=== PATIENT | female | born 1975 | race African-American/Black ===

== ENCOUNTER 2020-10-11 14:04 | Outpatient (REF) | payer MEDICARE, MEDICAID, SELFPAY ==
--- NOTE | 2020-10-11 | US_ITS ---
EXAMINATION: PELVIC ULTRASOUND CLINICAL INFORMATION: Excessive and frequent menstruation COMPARISON: None TECHNIQUE: Transabdominal and transvaginal pelvic ultrasound was performed. Transvaginal exam was performed for better visualization of the uterus and ovaries. FINDINGS: The uterus is anteverted and measures 10 x 4 x 5 cm in dimension. Uterine echotexture is heterogeneous. There is a 3.6 x 2.4 x 3.3 cm hypoechoic area in the anterior body of the uterus questionable for a fibroid. No other focal uterine lesion is seen. Endometrial thickness is normal measuring 3 mm. There are nabothian cysts in the cervix. The ovaries are normal-appearing. The right ovary measures 2.4 x 2.4 x 2.2 cm. The left ovary measures 3.4 x 2.3 x 3.2 cm. There is no fluid in the pelvis. US/US pelvic complete IMPRESSION: Heterogeneous appearing uterus. 3.6 x 2.4 x 3.3 cm hypoechoic area in the anterior uterine body questionable for a fibroid.
--- NOTE | 2020-10-11 | US_ITS ---
EXAMINATION: PELVIC ULTRASOUND CLINICAL INFORMATION: Excessive and frequent menstruation COMPARISON: None TECHNIQUE: Transabdominal and transvaginal pelvic ultrasound was performed. Transvaginal exam was performed for better visualization of the uterus and ovaries. FINDINGS: The uterus is anteverted and measures 10 x 4 x 5 cm in dimension. Uterine echotexture is heterogeneous. There is a 3.6 x 2.4 x 3.3 cm hypoechoic area in the anterior body of the uterus questionable for a fibroid. No other focal uterine lesion is seen. Endometrial thickness is normal measuring 3 mm. There are nabothian cysts in the cervix. The ovaries are normal-appearing. The right ovary measures 2.4 x 2.4 x 2.2 cm. The left ovary measures 3.4 x 2.3 x 3.2 cm. There is no fluid in the pelvis. US/US transvaginal IMPRESSION: Heterogeneous appearing uterus. 3.6 x 2.4 x 3.3 cm hypoechoic area in the anterior uterine body questionable for a fibroid.
== END 2020-10-11 14:05 | disposition home or self-care (01) ==
LOC: HO.HMGCX 14:04
PROVIDERS: PCP Pediatrics; Visit Provider Advanced Practice Midwife
DX: N92.0 Excessive and frequent menstruation with regular cycle (principal)
CPT/HCPCS: 76830; 76856

== ENCOUNTER → 2022-06-26 13:40 | Outpatient (BNVA) | payer MEDICARE, MEDICAID, SELFPAY | PROVIDERS: PCP Pediatrics; Visit Provider Internal Medicine | DX: R11.0 Nausea (principal); R11.10 Vomiting, unspecified | CPT/HCPCS: 99202 ==

== ENCOUNTER 2022-07-31 10:28 | Outpatient (REF) | payer MEDICARE, MEDICAID, SELFPAY ==
--- NOTE | ~2022-07-31 | FL_ITS ---
PROCEDURE: BARIUM SWALLOW/UPPER GI DOUBLE CONTRAST CLINICAL INFORMATION: Vomiting. COMPARISON: None TECHNIQUE: Routine upper GI air-contrast study and barium swallow was performed in upright and lying position. FINDINGS: Following oral administration of thick barium and effervescent granules there is normal propagation of bolus from the oral cavity through the pharynx into stomach without any evidence of obstruction, narrowing or stricture. No laryngeal penetration or aspiration seen. No retention of barium in the valleculae or piriform sinuses. On placing patient supine and prone there is prominent gastric rugae but no ulceration seen. The course, caliber and peristalsis of stomach and the duodenum is normal. There is moderate gastroesophageal reflux without hiatal hernia. There is increased gastric secretions. FL/FL upper GI w Ba Swallow IMPRESSION: Findings highly suspicious for gastritis but no gastric or duodenal ulcer seen. Moderate gastroesophageal reflux but no hiatal hernia seen.
== END 2022-07-31 10:29 | disposition home or self-care (01) ==
LOC: HO.XRAY 10:28
PROVIDERS: PCP Pediatrics; Visit Provider Internal Medicine
DX: R11.10 Vomiting, unspecified (principal)
CPT/HCPCS: 74240

== ENCOUNTER 2022-08-06 11:06 | Outpatient (REF) | payer MEDICARE, MEDICAID, SELFPAY ==
--- NOTE | ~2022-08-06 | US_ITS ---
EXAMINATION: US ABDOMEN COMPLETE CLINICAL INFORMATION: Vomiting, unspecified. COMPARISON: None TECHNIQUE: Real-time imaging of the abdominal viscera. FINDINGS: PANCREAS: Unremarkable ABDOMINAL AORTA: The proximal, mid, and distal segments are normal in caliber. INFERIOR VENA CAVA: Visualized portions are normal. LIVER: Normal. The liver is normal in size. The liver contour is normal. Parenchymal echogenicity is normal. No focal hepatic lesion. There is no intrahepatic biliary duct dilatation seen. GALLBLADDER: Normal. The gallbladder is physiologically distended without evidence of stones, sludge, polyps, wall thickening or pericholecystic fluid. COMMON BILE DUCT: Normal in caliber measuring 0.7 cm in diameter. RIGHT KIDNEY: Normal. No hydronephrosis. No renal calculi or focal parenchymal lesions. The kidney measures 10.4 cm in maximum dimension. LEFT KIDNEY: Normal. No hydronephrosis. No renal calculi or focal parenchymal lesions. The kidney measures 10.2 cm in maximum dimension. SPLEEN: Normal. The spleen measures 6.3 cm in maximum dimension. FREE FLUID: None. US/US abdomen complete IMPRESSION: Normal study.
== END 2022-08-06 11:07 | disposition home or self-care (01) ==
LOC: HO.US 11:06
PROVIDERS: Visit Provider Internal Medicine
DX: R11.10 Vomiting, unspecified (principal)
CPT/HCPCS: 76700

== ENCOUNTER 2022-08-09 13:00 | Day surgery (SDC) | payer MEDICARE, MEDICAID, SELFPAY ==
--- NOTE | 2022-08-08 13:08 | HO.ANESPROP2 ---
Documented by User: Antonina Gonzalez NP 08/08/22 13:09 HPI - Anesthesia Eval Consult details Narrative: 46yo F for Upper Endoscopy PMFSH Active Problems Active Problems: All Active Problems (Updated 06/26/22 @ 16:42 by Gabrielle Castro MD) Nausea (Acute) Vomiting (Acute) Past Medical History Medical History (Updated 08/08/22 @ 13:09 by Antonina Gonzalez NP) Anxiety Asthma Bipolar disorder Chondromalacia Depression Family History Family History Mother HTN (hypertension) Heart attack Surgical History Surgical History (Updated 08/09/22 @ 13:38 by Shanika Begum RN) Hx of section Hx of wisdom tooth extraction Tubal ligation status Social History Social History Household Members: Children Alcohol intake: current Alcohol intake frequency: holidays/special occasions only Patient Tobacco Use Status: Never used Tobacco Substance Use Type: Marijuana Current occupational status: employed 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 Meds Allergies Allergy/AdvReac Type Severity Reaction Status Date / Time latex Allergy Severe Anaphylaxis Verified 08/09/22 13:39 zolpidem [From Ambien] Allergy Severe Confusion Verified 06/26/22 13:50 shrimp Allergy Severe Eye Uncoded 06/26/22 13:50 Swelling Home Medications Medication Instructions Recorded Confirmed Last Taken Type docusate sodium 100 mg capsule 100 mg PO BEDTIME PRN constipation 06/26/22 06/26/22 Unknown History ergocalciferol (vitamin D2) 1,250 1,250 mcg PO QWEEK 06/26/22 06/26/22 Unknown History mcg (50,000 unit) capsule fluticasone propionate 110 0 mcg inhalation 06/26/22 06/26/22 Unknown History mcg/actuation HFA aerosol inhaler (Flovent HFA) loratadine 10 mg tablet 10 mg PO DAILY 06/26/22 06/26/22 Unknown History medroxyprogesterone 150 mg/mL mg IM 06/26/22 06/26/22 Unknown History intramuscular suspension methocarbamol 750 mg tablet 750 mg PO Q8H PRN 06/26/22 06/26/22 Unknown History topiramate 50 mg tablet 50 mg PO BID 06/26/22 06/26/22 Unknown History valacyclovir 500 mg tablet 500 mg PO DAILY 06/26/22 06/26/22 Unknown History Exam Exam Date and Time: August 08, 2022 1308 Assessment and Plan Assessment Anesthesia Assessment: Chart Reviewed Documented by User: Vel Bains MD 08/09/22 17:51 HPI - Anesthesia Eval Consult details Narrative: 46yo F for Upper Endoscopy Patient with history of Asthma and Marijuana smoking . We will give Duo-neb pre-op . [facility] Past Medical History Medical History (Updated 08/08/22 @ 13:09 by Antonina Gonzalez NP) Anxiety Asthma Bipolar disorder Chondromalacia Depression Functional capacity: independent ambulation Family History Family History Mother HTN (hypertension) Heart attack Family history of problems with anesthesia: No Surgical History Surgical History (Updated 08/09/22 @ 13:38 by Shanika Begum RN) Hx of section Hx of wisdom tooth extraction Tubal ligation status History of Problems with Anesthesia: No Social History Social History Household Members: Children Alcohol intake: current Alcohol intake frequency: holidays/special occasions only Patient Tobacco Use Status: Never used Tobacco Substance Use Type: Marijuana Current occupational status: employed 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 Allergies Allergy/AdvReac Type Severity Reaction Status Date / Time latex Allergy Severe Anaphylaxis Verified 08/09/22 13:39 zolpidem [From Ambien] Allergy Severe Confusion Verified 06/26/22 13:50 shrimp Allergy Severe Eye Uncoded 06/26/22 13:50 Swelling Home Medications Medication Instructions Recorded Confirmed Last Taken Type docusate sodium 100 mg capsule 100 mg PO BEDTIME PRN constipation 06/26/22 06/26/22 Unknown History ergocalciferol (vitamin D2) 1,250 1,250 mcg PO QWEEK 06/26/22 06/26/22 Unknown History mcg (50,000 unit) capsule fluticasone propionate 110 0 mcg inhalation 06/26/22 06/26/22 Unknown History mcg/actuation HFA aerosol inhaler (Flovent HFA) loratadine 10 mg tablet 10 mg PO DAILY 06/26/22 06/26/22 Unknown History medroxyprogesterone 150 mg/mL mg IM 06/26/22 06/26/22 Unknown History intramuscular suspension methocarbamol 750 mg tablet 750 mg PO Q8H PRN 06/26/22 06/26/22 Unknown History topiramate 50 mg tablet 50 mg PO BID 06/26/22 06/26/22 Unknown History valacyclovir 500 mg tablet 500 mg PO DAILY 06/26/22 06/26/22 Unknown History Exam Airway Mallampati Class: III TM Dist: >3cm Neck ROM: Full Loose/Missing/Broken Teeth: Yes (Poor dentition overall ) Heart: S1,S2 Lungs: b/l breath sounds Assessment and Plan Assessment Anesthesia Assessment: Anesthesia Plan Discussed Final Anesthetic Review Family History of Problems with Anesthesia: No History of Problems with Anesthesia: No NPO: Yes ASA Class: III Final Preanesthetic Review: Meds/Allgs Chart Reviewed, Consent Obtained/Reviewed and Anes Risks/Benef Reviewed Patient Risk: Intermediate Procedure Risk: Intermediate Anesthetic Plan Anesthetic Plan: MAC: Disposition: Standard PACU
[2022-08-09 13:34] VITALS: BMI 28.2; BMI 29.1
[2022-08-09] MEDS: Lactated Ringers 1,000 ML 100 ML IVCONT (14:11)
--- NOTE | 2022-08-09 14:55 | MHC.SHP ---
Pre-Procedural Eval Section A Date of Service: 08/09/22 Section B Chief Complaint: nausea,vomiting Relevant Social History: Other (specify) (marijuana) Present Medications: see Short Stay Collaborative assessment Medical History: No relevant PMH Allergies: Allergies Allergy/AdvReac Type Severity Reaction Status Date / Time latex Allergy Severe Anaphylaxis Verified 08/09/22 13:39 zolpidem [From Ambien] Allergy Severe Confusion Verified 06/26/22 13:50 shrimp Allergy Severe Eye Uncoded 06/26/22 13:50 Swelling Review of Systems Review of Systems Comment: 10 point ROS negative except as above Exam Exam Comment: Gen appear: No acute distress, well nourished HEENT: no icterus, no cervical lymphadenopathy Chest: No overt resp distress Abd: soft, nontender, nondistended Psych: Stable affect, answering questions appropriately Neuro: A/Ox3 noted to move all extremities spontaneously Ext: no peripheral edema Plan Diagnosis/Plan: Unchanged I have reviewed the history and physical and performed a pertinent physical examination on my patient. No changes have occurred unless specified.
--- NOTE | 2022-08-09 15:36 | W.PM.OPN ---
Operative Note Operative Note Date of Service: 08/09/22 Narrative: Procedure: Esophagogastroduodenoscopy Endoscopist: Gabrielle Castro MD Indication: Nausea and vomiting Anesthesia Provider: Mel Gayle CRNA Anesthesia Type: MAC EGD Procedure:?? The procedure, indications, preparation and potential complications were reviewed with the patient, who indicated understanding and gave written informed consent to proceed. A physical exam was performed. The endoscope was introduced through the mouth, and advanced to the second part of duodenum. The patient developed bronchospasm and dropped O2 saturation to 50s% and therefore the procedure was terminated. Please see anesthesia flowsheet for details. Patient was transferred to PACU once her saturations recovered. Upper GI series ordered.
[2022-08-09 15:40] VITALS: BP 120/75; PULSE 97; RESP 16; TEMP 37.7; O2SAT 100
[2022-08-09 15:55] VITALS: BP 107/82; PULSE 82; RESP 18; TEMP 37.1; O2SAT 100
== END 2022-08-09 16:17 | disposition home or self-care (01) ==
PROVIDERS: PCP Pediatrics; Visit Provider Internal Medicine
PROC: 0DJ08ZZ Inspection of Upper Intestinal Tract, Via Natural or Artificial Opening Endoscopic (ICD-10-PCS; CPT 43235; principal; 2022-08-09 14:10)
DX: K91.81 Other intraoperative complications of digestive system (principal); J98.01 Acute bronchospasm; R09.89 Other specified symptoms and signs involving the circulatory and respiratory systems; Y84.8 Other medical procedures as the cause of abnormal reaction of the patient, or of later complication, without mention of misadventure at the time of the procedure; Y73.8 Miscellaneous gastroenterology and urology devices associated with adverse incidents, not elsewhere classified; Y92.234 Operating room of hospital as the place of occurrence of the external cause; K21.9 Gastro-esophageal reflux disease without esophagitis; R11.10 Vomiting, unspecified; F31.9 Bipolar disorder, unspecified; M19.90 Unspecified osteoarthritis, unspecified site; F12.90 Cannabis use, unspecified, uncomplicated; Z79.51 Long term (current) use of inhaled steroids; Z79.899 Other long term (current) drug therapy; Z88.8 Allergy status to other drugs, medicaments and biological substances
CPT/HCPCS: 43235

== ENCOUNTER → 2022-08-28 11:30 | Outpatient (BNVA) | payer MEDICARE, MEDICAID, SELFPAY | PROVIDERS: PCP Pediatrics; Visit Provider Internal Medicine | DX: R11.2 Nausea with vomiting, unspecified (principal); D50.9 Iron deficiency anemia, unspecified | CPT/HCPCS: 99212 ==

== ENCOUNTER 2023-05-06 16:08 | Outpatient (REF) | payer OTHER, SELFPAY ==
[2023-05-06 17:37] LABS: MANUAL DIFF FLAG NO
[2023-05-06 18:02] LABS: Basophils Absolute Auto 0.1 X10*3/uL (0.0-0.2); Basophils Percent Auto 0.7 % (0-2); Eosinophils Absolute Auto 0.1 X10*3/uL (0.0-0.4); Eosinophils Percent Auto 1.6 % (0-4); Hematocrit 35.3 % (37.0-47.0); Imm Gran Abs Auto 0.04 X10*3/uL (0.00-0.03); Imm Gran Pct Auto 0.5 % (0.0-0.4); Lymphocytes Absolute Auto 2.8 X10*3/uL (1.2-4.9); Lymphocytes Percent Auto 34.2 % (20-40); Mean Corpuscular Hemoglobin 32.3 pg (27.0-33.0); Mean Corpuscular Volume 94.9 fL (80.0-98.0); Mean Platelet Volume 10.9 fL (9.4-12.3); Monocytes Absolute Auto 0.6 X10*3/uL (0.1-1.2); Monocytes Percent Auto 7.5 % (2-11); Neutrophils Absolute Auto 4.6 x10*3/uL (2.0-8.3); Neutrophils Percent Auto 55.5 % (45-73); Platelet Count 266 X10*3/uL (160-400); Red Blood Count 3.72 X10*6/uL (4.20-5.50); Red Cell Distribution Width 15.1 % (11.0-16.0); White Blood Count 8.3 X10*3/uL (4.8-10.8)
[2023-05-07 02:12] LABS: Alanine Aminotransferase 17 U/L (0-31); Albumin Level 3.9 g/dL (3.5-5.0); Alkaline Phosphatase 58 U/L (39-117); Anion Gap 10 (12-20); Aspartate Amino Transferase 18 U/L (5-31); Bilirubin Total 0.3 mg/dL (0.0-1.0); Blood Urea Nitrogen 10 mg/dL (9-16); Calcium 8.7 mg/dL (8.4-10.2); Carbon Dioxide 22 mmol/L (22-29); Chloride 111 mmol/L (96-108); Estimated Glomerular Filt Rate > 60; Glucose Random 79 mg/dL (60-115); Potassium 3.2 mmol/L (3.3-5.1); Sodium 140 mmol/L (135-145); Total Protein 6.9 g/dL (6.5-8.0)
[2023-05-07 06:14] LABS: CT PCR NOT DETECTED (Not Detect.); NG PCR NOT DETECTED (Not Detect.)
== END 2023-05-06 16:09 | disposition home or self-care (01) ==
LOC: HO.CHCLDS 16:08
PROVIDERS: Visit Provider Family Medicine
DX: R10.9 Unspecified abdominal pain (principal); R30.0 Dysuria
CPT/HCPCS: 0353U; 36415; 80053; 81513; 85025; 87086; 87480; 87510; 87660

== ENCOUNTER 2023-05-24 10:58 | Outpatient (REF) | payer OTHER, SELFPAY ==
[2023-05-24 14:58] LABS: Anion Gap 13 (12-20); Blood Urea Nitrogen 9 mg/dL (9-16); Calcium 9.4 mg/dL (8.4-10.2); Carbon Dioxide 19 mmol/L (22-29); Chloride 108 mmol/L (96-108); Estimated Glomerular Filt Rate > 60; Glucose Fasting 77 mg/dL (60-99); Potassium 3.3 mmol/L (3.3-5.1); Sodium 137 mmol/L (135-145)
== END 2023-05-24 10:59 | disposition home or self-care (01) ==
LOC: HO.CHCLDS 10:58
PROVIDERS: Visit Provider Family Medicine
DX: E87.6 Hypokalemia (principal)
CPT/HCPCS: 36415; 80048

== ENCOUNTER 2023-06-04 13:31 | Outpatient (REF) | payer OTHER, SELFPAY | END 2023-06-04 13:32 | disposition home or self-care (01) | LOC: HO.CHCLNP 13:31 | PROVIDERS: Visit Provider Pediatrics | DX: N39.0 Urinary tract infection, site not specified (principal) | CPT/HCPCS: 87086 ==

== ENCOUNTER 2023-09-13 11:30 | Outpatient (AMB) | payer OTHER, SELFPAY ==
--- NOTE | 2023-09-13 11:33 | A.OFFVIS_ITS ---
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 Pt reports she had PSG sleep study done in 10/2022, and the result was significant for a moderate degree of sleep apnea. The AHI was 22.4/hr and oxygen neelam was 81%. Pt was told that the CPAP ordered, but she never got her CPAP. Pt continue to endorse loud snoring, disrupted sleep, and gasping arousals and excessive daytime sleepiness. Sleep questionnaire: Have you ever been diagnosed with a sleep disorder? Yes, ROEL. Have you ever had a sleep study in the past? Yes, PSG done in 10/2022. Have you ever been treated for a sleep disorder? Not yet. Do you take medications for a sleep disorder? No. Do you snore? Yes. Do you wake up gasping at night? Yes. Do you have episodes of apneas? Yes. If yes, are they witnessed? Yes. Do you have episodes of nocturnal chest pain or dyspnea? Yes. Do you have difficulty initiating sleep? Yes. Do you have difficulty maintaining sleep? Yes. Do you wake up tired? Yes. Do you have headaches upon awakening? Yes. Do you wake up with dry mouth or throat? Yes. Do you have GERD? Yes. Do you have nocturia? Yes. Do you have nocturnal leg cramps? Yes. Do you have symptoms of restless legs? Yes. Do you act out your dreams? When she has nightmare. Sleep hygiene questionnaire: What is your usual sleep routine? Usual bedtime is at 9 pm; Usual wake up time is at 5:30 am. Do you take naps? If she can. Is your sleep environment cool, dark, and quiet? Yes. Do you exercise? No. Do you take caffeine or other stimulants? Coffee 1-2 cups in the moring. Do you use electronics in bed? Yes, sometimes. What is your work schedule? 3 nights a week, 7 days a week. Hypersomnolence questionnaire: Do you have daytime tiredness or fatigue? Yes. Do you easily fall asleep when inactive? Yes. Have you ever had episodes of sudden weakness? No. Have you ever had episodes of sudden weakness associated with strong emotions? No. 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 Review of Systems Const All systems reviewed & are unremarkable except as noted in HPI and below Physical Exam Vital Signs: Last Vital Signs Pulse 76 09/13/23 11:34 Resp 17 09/13/23 11:34 BP 110/74 09/13/23 11:34 BMI result Body Mass Index 31.2 Const General: cooperative Nutritional Appearance: obese Orientation/consciousness: patient oriented x3 Neck Neck: Yes full ROM and Yes supple Resp Effort & Inspection: normal respiratory effort and able to speak in complete sentences Neuro General: patient oriented x3 and gait normal Cranial nerves: Yes CN's II-XII intact bilaterally Cognition (Neuro): normal cognition Gait exam (Neuro): Normal gait present Motor exam (neuro): 5/5 motor strength present throughout, Pronator motor function not present and no tremor noted Psych Appearance: grossly normal Mental Status: mental status grossly normal Affect: normal affect Attitude: cooperative Assessment & Plan Assessment & Plan (1) ROEL (obstructive sleep apnea): Comment: Moderate degree of sleep apnea. The AHI was 22/hr and oxygen neelam was 81% Code(s): G47.33 - Obstructive sleep apnea (adult) (pediatric) (2) Leg muscle spasm: Code(s): M62.838 - Other muscle spasm Plan Advised patient to start APAP [id number]. The CPAP prescription will send to [facility]. Stressed compliance, use CPAP nightly and more than 4 hrs. Advised patient to try magnesium 400 mg qHS to prevent leg muscle cramping. Medications: New magnesium oxide 400 mg PO BEDTIME 30 days 30 tabs 6RF Coding Level of Care Code New Pt Level 3 (67267) Diagnoses ROEL (obstructive sleep apnea) G47.33 Leg muscle spasm M62.838
[2023-09-13 11:34] VITALS: BP 110/74; PULSE 76; RESP 17; BMI 31.2
== END 2023-09-13 12:04 | disposition home or self-care (01) ==
PROVIDERS: PCP Pediatrics; Visit Provider Nurse Practitioner Family
DX: G47.33 Obstructive sleep apnea (adult) (pediatric) (principal); M62.838 Other muscle spasm
CPT/HCPCS: 99203

== ENCOUNTER → 2023-09-13 11:30 | Outpatient (BNVA) | payer OTHER, SELFPAY | PROVIDERS: PCP Pediatrics; Visit Provider Nurse Practitioner Family | DX: G47.33 Obstructive sleep apnea (adult) (pediatric) (principal); M62.838 Other muscle spasm | CPT/HCPCS: 99202 ==

== ENCOUNTER 2023-10-09 09:44 | Outpatient (REF) | payer OTHER, SELFPAY ==
[2023-10-09 14:30] LABS: MANUAL DIFF FLAG NO
[2023-10-09 14:33] LABS: Basophils Percent Auto 0.2 % (0-2); Hematocrit 40.4 % (37.0-47.0); Hemoglobin 13.8 g/dl (12.0-16.0); Imm Gran Abs Auto 0.09 X10*3/uL (0.00-0.03); Imm Gran Pct Auto 0.7 % (0.0-0.4); Lymphocytes Percent Auto 7.9 % (20-40); Mean Corpuscular HGB Conc 34.2 g/dl (31.0-35.0); Mean Corpuscular Volume 93.7 fL (80.0-98.0); Mean Platelet Volume 11.1 fL (9.4-12.3); Monocytes Absolute Auto 0.5 X10*3/uL (0.1-1.2); Monocytes Percent Auto 3.6 % (2-11); Neutrophils Absolute Auto 11.3 x10*3/uL (2.0-8.3); Neutrophils Percent Auto 87.6 % (45-73); Platelet Count 272 X10*3/uL (160-400); Red Blood Count 4.31 X10*6/uL (4.20-5.50); Red Cell Distribution Width 14.1 % (11.0-16.0); White Blood Count 12.9 X10*3/uL (4.8-10.8)
[2023-10-09 14:51] LABS: Anion Gap 14 (12-20); Blood Urea Nitrogen 8 mg/dL (9-16); Calcium 9.5 mg/dL (8.4-10.2); Carbon Dioxide 19 mmol/L (22-29); Chloride 107 mmol/L (96-108); Estimated Glomerular Filt Rate > 60; Glucose Random 133 mg/dL (60-115); Potassium 3.7 mmol/L (3.3-5.1); Sodium 136 mmol/L (135-145)
[2023-10-09 15:13] LABS: Ferritin 32 ng/mL (10-250)
== END 2023-10-09 09:45 | disposition home or self-care (01) ==
LOC: HO.CHCLDS 09:44
PROVIDERS: Visit Provider Pediatrics
DX: G47.33 Obstructive sleep apnea (adult) (pediatric) (principal); Q28.3 Other malformations of cerebral vessels
CPT/HCPCS: 36415; 80048; 82728; 85025

== ENCOUNTER 2024-03-23 12:08 | Outpatient (REF) | payer OTHER, SELFPAY ==
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
== END 2024-03-23 12:09 | disposition home or self-care (01) ==
LOC: HO.HHCX 12:08
PROVIDERS: Visit Provider Internal Medicine
DX: S16.1XXD Strain of muscle, fascia and tendon at neck level, subsequent encounter (principal)
CPT/HCPCS: 72050

== ENCOUNTER 2024-04-28 14:31 | Outpatient (REF) | payer OTHER, SELFPAY ==
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
== END 2024-04-28 14:32 | disposition home or self-care (01) ==
LOC: HO.HHCX 14:31
PROVIDERS: Visit Provider Internal Medicine
DX: M54.50 Low back pain, unspecified (principal); G89.29 Other chronic pain
CPT/HCPCS: 72100

== ENCOUNTER 2024-09-10 15:58 | Outpatient (REF) | payer OTHER, SELFPAY ==
[2024-09-10 17:30] LABS: MANUAL DIFF FLAG NO
[2024-09-10 17:35] LABS: Basophils Percent Auto 0.6 % (0-2); Eosinophils Absolute Auto 0.1 X10*3/uL (0.0-0.4); Eosinophils Percent Auto 1.5 % (0-4); Hematocrit 37.1 % (37.0-47.0); Hemoglobin 12.8 g/dl (12.0-16.0); Imm Gran Abs Auto 0.02 X10*3/uL (0.00-0.03); Imm Gran Pct Auto 0.3 % (0.0-0.4); Lymphocytes Absolute Auto 2.7 X10*3/uL (1.2-4.9); Lymphocytes Percent Auto 40.9 % (20-40); Mean Corpuscular HGB Conc 34.5 g/dl (31.0-35.0); Mean Corpuscular Hemoglobin 32.5 pg (27.0-33.0); Mean Corpuscular Volume 94.2 fL (80.0-98.0); Mean Platelet Volume 10.7 fL (9.4-12.3); Monocytes Absolute Auto 0.4 X10*3/uL (0.1-1.2); Monocytes Percent Auto 6.6 % (2-11); Neutrophils Absolute Auto 3.3 x10*3/uL (2.0-8.3); Neutrophils Percent Auto 50.1 % (45-73); Platelet Count 235 X10*3/uL (160-400); Red Blood Count 3.94 X10*6/uL (4.20-5.50); Red Cell Distribution Width 15.3 % (11.0-16.0); White Blood Count 6.5 X10*3/uL (4.8-10.8)
[2024-09-10 17:59] LABS: Alanine Aminotransferase 54 U/L (0-31); Albumin Level 3.9 g/dL (3.5-5.0); Alkaline Phosphatase 55 U/L (39-117); Anion Gap 11 (12-20); Aspartate Amino Transferase 63 U/L (5-31); Bilirubin Direct < 0.2 mg/dL (0.0-0.5); Bilirubin Total 0.2 mg/dL (0.0-1.0); Blood Urea Nitrogen 9 mg/dL (9-16); Calcium 9.1 mg/dL (8.4-10.2); Carbon Dioxide 24 mmol/L (22-29); Chloride 110 mmol/L (96-108); Estimated Glomerular Filt Rate > 60; Glucose Random 79 mg/dL (60-115); Lipase 24 U/L (8-78); Potassium 3.2 mmol/L (3.3-5.1); Sodium 142 mmol/L (135-145); Total Protein 7.3 g/dL (6.5-8.0)
[2024-09-10 18:34] LABS: Folate 2.9 ng/mL (> or = 4.0); Vitamin B12 465 pg/mL (200-900)
--- OUTSIDE RECORDS SUMMARY | 2024-09-10 18:50 | XMS_ITS ---
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 Role Phone Cynthia Ralph Unavailable [phone] ALLERGIES, ADVERSE REACTIONS, ALERTS Substance Code Code System Type Reaction Severity Status Start Date End Date Cat RxNorm Other allergy () 0 Shellfish (crab, lobster, shrimp) RxNorm Food allergy ( ) 0 Ambien [id number] RxNorm Drug allergy () 0 MEDICATIONS Medication Code Code System Start Date Stop Date Route Dosage Directions Fill Instructions ibuprofen RxNorm 01/20/20 24 omeprazole RxNorm betamethasone valerate RxNorm 05/11/20 24 topical 1 prednisone [id number] RxNorm 05/11/20 24 oral 1 topiramate RxNorm 12/02/19 24 1 loratadine RxNorm 02/19/20 24 1 PROBLEMS Problem Name Code Code System Start Date End Date Stat us Bipolar disorder, unspecified 79492860 [facility] Active Heartburn 57560150 [facility] Active Toxic effect of venom of bee s, accidental (unintentional), initial encounter 888598355 [facility] 05/11/2024 Active Pruritus, unspecified [id number] [facility] 05/11/2024 Active ENCOUNTERS Encounter Diagnosis Code Code System Date Stat us Toxic effect of venom of bee s, accidental (unintentional), initial encounter 112124734 [facility] 05/11/2024 Active Pruritus, unspecified 242975876 [facility] 05/11/2024 Act chey IMMUNIZATIONS * None VITAL SIGNS Code Code System Vitals Name Date Value and Un its 8462-4 [facility] Blood Pressure-Diastolic 05/11/2024 81 mmHg 8480-6 [facility] Blood Pressure-Systolic 05/11/2024 1 31 mmHg 8867-[address] [facility] Heart Rate 05/11/2024 101 /min 9279-[address] [facility] Respiratory Rate 05/11/2024 18 /min 8310-[address] [facility] Body Temperature 05/11/2024 96.8 F 41397-[address] [facility] Oxygen Saturation 05/11/2024 95 % SOCIAL HISTORY * None PROCEDURES * None MEDICAL EQUIPMENT * Patient has no history of implantable devices ASSESSMENT * None TREATMENT PLAN Type Description Date MEDICATION Take 50 mg tablet 05/11/2024 MEDICATION Take 0.1 % cream 05/11/2024 ORDERS 1. Wash the area 2-3 times a day with Dial soap and water2.Go to the emergency department for any worsening symptoms with increased pain, fever, or rapidly spreading red line going up the arm 05/11/2024 APPOINTMENT If not feeling chris r in 3 day(s), please see your primary care physician. If you do not have a primary care physician, please return to this clinic. 05/11/2024 Lab Tests None GOALS * None HEALTH CONCERNS * No Health Concerns FUNCTIONAL AND COGNITIVE STATUS * None CONSULTATION NOTES * None DISCHARGE SUMMARY NOTES * None HISTORY AND PHYSICAL NOTES * None IMAGING NOTES * None LABORATORY REPORT NARRATIVE NOTES * None PATHOLOGY REPORT NARRATIVE NOTES * None PROGRESS NOTES * None
[2024-09-17 13:44] LABS: Vitamin B6 3.2 ng/mL (2.1-21.7)
== END 2024-09-10 15:59 | disposition home or self-care (01) ==
LOC: HO.CHCLDS 15:58
PROVIDERS: Visit Provider Pediatrics
DX: F31.77 Bipolar disorder, in partial remission, most recent episode mixed (principal)
CPT/HCPCS: 36415; 80048; 80076; 82607; 82746; 83690; 84207; 85025

== ENCOUNTER 2025-01-08 08:24 | Outpatient (AMB) | payer OTHER, SELFPAY ==
--- NOTE | 2025-01-08 08:26 | MHC.OFFVIS ---
Vital Signs 01/08/25 08:27 Height 5 ft 6 in Weight 199 lb 4 oz BMI 32.2 Pulse 67 Pulse Source Pulse Oximeter Pulse Oximetry (%) 98 Oxygen Delivery Method Room Air Intake Visit Reasons: Follow up Intake Note: Patient presents follow up ROEL. Compliance in chart. patient states may need a new study and her mask is ripped and needs a new mask. she called [facility] over a week ago and they have not set her anything. Allergies latex Allergy (Severe, Verified 01/08/25 08:33) Anaphylaxis zolpidem [From Ambien] Allergy (Severe, Verified 01/08/25 08:33) Confusion shrimp Allergy (Severe, Uncoded 09/13/23 11:34) Eye Swelling HPI Comments Details: 49 y/o female patient with hx of asthma presents for new in-person visit to manage sleep apnea. Pt reports she had PSG sleep study done in 10/2022, and the result was significant for a moderate degree of sleep apnea. The AHI was 22.4/hr and oxygen neelam was 81%. ROEL Compliance Report 09/30/2024 - 12/28/2024 HST >4 hours 29 days and 32% Avg total days 2 hours and 11 min Pressures are [id number] Median press 8.7cmH20 Leaks /min 26.1 cmH20 AHI is 2.6 cmH20 Pt is having difficulty with her mask as it has been broken and torn at the sides and leaks air. Pt continues to endorse loud snoring, disrupted sleep, and gasping arousals with excessive daytime sleepiness. R. knee braced for osteoarthritis, bilateral knee pain due to grinding of the knee. Still having Leg pain, bilaterally, due to Chondromalacia, however she is unclear as to whether it is sciatica or RLS, she is having numbness and tingling in both feet radiating up to the calves and knees. She does have a history of REM behavior disorders with nightmares, screaming, kicking and moving around alot in her sleep. Her mood is more depressed and she has been drinking more alcohol then usual, she works nights as a [employer] and is unable to get a full nights sleep. She is interested in seeing a psychologist for mental health reasons, howevere right now she has alot on her plate with work and her children. She is taking topiramate 50mg PO BID to help her sleep. She does not smoke or do edibles. 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 Physical Exam Vital Signs: Last Vital Signs Pulse 67 01/08/25 08:27 Pulse Ox 98 01/08/25 08:27 Oxygen Delivery Method Room Air 01/08/25 08:27 BMI result Body Mass Index 32.2 Const General: cooperative Nutritional Appearance: obese Orientation/consciousness: patient oriented x3 Neck Neck: Yes full ROM and Yes supple Resp Effort & Inspection: normal respiratory effort and able to speak in complete sentences Neuro General: patient oriented x3 and gait normal Cranial nerves: Yes CN's II-XII intact bilaterally Cognition (Neuro): normal cognition Gait exam (Neuro): Normal gait present Motor exam (neuro): 5/5 motor strength present throughout, Pronator motor function not present and no tremor noted Psych Appearance: grossly normal Mental Status: mental status grossly normal Affect: normal affect Attitude: cooperative Results Reviewed Results Reviewed: FINDINGS: The lumbar vertebral bodies demonstrate normal height. Overall sagittal alignment is maintained. Small marginal osteophytes at L3-L4. Mild intervertebral disc space narrowing at L3-L4 through L5-S1. The posterior elements appear adequately aligned paraspinal soft tissues appear unremarkable. Bilateral sacroiliac joints are intact. Mild degenerative changes with osteophytosis and endplate sclerosis at T11-T12 and T12-L1. ROEL Compliance Report 09/30/2024 - 12/28/2024 HST >4 hours 29 days and 32% Avg total days 2 hours and 11 min Pressures are [id number] Median press 8.7cmH20 Leaks /min 26.1 cmH20 AHI is 2.6 cmH20 Assessment & Plan Assessment & Plan (1) ROEL (obstructive sleep apnea): Comment: Moderate degree of sleep apnea. The AHI was 22/hr and oxygen neelam was 81% Code(s): G47.33 - Obstructive sleep apnea (adult) (pediatric) Category: Medical (2) RLS (restless legs syndrome): Code(s): G25.81 - Restless legs syndrome Category: Medical (3) Iron deficiency anemia: Code(s): D50.9 - Iron deficiency anemia, unspecified Category: Medical Qualifiers: Iron deficiency anemia type: chronic blood loss Qualified Code(s): D50.0 - Iron deficiency anemia secondary to blood loss (chronic) (4) Bilateral knee pain: Code(s): M25.561 - Pain in right knee; M25.562 - Pain in left knee Category: Medical Qualifiers: Chronicity: unspecified Qualified Code(s): M25.561 - Pain in right knee; M25.562 - Pain in left knee (5) Hip pain, bilateral: Code(s): M25.551 - Pain in right hip; M25.552 - Pain in left hip Category: Medical Plan Broken / Torn mask, will send order for a new mask today. We discussed the importance of compliance today and for greater than 6 hours each night. Also advised she must tape her mask together until she gets a new mask from [facility]. Advised patient to continue to take 400 mg of magnesium qhs to prevent leg muscle cramping, spasms, pins needles. RLS will evaluate at next visit. VASHTI will check Labs. Will re-check the Ferritin. 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 PT for bilateral hip. Chondromalacia knee pain/foot pain, due to sciatica? or RLS? F/u in 3 months for compliance of Moderate ROEL. Orders: Orders PT Evaluation and Treatment Today M25.551 - Pain in right hip, M25.552 - Pain in left hip, M25.561 - Pain in right knee, M25.562 - Pain in left knee, M54.32 - Sciatica, left side Patient Instructions: Sleep Hygiene provided: set a scheduled bedtime and wake time to help regulate the circadian rhythm and balance the release of pituitary hormones. Sleep in a dark room, temperatures below 68 degrees, and no devices n bed. Limit caffeinated products 6 hours prior to bed, and limit fluids 2-4 hours prior to bed. Gentle night yoga, diffusing essential oils, and playing soft music can be relaxing. Compliance was emphasized once again as she sleeps better with the CPAP, however having a broken mask is not helpful. Low Back Pain radiating to the r/l side, stretching and PT can help to strenghten the legs. Small marginal osteophytes at L3-L4. Mild intervertebral disc space narrowing at L3-L4 through L5-S1. RLS will evaluate at next visit. MRI [facility] or [facility]./ Labs/ Coding Level of Care Code Est Pt Level 4 (59604) Diagnoses ROEL (obstructive sleep apnea) G47.33 RLS (restless legs syndrome) G25.81 Iron deficiency anemia due to chronic blood loss D50.0 Iron deficiency anemia type: chronic blood loss Pain in both knees, unspecified chronicity M25.561; M25.562 Chronicity: unspecified Hip pain, bilateral M25.551; M25.552
[2025-01-08 08:27] VITALS: PULSE 67; O2SAT 98; BMI 32.2
--- OUTSIDE RECORDS SUMMARY | 2025-01-08 08:47 | XMS_ITS | Encounter Summary ---
Author Organization [employer] Address [address] [place] [address] Care Team Providers Care Public Service Administrator Name Role Phone Key Rodríguez MD Primary Care Provider [phone] Encounter Details Date Type Department Care Team ([facility] Contact Info) Description 02/05/2023 Orders Only [facility] MED & PEDS [address] [place], [place] [id number] Jacki Steen LPN Social History Tobacco Use Types Packs/Day Years Used Date Smoking Tobacco: Never Passive Smoke Exposure: Never Smokeless Tobacco: Never Comments Unknown Sex and Gender Information Value Date Recorded Sex Assigned at Female 07/23/2022 10:19 AM EDT Legal Sex Female 10:19 AM EDT Gender Identity Female 07/23/2022 10:19 AM EDT Sexual Orientation Choose not to disclose 2021 10:19 AM EDT COVID-19 Exposure Response Date Recorded In the last 10 days, have yo u been in contact with someone who was confirmed or suspected to have Coronavirus/COVID-19? No / Unsure 01/20/2023 10:49 AM EDT documented as of this encounter Plan of Treatment Upcoming Encounters Date Type Department Care Team (Late st Contact Info) Description 02/03/2025 11:00 AM EDT Office Visit [facility] [address] [place] [address] Key Rodríguez MD [address] [place] [address] documented as of this encounter Visit Diagnoses Not on filedocumented in this encounter Additional Health Concerns Assessment Noted Time PHQ-9 Depression Total Score: 12 023 11:24 AM EDT documented as of this encounter Care Teams Public Service Administrator Relationship Specialty Start Date End Date Key Rodríguez MD [address] [place] [id number] PCP - General Family Medicine 09/23/18 documented as of this encounter
--- OUTSIDE RECORDS SUMMARY | 2025-01-08 08:47 | XMS_ITS | Encounter Summary ---
Author Organization [employer] Address [address] [place] [address] Care Team Providers Care Dry Cleaner Name Role Phone Key Rodríguez MD Primary Care Provider [phone] Encounter Details Date Type Department Care Team (Late st Contact Info) Description 02/05/2024 Telephone [facility] AD[facility] DENTAL [address] [place] [address] Jason Duran, DMD [address] [place] [address] Social History Tobacco Use Types Packs/Day Years Used Date Smoking Tobacco: Never Passive Smoke Exposure: Never Smokeless Tobacco: Never Alcohol Use Standard Drinks/Week Comments Never 0 (1 standard drink = 0.6 oz pur e alcohol) Depression Answer Date Recorded Patient Health Questionnaire-9 Score 3 12/02/2023 Patient Health Questionnaire-9 Score 3 12/02/2023 Last PHQ-9: Questionnaire Data Not on file 0 12/02/2023 Depression Answer Date Recorded Patient Health Questionnaire-2 Score 1 12/02/2023 Comments Unknown Sex and Gender Information Value Date Recorded Sex Assigned at Female 07/23/2022 10:19 AM EDT Legal Sex Female 10:19 AM EDT Gender Identity Female 07/23/2022 10:19 AM EDT Sexual Orientation Choose not to disclose 2021 10:19 AM EDT documented as of this encounter Miscellaneous Notes * Telephone Encounter - Twyla Cochran - 02/05/2024 12:26 PM EDT Patient insurance could not pay for tuff [employer] insurance says if u send the regular kind not the generic [facility] will pay for it Feb 12 2024 at 306 pm pharmacy called they like you to send another scrupt with name brand tooth paste so the insurance will pay documented in this encounter Plan of Treatment Upcoming Encounters Date Type Department Care Team (Late st Contact Info) Description 02/03/2025 11:00 AM EDT Office Visit [facility] MED & PEDS [address] [place] [address] Key Rodríguez MD [address] [place] [address] documented as of this encounter Visit Diagnoses Not on filedocumented in this encounter Additional Health Concerns Assessment Noted Time PHQ-9 Depression Total Score: 3 12/02/19 24 11:23 AM EDT documented as of this encounter Care Teams Dry Cleaner Relationship Specialty Start Date End Date Key Rodríguez MD [address] [place] [address] PCP - General Family Medicine 09/23/18 documented as of this encounter
--- OUTSIDE RECORDS SUMMARY | 2025-01-08 08:47 | XMS_ITS | Encounter Summary ---
Author Organization [employer] Address [address] [place] [address] Care Team Providers Care Floatlight Loading Supervisor Name Role Phone Key Rodríguez MD Primary Care Provider [phone] Reason for Visit * Reason Onset Date Comments Appointment 11/06/2023 [facility] Encounter Details Date Type Department Care Team (Late st Contact Info) Description 10/29/2023 Refill [facility] MEDICINE [address] [place] [address] dAarsh Booth FNP Bipolar affective disorder, remission status unspecified (CMS/[facility]) Social History Tobacco Use Types Packs/Day Years Used Date Smoking Tobacco: Never Passive Smoke Exposure: Never Smokeless Tobacco: Never Alcohol Use Standard Drinks/Week Comments Never 0 (1 standard drink = 0.6 oz pur e alcohol) Depression Answer Date Recorded Patient Health Questionnaire-9 Score 4 08/12/2023 Patient Health Questionnaire-9 Score 4 08/12/2023 Last PHQ-9: Questionnaire Data Not on file 1 10/12/2022 Depression Answer Date Recorded Patient Health Questionnaire-2 Score 0 08/12/2023 Comments Unknown Sex and Gender Information Value Date Recorded Sex Assigned at Female 07/23/2022 10:19 AM EDT Legal Sex Female 10:19 AM EDT Gender Identity Female 07/23/2022 10:19 AM EDT Sexual Orientation Choose not to disclose 2021 10:19 AM EDT documented as of this encounter Miscellaneous Notes * Telephone Encounter - Ayanna Long MA - 11/06/2023 11:21 AM EST T/C placed to pt regarding to re-schedule her apt as tele-visit [facility]. Pt agrees to schedule for 12/02/23. Pt is not active with any other Psych prescriber & still interested in seeing MILL LABOR SUPERVISOR-Adarsh Booth. documented in this encounter Plan of Treatment Upcoming Encounters Date Type Department Care Team ([facility] st Contact Info) Description 02/03/2025 11:00 AM EDT Office Visit [facility]ED[facility] [address] [place] [address] Key Rodríguez MD [address] [place] [address] documented as of this encounter Visit Diagnoses Diagnosis Bipolar affective disorder, remission status unspecified (CMS/HCC) documented in this encounter Additional Health Concerns Assessment Noted Time PHQ-9 Depression Total Score: 4 08/12/20 23 1:51 PM EST documented as of this encounter Care Teams Floatlight Loading Supervisor Relationship Specialty Start Date End Date Key Rodríguez MD [address] [place] [address] PCP - General Family Medicine 09/23/18 documented as of this encounter
--- OUTSIDE RECORDS SUMMARY | 2025-01-08 08:47 | XMS_ITS | Encounter Summary ---
Author Organization [employer] Address [address] [facility] [address] [place] [address] Care Team Providers Care Electrician Manager Name Role Phone Key Rodríguez MD Primary Care Provider [phone] Reason for Visit * Reason Onset Date Comments Med Refill 12/02/2023 Encounter Details Date Type Department Care Team (Late st Contact Info) Description 12/02/2023 Telephone [facility] MEDICINE [address] [place] [address] Key Rodríguez MD [address] [place] [address] Med Refill Social History Tobacco Use Types Packs/Day Years [...] encounter Miscellaneous Notes * Telephone Encounter - Kathy Jay - 12/02/2023 1:02 PM EDT Tc from [facility] calling requesting alternative for Flovent HFA 110 MCG/ACT inhaler, stating is no longer manufactured. documented in this encounter Plan of Treatment Upcoming Encounters Date Type Department Care Team (Late st Contact Info) Description 02/03/2025 11:00 AM EDT Office Visit [facility] MED [facility] PEDS [address] [place] [address] Key Rodríguez MD [address] [place] [address] documented as of this encounter Visit Diagnoses Not on filedocumented in this encounter Additional Health Concerns Assessment Noted Time PHQ-9 Depression Total Score: 3 12/02/19 24 11:23 AM EDT documented as of this encounter Care Teams Electrician Manager Relationship Specialty Start Date End Date Key Rodríguez MD [address] [place] [address] PCP - General Family Medicine 09/23/18 documented as of this encounter
--- OUTSIDE RECORDS SUMMARY | 2025-01-08 08:47 | XMS_ITS | Clinical Summary ---
Author Organization [employer] Address [address] [place] [address] Care Team Providers Care Residential Designer Name Role Phone Key Rodríguez MD Primary Care Provider [phone] Allergies Active Allergy Reactions Criticality Noted Date Comments Cat Dander 05/06/2023 Dust Mite Extract 02/04/2024 Latex Rash Low 08/29/2022 OK to give [place] injections. Shellfish Allergy Swelling 08/29/2022 Zolpidem Hallucinations 09/22/2019 Medications * This document contains information received from the source organization and may not represent a complete record from that organization. ferrous sulfate 325 (65 Fe) MG tablet Take 1 tablet by mouth every 12 (twelve) hours. 016 Active ergocalciferol (Vitamin D2) 1.25 MG (50858 UT) capsuleIndications :Vitamin D deficiency TAKE 1 CAPSULE BY MOUTH ONCE EVERY WEEK 5 capsule 1 022 Active docusate sodium (Colace) 100 MG capsule TAKE 1 CAPSULE BY MOUTH EVERY DAY AT BEDTIME NEEDED FOR CONSTIPATION 023 Active loratadine (Claritin) 10 MG tablet TAKE 1 TABLET BY MOUTH EVERY DAY 023 Active Ventolin HFA 108 (90 Base) MCG/ACT inhalerIndications :Bipolar disorder, in partial remission, most recent episode mixed (CMS/HCC),Moderate persistent asthma in adult without complication INHALE TWO puffs FOUR TIMES DAILY NEEDED 18 g 3 024 Active budesonide (Pulmicort) 180 MCG/ACT inhaler Inhale 1 puff in the morning and at bedtime. Rinse mouth with water after use to reduce aftertaste and incidence of candidiasis. Do not swallow. 1 each Active Sod Fluoride-Potassium Nitrate 1.1-5 % pasteIndications:D entin hypersensitivity,D ental caries Combs teeth for 2 minutes, morning and night. Spit, do not rinse. Do not eat or drink anything for 30 minutes following brushing. 112 g 3 024 Active topiramate 50 MG tablet Take 50 mg by mouth 2 times daily. Take with Topiramate 100 mg twice daily 180 tablet Active topiramate (Topamax) 100 MG tabletIndications: Bipolar affective disorder, remission status unspecified ([facility]) Take 1 tablet (100 mg) by mouth 2 times daily. Take with Topiramate 50 mg twice daily 180 tablet Active Sod Fluoride-Potassium Nitrate 1.1-5 % pasteIndications:D entin hypersensitivity Combs teeth for 2 minutes, morning and night. Spit, do not rinse. Do not eat or drink anything for 30 minutes following brushing. 112 g 024 Active ibuprofen 800 MG tabletIndications: Coccyx pain TAKE 1 TABLET(800 MG) BY MOUTH THREE TIMES DAILY 90 tablet Active folic acid (Folvite) 1 MG tablet Take 1 tablet (1 mg) by mouth Once per day. 30 tablet 09/18 Active cyanocobalamin (Vitamin B-12) 500 MCG tablet Take 1 tab orally daily 30 tablet Active Melatonin 3 MG capsule Take 1 capsule orally nightly prn insomnia 30 capsule Active loratadine (Claritin) 10 MG tablet TAKE 1 TABLET BY MOUTH EVERY DAY 90 tablet Active omeprazole (PriLOSEC) [address] capsule TAKE 1 CAPSULE(40 MG) BY MOUTH BEFORE BREAKFAST. DO NOT CRUSH OR CHEW 90 capsule Active cloNIDine (Catapres) 0.1 MG tablet TAKE 1 TABLET(0.1 MG) BY MOUTH TWICE DAILY 60 tablet 1 Active medroxyPROGESTERon e (Depo-Provera) 150 MG/ML injectionIndicatio ns:Uses control BRING TO OFFICE FOR ADMINISTRATION EVERY THREE MONTHS 1 mL Active diclofenac (Voltaren) 75 MG EC tablet Take 1 tablet (75 mg) by mouth 2 times daily. 60 tablet 1 025 12/23 Active naltrexone (Depade) 50 MG tablet Take 1 tablet (50 mg) by mouth Once per day. 30 tablet 11 025 12/23 Active medroxyPROGESTERon e (Depo-Provera) 150 MG/ML injectionIndicatio ns:Uses control Inject 1 mL (150 mg) into the muscle every 3 (three) months. 1 mL 3 025 12/14 Discontinued naltrexone (Depade) 50 MG tabletIndications: ETOH abuse Take 1 tablet (50 mg) by mouth Once per day for 14 days. 14 tablet 025 12/14 acetaminophen-code ine (Tylenol w/ Codeine #3) 300-30 MG tabletIndications: Coccyx pain Take 1 tablet by mouth every 6 (six) hours if needed for severe pain for up to 5 days. 20 tablet 025 12/12 amoxicillin-clavul anate (Augmentin) 875-125 MG tabletIndications: Right otitis media, unspecified otitis media type Take 1 tablet by mouth 2 times daily for 10 days. 20 tablet 025 01/02 Hospital, Clinic, or Other Facility Administered Medication Ordered Dose Route Frequency Start Date End Date Status medroxyPROGESTERone (Depo-Provera) injection 150 mgIndications:Encounter for surveillance of injectable contraceptive 150 mg IM Once 12/10/2024 Active Active Problems Problem Noted Date Diagnosed Date Viral upper respiratory tract infection 11/04/19 25 Alcohol use disorder 09/28/2024 ETOH abuse 09/10/2024 Coccyx pain 05/18/2024 Assessment & Plan (05/18/2024 11:40 AM EDT): Ordering XR of hips, lumbar, and sacrum for further investigation. Prescribing Ibuprofen, Acetaminophen-Codeine, and Cyclobenzaprine for Sx. 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 Currently on medication management to treat MH disorder. She lost care from therapy services with [facility], and missed appts with Adarsh Hansen for psychopharmacology. Recent in the family has increased sxs. Pt is looking to reconnect with services. PLAN: (check all that apply) Behavioral Health Integration Plan Internal Cold handoff internal psychiatric provider External [facility] self-referred for OP individual therapy and psychiatry services with N. Patient Self Plan Patient to utilize skills provided in intervention , [facility] as [facility], Comply with medication , Patient to engage in OP therapy , and Patient to reach out to [facility] as needed. Message sent to Ayanna Long to discuss options to book psych appointment with Adarsh. Pt missed psychopharmacology appt on 02/18. Information given for the [facility] program/intake with N. Assessment & Plan (12/02/2023 12:04 PM EDT): Presented with hallucinations, anger and explosive personality elements, ?PTSD. Rosser was previously helpful, but developed tremor of hands and lips when took Rosser consistently at 300 mg 2 daily. She is on Depo Provera, with regular follow up, so at very low risk of unintended . She is doing quite well. Continue Topiramate 100 mg plus 50 mg BID. On 06/11/2023 Advised that this provider would be retiring, but we would make every effort to ensure smooth transition of care. She is awaiting reconnection with therapist. F/U with me in 2 months. She agrees with the plan. Assessment & Plan (06/11/2023 1:00 PM EDT): Presented with hallucinations, anger and explosive personality elements, ?PTSD. Rosser was previously helpful, but developed tremor of hands and lips when took Rosser consistently at 300 mg 2 daily. She is on Depo Provera, with regular follow up, so at very low risk of unintended . She is doing quite well. Continue Topiramate 100 mg plus 50 mg BID. Today 06/11/2023 Advised that this provider would be retiring within the year, so consider discussing with therapist a referral to agency prescriber. Meanwhile, F/U with therapist as usual and F/U with me in 2 months. She agrees with the plan. Assessment & Plan (03/25/2023 11:20 AM EDT): Presented with hallucinations, anger and explosive personality elements, ?PTSD. Rosser was previously helpful, but developed tremor of hands and lips when took Rosser consistently at 300 mg 2 daily. She is on Depo Provera, with regular follow up, so at very low risk of unintended . Despite multiple stressors: injuries and financial troubles, she is actually doing well -- able to control her reactivity. Continue Topiramate 100 mg plus 50 mg BID. F/U with therapist as usual and F/U with me in 6 weeks. She agrees with the plan. Assessment & Plan (02/11/2023 3:38 PM EDT): with hallucinations, anger and explosive personality elements, ?PTSD. Rosser was previously helpful, but developed tremor of hands and lips when took Rosser consistently at 300 mg 2 daily. She is on Depo Provera, with regular follow up, so at very low risk of unintended . Not doing as well, with depressed mood and increasing panic attacks. Will increase to Topiramate 100 mg plus 50 mg BID. F/U with therapist as usual and F/U with me in 6 weeks. She agrees with the plan. Assessment & Plan (12/31/2022 11:47 AM EDT): with hallucinations, anger and explosive personality elements, ?PTSD. Rosser was previously helpful, but developed tremor of hands and lips when took Rosser consistently at 300 mg 2 daily. She is on Depo Provera, with regular follow up, so at very low risk of unintended . Despite frustration with recent health problems including fractured coccyx after a fall, mood is still pretty good with Topiramate 100 mg BID and she does not want to consider any changes at this time. F/U with therapist as usual and F/U with me in 6 weeks. She agrees with the plan. Assessment & Plan (11/15/2022 12:40 PM EST): with hallucinations, anger and explosive personality elements, ?PTSD. Rosser was previously helpful, but developed tremor of hands and lips when took Rosser consistently at 300 mg 2 daily. She is on Depo Provera, with regular follow up, so at very low risk of unintended . Doing much better with Topiramate 100 mg BID. F/U with therapist as usual and F/U with me in 6 weeks. She agrees with the plan. Assessment & Plan (10/01/2022 11:35 AM EST): with hallucinations, anger and explosive personality elements, ?PTSD. Rosser was previously helpful, but developed tremor of hands and lips when took Rosser consistently at 300 mg 2 daily. She is on Depo Provera, with regular follow up, so at very low risk of unintended . She has been taking the Topiramate 50 mg 1.5 tabs BID. Along with therapy, this seemed to be helping her mood, but still not sufficiently stable. At this time will increase to Topiramate 100 mg BID. F/U with therapist as usual and F/U with me in 6 weeks. She agrees with the plan. Obesity 12/21/2011 Encounters * This document contains information received from the source organization and may not represent a complete record from that organization. Date Type Department Care Team Description 12/23/2024 10:30 AM EDT Office Visit [facility] [address] [place] [address] Key Rodríguez MD URI, acute (Primary Dx); Right otitis media, unspecified otitis media type; Dietary counseling; Exercise counseling; Alcohol use disorder; Viral upper respiratory tract infection 12/23/2024 Travel 12/12/2024 Refill [facility] [address] [place] [address] Josette Fairchild MD Uses control 12/08/2024 Telephone [facility] [address] [place] [address] Key Rodríguez MD 12/07/2024 Refill [facility] [address] [place] [address] eKy Rodríguez MD Coccyx pain (Primary Dx) 11/30/2024 Refill [facility] [address] [place] [address] Vy Vyas RN 11/30/2024 Telephone [facility] [address] [place] [address] Josh Srivastava MD 11/30/2024 Telephone [facility] [address] [place] [phone] [place] 11/30/2024 Telephone [facility] [address] [place] [phone] [place] 11/30/2024 Telephone [facility] [address] [place] [address] Key Rodríguez MD Med Refill; Medication Question 11/30/2024 Refill [facility] [address] [place] [address] Key Rodríguez MD 11/12/2024 Refill [facility] [address] [place] [address] Key Rodríguez MD 11/05/2024 Telephone [facility] [address] [place] [phone] Key Rodríguez MD Durable Medical Equipment 11/04/2024 9:40 AM EST Office Visit [facility] [address] [place] [address] Key Rodríguez MD URI, acute (Primary Dx); ETOH abuse; Congenital anomaly of cerebrovascular system 11/04/2024 Telephone [facility] [address] [place] [phone] [place] 11/04/2024 Travel from Last 3 Months Immunizations Name Administration Dates Next Due Influenza injectable quadriv alent IIV4 with preservative 05/30/2023,08/07/2018,06/29/2016 Influenza injectable quadriv alent preservative free 07/27/2022,07/12/2021,06/21/2020,2018,07/11/2017 Influenza, Split (incl. kalpesh fied surface antigen) 08/03/2013,06/11/2012 Influenza, seasonal, injecta ble, preservative free 06/09/2015 MMR 02/22/2014 Tdap 02/24/2014 Social History Tobacco Use Types Packs/Day Years Used Date Smoking Tobacco: Never Passive Smoke Exposure: Never Smokeless Tobacco: Never Tobacco Cessation:Counseling Given: Not Answered Alcohol Use Standard Drinks/Week Comments Never 0 (1 standard drink = 0.6 oz pur e alcohol) Depression Answer Date Recorded Patient Health Questionnaire-9 Score 9 03/03/2024 Patient Health Questionnaire-9 Score 9 03/03/2024 Last PHQ-9: Questionnaire Data Not on file 0 03/03/2024 Depression Answer Date Recorded Patient Health Questionnaire-2 Score 4 03/03/2024 Comments Unknown Sex and Gender Information Value Date Recorded Sex Assigned at Female 07/23/2022 10:19 AM EDT Legal Sex Female 10:19 AM EDT Gender Identity Female 07/23/2022 10:19 AM EDT Sexual Orientation Choose not to disclose 2021 10:19 AM EDT Last Filed Vital Signs Vital Sign Reading Time Taken Comments Blood Pressure 142/96 12/23/2024 11:02 AM EDT Pulse 78 12/23/2024 11:02 AM EDT Temperature 37 ??C (98.6 ??F) 12/23/2024 11:02 AM EDT Respiratory Rate 20 12/23/2024 11:02 AM EDT Oxygen Saturation 99% 12/23/2024 11:02 AM EDT Inhaled Oxygen Concentration - - Weight 91.6 kg (202 lb) 12/23/2024 11:02 AM EDT Height 165.1 cm (5' 5 ) 12/23/2024 11:02 AM EDT Body Mass Index 33.61 12/23/2024 11:02 AM EDT Plan of Treatment Upcoming Encounters Date Type Department Care Team ([facility] Contact Info) Description 02/03/2025 11:00 AM EDT Office Visit [facility] [address] [place] [address] Key Rodríguez MD [address] [place] [address] Health Maintenance Due Date Last Done Comments CT Colonography 1976 Colonoscopy 1976 FIT 1976 Lipid Panel 1976 SDOH Screening 1976 Sigmoidoscopy 1976 Alcohol/Substance Use Screening 1988 Hepatitis B Vaccines (1 of 3 - 19+ 3-dose series) 11/22/1995 Mammogram 2016 DTaP/Tdap/Td Vaccines (2 - Td or Tdap) 02/25/2024 02/24/2014 COVID-19 Vaccine ( season) 2024 07/05/2022, 03/08/2021, 02/08/2021 Influenza Vaccine (#1) 2024 , 07/27/2022, 07/12/2021, Additional history exists Dental Oral Exam 08/07/2024 02/04/2024, 08/29/2022 Dental Prophylaxis 08/07/2024 02/04/2024, 08/29/2022 Depression Monitoring 09/02/2024 03/03/2024, 024 Dental X-Ray: Bitewings 02/04/2025 02/04/2024, 08/29 Pap Smear 02/22/2025 02/22/2022 Depression Screening 03/03/2025 03/03/2024, 03/03/20 24 FOBT 06/18/2025 06/18/2024 Family Planning (PISQ) 09/24/2025 09/24/2024 Tobacco Screening 11/04/2025 11/04/2024 Zoster Vaccines (1 of 2) 2026 Dental X-Ray: Full Mouth 02/04/2027 02/04/2024 Cervical Cancer Screening 02/22/2027 HPV/Cotest 02/22/2027 02/22/2022, 09/04/2018 Colorectal Cancer Screening 06/18/2027 FIT DNA/Cologuard 06/18/2027 06/18/2024, 06/12/2024 RSV Patients and Patients Aged 60 years or older (1 - 1-dose 75+ series) 11/22/2051 HIV Screening Completed 07/12/2021, 07/12/2021 Hepatitis C Screening Completed 07/12/2021 HIB Vaccines Aged Out No longer eligi ble based on patient's age to complete this topic HPV Vaccines Aged Out No longer eligi ble based on patient's age to complete this topic Hepatitis A Vaccines Aged Out No long er eligible based on patient's age to complete this topic IPV Vaccines Aged Out No longer eligi ble based on patient's age to complete this topic Meningococcal Vaccine Aged Out No munir shobha eligible based on patient's age to complete this topic Pneumococcal Vaccine: Pediatrics (0 to 5 Years) and At-Risk Patients (6 to 49) Years) Aged Out No longer eligible based on patient's age to complete this topic RSV under 20 months Aged Out No longe r eligible based on patient's age to complete this topic Rotavirus Vaccines Aged Out No longer eligible based on patient's age to complete this topic Procedures Procedure Name Priority Date/Time Associated Diagnosis Comments POCT INFLUENZA B Routine 11/04/2024 10:3 3 AM EST URI, acute POCT INFLUENZA A Routine 11/04/2024 10:3 2 AM EST URI, acute POCT RAPID COVID ANTIGEN Routine 11/04/2024 10:31 AM EST URI, acute HM FIT DNA/COLOGUARD CANCER SCREENING Routine 06/18/2024 PROPHYLAXIS - ADULT Routine 02/04/2024 2 :00 PM EDT Dentin hypersensitivity Dental caries INTRAORAL - COMPLETE SERIES OF RADIOGRAPHIC IMAGES Routine 02/04/2024 2:00 PM EDT Dentin hypersensitivity Dental caries PERIODIC ORAL EVALUATION - ESTABLISHED PATIENT Routine 02/04/2024 2:00 PM EDT Dentin hypersensitivity Dental caries THINPREP IMAGING PAP AND HPV MRNA E6/E7, WITH CT/NG, TRICHOMONAS Routine 02/22/2022 12:00 AM EDT ZZZ HISTORICAL HEPATITIS C AB W/REFL TO HCV RNA, QN, PCR Routine 07/12/2021 10:17 AM EDT HIV 1/2 ANTIGEN/ANTIBODY, FOURTH GENERATION W/RFL Routine 07/12/2021 10:17 AM EDT from Last 3 Months or Most Recently Relevant to Health Maintenance Results * POCT Rapid Influenza B OSOM (11/04/2024 10:33 AM EST) [facility] Rapid Influenza B Ag Negative Negative, Indeterminate QC Media Lot # [id number] Lot# Expiration Date 63, Swab 11/04/2024 10:3 3 AM EST us Key Rodríguez MD POINT OF CARE TEST ENTER/EDIT ORDERABLES Final Result * POCT Rapid Influenza A OSOM (11/04/2024 10:32 AM EST) [facility] Rapid Influenza A Ag Negative Negative, Indeterminate QC Media Lot # [id number] Lot# Expiration Date 63, Swab Nasopharyngeal structure / Unknown 11/04/2024 10:32 AM EST us Key Rodríguez MD POINT OF CARE TEST ENTER/EDIT ORDERABLES Final Result * POCT Rapid Covid-19 BinaxNOW (11/04/2024 10:31 AM EST) [facility] Rapid COVID Ag Negative QC Media Lot # [id number] Lot# Expiration Date 71,126 Swab 11/04/2024 10:3 1 AM EST us Key Rodríguez MD POINT OF CARE TEST ENTER/EDIT ORDERABLES Edited Result - Final * FIT DNA/Cologuard Cancer Screening (06/18/2024) [facility] Cologuard Cancer Screen Negative Stool us Key Rodríguez MD HEALTH MAINTENANCE Final Resu lt * (ABNORMAL) THINPREP TIS PAP AND HPV mRNA E6/E7, CT/NG, TRICH (02/22/2022 12:00 AM EDT) Chlamydia trachomatis RNA, TMA, Urogenital NOT DETECTED NOT DETECTED [facility] Clinical Information: None given [facility] COMMENT SEE COMMENT [facility] Comment: The analytical performance characteristics of this assay, when used to test SurePath(TM) specimens have been determined by [facility]. The modifications have not been cleared or approved by the FDA. This assay has been validated pursuant to the CLIA regulations and is used for clinical purposes. ?? For additional information, please refer to https://education.Easy Vino/faq/IUW333 (This link is being provided for information/ educational purposes only.) ?? COMMENT SEE COMMENT [facility] Comment: EXPLANATORY NOTE: ? The Pap is a screening test for cervical cancer. It is ?? not a diagnostic test and is subject to false negative ?? and false positive results. It is most reliable when a ?? satisfactory sample, regularly obtained, is submitted ?? with relevant clinical findings and history, and when ?? the Pap result is evaluated along with historic and ?? current clinical information. ?? COMMENT: SEE COMMENT [facility] Comment: This case could not be evaluated with computer assisted technology. The slide was manually screened according to routine procedures. Rotary Drum Tanner: SEE COMMENT [facility] Comment: ALS, CT(ASCP) CT screening location: [address] ??[address] HPV nRNA E6/E7 Not Detected Not Detected [facility] Comment: Methodology: Home Energy Consultant-Mediated Amplification This assay detects E6/E7 viral messenger RNA (mRNA) from 14 high-risk HPV types (16,18,31,33,35,39,45,51,52,56,58,59,66,68). ? Cervical sources are required for HPV testing. If a vaginal source from a patient who has had a total hysterectomy with removal of cervix was ?? submitted, please contact the testing laboratory for alternative testing options. ?? For additional information, please refer to http://[email or web address].Easy Vino/faq/OIX325k3 (This link if provided for information/ educational purposes only.) Infection Trichomonas vaginalis identified. [facility] Interpretation/Re sult: Negative for intraepithelial lesion or malignancy. [facility] LMP: NONE GIVEN [facility] Neisseria gonorrhoeae RNA, TMA, Urogenital NOT DETECTED NOT DETECTED [facility] Prev. BX: NONE GIVEN [facility] Prev. PAP: NONE GIVEN [facility] Review Rot[employer] Drum Tanner: SEE COMMENT [facility] Comment: DCR, CT(ASCP) CT screening location: [address] ??[id number] SOURCE: None given [facility] Statement Of Adequacy: SEE COMMENT [facility] Comment: Satisfactory for evaluation. Endocervical/transformation zone component present. Age and/or menstrual status not provided Trichomonas vaginalis, QL, TMA, PAP Vial DETECTED(A) NOT DETECTED [facility] Comment: The analytical performance characteristics of this assay have been determined by [facility]. The modifications have not been cleared or approved by the FDA. This assay has been validated pursuant to the CLIA regulations and is used for clinical purposes. ?? For additional information, please refer to [email or web address] Vino/ [email or web address]/[email or web address] (This link is being provided for information/ educational purposes only.) ?? 02/22/2022 Key Rodríguez MD LAB PATHOLOGY ORDERABLES Jo massey Result [facility] [address] * HEPATITIS C AB W/REFL TO HCV RNA, QN, PCR (07/12/2021 10:17 AM EDT) HEPATITIS C ANTIBODY NON-REACT TOBIAS NON-REACT TOBIAS [facility] INDEX 0.01 <1.00 [facility] Comment: ?? HCV antibody was non-reactive. There is no laboratory ?? evidence of HCV infection. ?? In most cases, no further action is required. However, if recent HCV exposure is suspected, a test for HCV RNA (test code 37306) is suggested. ?? For additional information please refer to http://LessonLab.Easy Vino/faq/ZZY34m8 (This link is being provided for informational/ educational purposes only.) ?? 07/12/2021 10:1 7 AM EDT us Key Rodríguez MD HISTORICAL/NON ORDERABLE LABS Final Result Performing Organization Address [facility] Phone Number [facility] [address] * HIV 1/2 ANTIGEN/ANTIBODY,FOURTH GENERATION W/RFL (07/12/2021 10:17 AM EDT) [facility] HIV-1/2 ANTIGEN AND ANTIBODIES, 4TH GENERATION W/ REFLEX NON-REACT TOBIAS NON-REACT TOBIAS [facility] Comment: HIV-1 antigen and HIV-1/HIV-2 antibodies were not detected. There is no laboratory evidence of HIV infection. ?? PLEASE NOTE: This information has been disclosed to you from records whose confidentiality may be protected by state law. ??If your state requires such protection, then the state law prohibits you from making any further disclosure of the information without the specific written consent of the person to whom it pertains, or as otherwise permitted by law. A general authorization for the release of medical or other information is NOT sufficient for this purpose. ? For additional information please refer to http://[employer] Vino/faq/TQH922 (This link is being provided for informational/ educational purposes only.) ? The performance of this assay has not been clinically validated in patients less than 2 years old. ?? 07/12/2021 10:1 7 AM EDT us Key Rodríguez MD LAB BLOOD ORDERABLES Final Re sult Performing Organization Address [facility] de Phone Number [facility] [address] from Last 3 Months or Most Recently Relevant to Health Maintenance Insurance [facility] Member Subscriber Plan / Payer (Ef fective 2022-Present) Name:Scott Miner Relation to Subscriber:Self Name:Scott Miner Payer ID:Not on file Group ID:[id number] Type:Not on file Address: [address] [facility] STAND ADULT Care Teams Residential Designer Relationship Specialty Start Date End Date Key Rodríguez MD [address] [place] [address] PCP - General Family Medicine 09/23/18
--- OUTSIDE RECORDS SUMMARY | 2025-01-08 08:47 | XMS_ITS | Encounter Summary ---
Author Organization [employer] Address [address] [facility] 7t [place] [address] Care Team Providers Care Mixing Engineer Name Role Phone Key Rodríguez MD Primary Care Provider [phone] Reason for Visit * Reason Onset Date Comments Durable Medical Equipment 11/05/2024 Encounter Details Date Type Department Care Team (Late st Contact Info) Description 11/05/2024 Telephone [facility] MEDICINE [address] [place] [address] Key Rodríguez MD [address] [place] [address] Durable Medical Equipment Social History Tobacco Use Types Packs/Day Years [...] encounter Miscellaneous Notes * Telephone Encounter - Prerna Sesay LPN - 11/05/2024 1:44 PM EST Please review message below and advise, if agreed please provide DX and length. Tc from pt requesting compression socks to be sent to [facility]. Pt is requesting a call back [phone] * Telephone Encounter - Vijay Barriga - 11/05/2024 10:41 AM EST Tc from pt requesting compression socks to be sent to [facility]. Pt is requesting a call back [phone] documented in this encounter Plan of Treatment Upcoming Encounters Date Type Department Care Team ([facility] st Contact Info) Description 02/03/2025 11:00 AM EDT Office Visit [facility] MED & PEDS [address] [place] [address] Key Rodríguez MD [address] [place] [address] documented as of this encounter Visit Diagnoses Not on filedocumented in this encounter Additional Health Concerns Assessment Noted Time PHQ-9 Depression Total Score: 9 03/03/20 24 3:00 PM EDT documented as of this encounter Care Teams Mixing Engineer Relationship Specialty Start Date End Date Key Rodríguez MD [address] [place] [address] PCP - General Family Medicine 09/23/18 documented as of this encounter
--- OUTSIDE RECORDS SUMMARY | 2025-01-08 08:47 | XMS_ITS | Encounter Summary ---
Author Organization [employer] Address [address] [facility] 7t [place] [address] Care Team Providers Care Rn International Name Role Phone Key Rodríguez MD Primary Care Provider [phone] Reason for Visit * Reason Comments Med Refill Encounter Details Date Type Department Care Team ([facility] Contact Info) Description 02/05/2023 Refill [facility] MED & PEDS [address] [place] [address] Key Rodríguez MD [address] [place] [address] Social History Tobacco Use Types Packs/Day Years [...] Upcoming Encounters Date Type Department Care Team ([facility] Contact Info) Description 02/03/2025 11:00 AM EDT Office Visit [facility] MED & PEDS [address] [place] [address] Key Rodríguez MD [address] [place], [place] [id number] documented as of this encounter Visit Diagnoses Not on filedocumented in this encounter Additional Health Concerns Assessment Noted Time PHQ-9 Depression Total Score: 12 023 11:24 AM EDT documented as of this encounter Care Teams Rn International Relationship Specialty Start Date End Date Key Rodríguez MD [address] [place] [address] PCP - General Family Medicine 09/23/18 documented as of this encounter
--- OUTSIDE RECORDS SUMMARY | 2025-01-08 08:47 | XMS_ITS | Encounter Summary ---
Author Organization [employer] Address [address] [facility] [address] [place] [address] Care Team Providers Care Sand And Gravel Plant Operator Name Role Phone Key Rodríguez MD Primary Care Provider Encounter Details Date Type Department Care Team ([facility] Contact Info) Description 04/08/2023 Orders Only [facility] MEDICINE [address] [place] [address] Anika Messina LPN Social History Tobacco Use Types Packs/Day Years Used Date Smoking Tobacco: Never Passive Smoke Exposure: Never Smokeless Tobacco: Never Alcohol Use Standard Drinks/Week Comments Never 0 (1 standard drink = 0.6 oz pur e alcohol) Comments Unknown Sex and Gender Information Value [...] Description 02/03/2025 11:00 AM EDT Office Visit [facility] MED & PEDS [address] [place] [address] Key Rodríguez MD [address] [place] [address] documented as of this encounter Visit Diagnoses Not on filedocumented in this encounter Additional Health Concerns Assessment Noted Time PHQ-9 Depression Total Score: 9 03/25/20 23 10:35 AM EDT documented as of this encounter Care Teams Sand And Gravel Plant Operator Relationship Specialty Start Date End Date Key Rodríguez MD [address] [place] [address] PCP - General Family Medicine 09/23/18 documented as of this encounter
--- OUTSIDE RECORDS SUMMARY | 2025-01-08 08:47 | XMS_ITS | Encounter Summary ---
Author Organization [employer] Address [address] [facility] 7t [place] [address] Care Team Providers Care Library Science Professor Name Role Phone Key Rodríguez MD Primary Care Provider [phone] Reason for Visit * Reason Comments Med Refill Encounter Details Date Type Department Care Team ([facility] Contact Info) Description 02/19/[address] [facility] MED & PEDS [address] [place] [address] Key Rodríguez MD [address] [place] [address] Social History Tobacco Use Types Packs/Day Years [...] Upcoming Encounters Date Type Department Care Team ([facility] Contact Info) Description 02/03/2025 11:00 AM EDT Office Visit [facility] MED & PEDS [address] [place] [address] Key Rodríguez MD [address] [place], [place] [id number] documented as of this encounter Visit Diagnoses Not on filedocumented in this encounter Additional Health Concerns Assessment Noted Time PHQ-9 Depression Total Score: 13 023 3:00 PM EDT documented as of this encounter Care Teams Library Science Professor Relationship Specialty Start Date End Date Key Rodríguez MD [address] [place] [address] PCP - General Family Medicine 09/23/18 documented as of this encounter
--- OUTSIDE RECORDS SUMMARY | 2025-01-08 08:47 | XMS_ITS | Encounter Summary ---
Author Organization [employer] Address [address] [facility] 7t [place] [address] Care Team Providers Care Industrial Methods Consultant Name Role Phone Key Rodríguez MD Primary Care Provider [phone] Encounter Details Date Type Department Care Team (Latest Contact Info) Description 01/20/2019 Abstract [facility] CONVERSIONS Dental, Provider, DDS Social History Tobacco Use Types Packs/Day Years Used Date Smoking Tobacco: Never Assessed Comments Unknown Sex and Gender Information Value [...] Description 02/03/2025 11:00 AM EDT Office Visit [facility] MED & PEDS [address] [place] [address] Key Rodríguez MD [address] [place] [address] documented as of this encounter Visit Diagnoses Not on filedocumented in this encounter Care Teams Industrial Methods Consultant Relationship Specialty Start Date End Date Key Rodríguez MD [address] [place] [address] PCP - General Family Medicine 09/23/18 documented as of this encounter
--- OUTSIDE RECORDS SUMMARY | 2025-01-08 08:47 | XMS_ITS | Encounter Summary ---
Author Organization [employer] Address [address] [facility] 7t [place] [address] Care Team Providers Care Cement Patcher Name Role Phone Key Rodríguez MD Primary Care Provider [phone] Encounter Details Date Type Department Care Team (Latest Contact Info) Description 11/29/2020 Abstract [facility] CON[facility] Dental, Provider, DDS Social History Tobacco [...] Description 02/03/2025 11:00 AM EDT Office Visit [facility] MED [facility] PEDS [address] [place] [address] Key Rodríguez MD [address] [place] [address] documented as of this encounter Visit Diagnoses Not on filedocumented in this encounter Care Teams Cement Patcher Relationship Specialty Start Date End Date Key Rodríguez MD [address] [place] [address] PCP - General Family Medicine 09/23/18 documented as of this encounter
--- OUTSIDE RECORDS SUMMARY | 2025-01-08 08:47 | XMS_ITS | Encounter Summary ---
Author Organization [employer] Address [address] [facility] 7t [place] [address] Care Team Providers Care Tour Coordinator Name Role Phone Key Rodríguez MD Primary Care Provider [phone] Reason for Visit * Reason Onset Date Comments Covid-19 Testing 10/01/2023 Patient 2 of 2 Encounter Details Date Type Department Care Team (Late st Contact Info) Description 10/01/2023 Telephone [facility] MEDICINE [address] [place] [address] Key Rodríguez MD [address] [place] [phone] Covid-19 Testing (Patient 2 of 2) Social History Tobacco Use Types Packs/Day Years [...] * Telephone Encounter - Kathy Jay - 10/02/2023 9:09 AM EST Tc from pt in regards message below, pt is requesting to be seen today at 3:30. * Telephone Encounter - Randee Adrian RN - 10/01/2023 7:11 PM EST TC returned to patient regarding message below. Patient states that she has been feeling a bit sniffly. She is leery of the rapid home covid tests available at [facility] because her son got a false negative result on that test the same day he later tested positive for covid at our [facility] office. Patient's son scheduled for f/u with Jade Robbins tomorrow, 10/02/23, @ 3:30pm. Patient would like to be seen at the same time in a SDC appointment. 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 She and her son will both wear masks when coming into the office. Routing back to [facility] nurses to evaluate priority for SDC appointment around 3:30pm for thispatient on 10/02/23. Tc from patient calling to request a appt to be tested for the Covid 19 stated son was recently positive and would like to be sure that the patient is negative * Telephone Encounter - Dennis Vo - 10/01/2023 3:16 PM EST Tc from patient calling to request a appt to be tested for the Covid 19 stated son was recently positive and would like to be sure that the patient is negative documented in this encounter Plan of Treatment Upcoming Encounters Date Type Department Care Team (Late st Contact Info) Description 02/03/2025 11:00 AM EDT Office Visit [facility] MED & PEDS [address] [place] [address] Key Rodríguez MD [address] [place] [address] documented as of this encounter Visit Diagnoses Not on filedocumented in this encounter Additional Health Concerns Assessment Noted Time PHQ-9 Depression Total Score: 4 08/12/20 23 1:51 PM EST documented as of this encounter Care Teams Tour Coordinator Relationship Specialty Start Date End Date Key Rodríguez MD [address] [place] [address] PCP - General Family Medicine 09/23/18 documented as of this encounter
== END 2025-01-08 09:12 | disposition home or self-care (01) ==
LOC: HO.HSMS 08:25
PROVIDERS: PCP Pediatrics; Visit Provider Physician Assistant Medical
DX: G47.33 Obstructive sleep apnea (adult) (pediatric) (principal); G25.81 Restless legs syndrome; D50.0 Iron deficiency anemia secondary to blood loss (chronic); M25.561 Pain in right knee; M25.562 Pain in left knee; M25.551 Pain in right hip; M25.552 Pain in left hip
CPT/HCPCS: 99214

== ENCOUNTER → 2025-01-08 08:24 | Outpatient (BNVA) | payer OTHER, SELFPAY | PROVIDERS: PCP Pediatrics; Visit Provider Physician Assistant Medical | DX: G47.33 Obstructive sleep apnea (adult) (pediatric) (principal); G25.81 Restless legs syndrome; M25.561 Pain in right knee; M25.562 Pain in left knee; M25.551 Pain in right hip; M25.552 Pain in left hip; D50.0 Iron deficiency anemia secondary to blood loss (chronic) | CPT/HCPCS: 99212 ==

== ENCOUNTER 2025-02-03 11:34 | Outpatient (REF) | payer OTHER, SELFPAY ==
--- OUTSIDE RECORDS SUMMARY | 2025-02-03 12:29 | XMS_ITS | Encounter Summary ---
Author Organization [employer] Address [address] [facility] 7t [place] [address] Care Team Providers Care Laborer General Name Role Phone Key Rodríguez MD Primary Care Provider [phone] Encounter Details Date Type Department Care Team (Latest Contact Info) Description 01/20/2019 Abstract [facility] CONVERSION[facility] Dental, Provider, DDS Social History [...] as of this encounter Plan of Treatment Not on file documented as of this encounter Visit Diagnoses Not on filedocumented in this encounter Care Teams Laborer General Relationship Specialty Start Date End Date Key Rodríguez MD [address] [facility] [place] [address] PCP - General Family Medicine 09/23/18 documented as of this encounter
--- OUTSIDE RECORDS SUMMARY | 2025-02-03 12:29 | XMS_ITS | Continuity of Care Document ---
Author Organization [place] - [facility], [place] 2nd floor Address [address] [place] [address] Care Team Providers Care Color Control Operator Name Role Phone SHANTE KIMBALL Primary Care Provider Assessment No assessment recorded. Plan of Treatment Reminders Order Date Submit Date Provider Last Modified By Organization Details Last Modified Time Details Appointments INJECTION ONLY 15 2024 08:45A M Dylan Rasheed PA-C Not available Not available Not available Lab None recorded. Referral None recorded. Procedures None recorded. Surgeries None recorded. Imaging None recorded. Medication Orders None recorded. Patient TargetsNo targets recorded. Patient InstructionsNo instructions recorded. Reason for Referral None Reported. Results Created Date Observation Date Name Description Value Unit Range Abnormal Flag Note LastModifiedBy Organization Detail LastModifiedTime 01/26/2001/24/2025 MRI, knee, w/o contr ast [facility] Access ion Number : [id number] Patien t Name: Andressa Reese fabienne Medica l Record Number : [id number] Date of : 1975 Date of Exam: 2024 Referr ing Physic lorie: [facility] [address] [place] [address] Exam: MR Knee (C-) CPT 44148 - Right Room Descri ption: [facility] Pion 3T MR Knee (C-) CPT 40557 CLINIC AL INDICA TION: Reason For Exam: S83.24 1S - Other tear of medial menisc , luis t injury , right knee, sequel a, , R knee mri withou t contra st ?ing MMT Reason For Exam: S83.24 1S - Other tear of medial menisc us, curren t injury , right knee, sequel a, , R knee mri withou t contra st ?ing MMT TECHNI QUE: MRI of the right knee was perfor med withou t intrav enous contra st. COMPAR BLAISE: None FINDIN GS: Joint effusi on: Small joint effusi on and El' s cyst which measur es 5.9 x 2.9 x 2.6 cm. Menisc i: Medial menisc us: Medial menisc us is intact . Latera l menisc us: Mild blunti ng of the free edge of the anteri or horn keepin g with mild free edge radial tear. Tendon s and ligame nts: ACL and PCL are intact . MCL, LCL comple x and poplit eus insert ion are intact . Extens or mechan ism is intact . Bone and articu lar cartil age: Modera te chondr al thinni ng along the anteri or and centra l weight bearin g surfac es of the medial tibiof emoral compar tment. Mild chondr al thinni ng along the medial aspect of the latera l femora l condyl e centra l weight bearin g cortex Mild chondr al fissur ing along the median patell ar ridge and latera l patell ar facet. Tiny tricom partme ntal osteop hytes are presen t. No eviden ce of fractu re, or bone marrow contus ion. The articu lar cartil age is normal in thickn ess. No focal defect s are seen. Nonspe cific subcut aneous soft tissue swelli ng anteri kevin IMPRES EBONY: Mild free edge radial tear at the anteri or horn of the latera l menisc us Chondr al thinni ng greate st within the medial tibiof emoral compar tment Small joint effusi on El' s cyst Electr onical ly Signed By: Jamie Munguia rd, MD [facility] ([facility]) [address], [place], [address], 01/26/2025 13:05:01 01/27/20 25 01/24/2025 MRI, knee, w/o contr ast [facility] Access ion Number : [id number] Patien t Name: Andressa Reesea bryson Record Number : [id number] Date of : 1975 Date of Exam: 2024 Referr ing Physic lorie: [facility] [address], [address] [place] [address] Exam: MR Knee (C-) CPT 87145 - Left Room Descri ption: [facility] Pion 3T MR Knee (C-) CPT 18266 CLINIC AL INDICA TION: Left knee pain TECHNI QUE: MRI of the left knee was perfor med withou t intrav enous contra st. COMPAR BLAISE: None FINDIN GS: Joint effusi on: Small joint effusi on. Edema signal within the supero latera l aspect of Hoffa' s fat pad which can be seen in settin g of fat pad imping ement. Menisc i: The medial and latera l menisc i are intact . Tendon s and ligame nts: ACL and PCL are intact . MCL, LCL comple x and poplit eus insert ion are intact . Extens or mechan ism is intact . Bone and articu lar cartil age: Alignm ent is within normal limits . No eviden ce of fractu re, bone marrow contus ion or focal bone marrow signal abnorm ality. The articu lar cartil age is normal in thickn ess. No focal defect s are seen. Diffus e nonspe cific subcut aneous soft tissue swelli ng greate st anteri kevin. IMPRES EBONY: Edema signal within the supero latera l aspect of Hoffa' s fat pad which can be seen in the settin g of fat pad imping ement. No eviden ce of menisc al tear or ligame ntous injury Small joint effusi on and nonspe cific soft tissue swelli ng Electr onical ly Signed By: Jamie nieves [facility] ([facility]) [address], [place], [address], 01/26/2025 13:05:00 Result Notes None recorded. Problems Name Problem SNOMED Code Status Onset Date Resolution Date Notes Provider Name and Address Organization Details Recorded Time Primary gonarthrosi s, bilateral 983875056 Active 025 Dylan Rasheed PA-C [address], [place], [address], [facility] 12:52:14 Problem Notes None recorded. Procedures Surgical History Date Name Laterality Status Provider Name and Address Organization Details Recorded Time 5 Euflexxa Knee Injection Antonio completed Dylan Rasheed PA-C [address], [place], [address], [facility] 02/03/2025 08:30:20 5 Euflexxa Knee Injection Antonio completed Dylan Rasheed PA-C [address], [place], [address], [facility] 01/30/2025 08:40:07 5 Euflexxa Knee Injection Antonio completed Dylan Rasheed PA-C [address], [place], [address], [facility] 01/26/2025 12:52:07 5 Sports Knee 4&1 completed Dylan Rasheed PA-C [address], [place], [address], [facility] 11/18/2024 12:45:37 Imaging Results None recorded. Procedure Notes None recorded. Medical Equipment None Reported. Allergies Allergen ID Allergen Name Allergen Category Reaction Reaction Severity Criticality Documentation Date Start Date Code Code System Note Provider Name and Address Organization Details Recorded Time 057100 Ambien medicatio n Not available Not available Not available 11/18/2024 58481 5 RxNorm [facility] 5 11:18:09 38125 shrimp allergeni c extract food Not available Not available Not available 11/25/20232017 20384 2 RxNorm Aller gyRea ction : 'Naus ea/Vo mitin g/Judi rrhea '; Not Available [facility] 4 14:22:55 Medications Name Sig Start Date Stop Date Status Note LastModified by Organization Details LastModified Time compounded medication Apply 1-3 grams(pum ps) to the affected area 3-4 times daily 01/21 completed Not Available Not Available Not Available compounded medication Apply 1-3 grams(pum ps) to the affected area 3-4 times daily 2024 active Not Available Not Available Not Avai lable cyclobenzap rine 10 mg tablet active Not Available Not Available Not Available clonidine HCl 0.1 mg tablet active Not Available Not Available Not Available ibuprofen 800 mg tablet active Not Available Not Available Not Available naltrexone 50 mg tablet active Not Available Not Available Not Available melatonin 3 mg tablet TAKE 1 TABLET BY MOUTH ONCE NIGHTLY NEEDED FOR INSOMNIA active Not Available Not Available No t Available acetaminoph en 300 mg-codeine 30 mg tablet TAKE 1 TABLET BY MOUTH EVERY 6 HOURS FOR UP TO 5 DAYS NEEDED FOR SEVERE PAIN active Not Available Not Available No t Available omeprazole 40 mg capsule,del ayed release active Not Available Not Available Not Available magnesium oxide 400 mg (241.3 mg magnesium) tablet TAKE 1 TABLET BY MOUTH EVERY NIGHT AT BEDTIME active Not Available Not Available No t Available cyanocobala min (vit B-12) 500 mcg tablet TAKE 1 TABLET BY MOUTH DAILY active Not Available Not Available No t Available betamethaso ne valerate 0.1 % topical cream APPLY ONCE TWICE DAILY FOR SKIN IRRITATIO N active Not Available Not Available No t Available prednisone 50 mg tablet TAKE 1 TABLET BY MOUTH DAILY FOR 5 DAYS active Not Available Not Available No t Available folic acid 1 mg tablet TAKE 1 TABLET BY MOUTH ONCE DAILY active Not Available Not Available No t Available topiramate 100 mg tablet TAKE 1 TABLET BY MOUTH TWICE DAILY active Not Available Not Available No t Available medroxyprog esterone 150 mg/mL intramuscul ar suspension BRING TO OFFICE FOR ADMINISTR ATION EVERY THREE MONTHS 01/21 completed Not Available Not Available Not Available loratadine 10 mg tablet TAKE 1 TABLET BY MOUTH EVERY DAY active Not Available Not Available No t Available amoxicillin 875 mg-potassiu m clavulanate 125 mg tablet TAKE 1 TABLET BY MOUTH TWICE DAILY FOR 10 DAYS 01/21 completed Not Available Not Available Not Available Ventolin HFA 90 mcg/actuati on aerosol inhaler INHALE 2 PUFFS BY MOUTH FOUR TIMES DAILY NEEDED active Not Available Not Available No t Available cyclobenzap rine 5 mg tablet 01/21 completed Not Available Not Available Not Available topiramate 50 mg tablet TAKE 1 TABLET BY MOUTH TWICE DAILY active Not Available Not Available No t Available sodium fluoride 1.1 %-potassium nitrate 5 % dental paste active Not Available Not Available Not Available Vitals Date Recorded Body height Body mass index (BMI) Body weight Provider Name and Address Organization Details Last Updated DateTime 01/29/2025 167.64 cm 30.7 kg/m2 05895.55 g DAISY BARTON [place] - [facility] 01/29/2025 09:35:32 Social History None recorded. Functional Status None recorded. Mental Status None recorded. Family History Nothing Reported. Medical History Condition Response Sleep Apnea Y Gynecological HistoryNo gynecological history recorded. Obstetrics History GPAL:G 0 P 0 0 0 0 Past Encounters Encounter ID Performer Location Encounter Start Date Encounter Closed Date Diagnosis/Indication Diagnosis SNOMED-CT Code Diagnosis ICD10 Code Diagnosis Note [id number] [facility] [address] [place] [address] 01/21/2025 09:13:06 01/26/2025 12:52:37 Tear of medial meniscus of left knee joint 1223900155 7104 S83.242S Tear of me dial meniscus of right knee joint 3809173871 7102 S83.241S Primary go narthrosis, bilateral 580500577 M17.0 [id number] [facility] [address] [place] [address] 01/29/2025 09:18:51 01/30/2025 08:40:51 Primary gonarthrosis, bilateral 614027705 M17.0 Health Concerns Section Related Observation LastModified by Organization Detai ls LastModified Time None Recorded Concern Status LastModified by Organization Details LastModified Time None Recorded Payers Encounter Date Sequence Insurance Name Policy Number Policy Ross Covered Member ID Ross Member ID Guarantor Name 01/29/2025 1 [facility] - DOS ON OR AFTER 2022 - ONE [employer] (MEDICARE REPLACEMENT/AD VANTAGE - HMO) Scott Miner [id number] Scott Miner Notes Date Note Type Note Provider Name and Address Organization Details Recorded Time 01/29/2025 text/html I am seeing the patient today under the supervision of Dr. Lebron who was available but who did not see the patient. Reason For VisitPatient is here today for Euflexxa injections # 2 of Bilateral knee(s). Patient reports no adverse reaction from previous injections.Following last office visit MRI of both knees was ordered per patient request due to persistent ongoing knee pain. She underwent bilateral knee MRIs on 01/26/2025. The MRIs are available for review today. Physical FindingsEvaluation of the knees reveal no evidence of infection, no significant joint effusion, no warmth, or erythema. The injection sites are benign. Calves are supple and nontender. 5/5 strength. Some discomfort with range of motion. MRI imaging: Bilateral knee MRIs were independently reviewed in the office today. Reports also available for review.Right knee MRI shows increased edema within superolateral aspect of Hoffa's fat pad which can be seen with fat pad impingement. There is no evidence of meniscus or ligament injury. Small nonspecific effusion.Left knee MRI shows chondral thinning most notable about the medial knee compartment with a mild free edge radial tear anterior horn of the lateral meniscus. There is a small joint effusion Assessment? Osteoarthritis of knee -bilateral knees. Plan: We discussed the MRI findings and at this time nothing surgical. Recommendation is for continued conservative management. Will proceed with completion of Euflexxa series.After meticulous sterile preparation, both knees were injected with # __ Euflexxa 20MG. Post-injection precautions were reviewed. I recommend ice, restriction of activities and re-evaluation next week for follow up injection. Dylan Rasheed PA-C [address], [place], [address], [place] - [facility] 01/30/2025 08:40:50 OBGyn Episode No OBEpisode recorded.
--- OUTSIDE RECORDS SUMMARY | 2025-02-03 12:29 | XMS_ITS | Encounter Summary ---
Author Organization [employer] Address [address] [place] [address] Care Team Providers Care Mining Engineering Technologist Name Role Phone Key Rodríguez MD Primary Care Provider Encounter Details Date Type Department Care Team ([facility] st Contact Info) Description 02/05/2023 Orders Only [facility] [address] [place], [place] [id number] Jacki Steen LPN Social History Tobacco Use [...] documented as of this encounter Care Teams Mining Engineering Technologist Relationship Specialty Start Date End Date Key Rodríguez MD [address] [place] [address] PCP - General Family Medicine 09/23/18 documented as of this encounter
--- OUTSIDE RECORDS SUMMARY | 2025-02-03 12:29 | XMS_ITS | Clinical Summary ---
Author Organization [employer] Address [address] [place] [address] Care Team Providers Care Stitch Bonding Machine Drawer In Name Role Phone Key Rodríguez MD Primary Care Provider [phone] Allergies Active Allergy Reactions Criticality Noted Date Comments Cat Dander 05/06/2023 Dust Mite Extract 02/04/2024 Latex Rash Low 08/29/2022 OK to give [place] injections. Shellfish Allergy Swelling 08/29/2022 Zolpidem Hallucinations 09/22/2019 Medications * This document contains information received from the source organization and may not represent a complete record from that organization. ferrous sulfate 325 (65 Fe) MG tablet Take 1 tablet by mouth every 12 (twelve) hours. 016 Active ergocalciferol (Vitamin D2) 1.25 MG (80800 UT) capsuleIndications :Vitamin D deficiency TAKE 1 CAPSULE BY MOUTH ONCE EVERY WEEK 5 capsule 1 022 Active docusate sodium (Colace) 100 MG capsule TAKE 1 CAPSULE BY MOUTH EVERY DAY AT BEDTIME NEEDED FOR CONSTIPATION 023 Active loratadine (Claritin) 10 MG tablet TAKE 1 TABLET BY MOUTH EVERY DAY 023 Active budesonide (Pulmicort) 180 MCG/ACT inhaler Inhale 1 puff in the morning and at bedtime. Rinse mouth with water after use to reduce aftertaste and incidence of candidiasis. Do not swallow. 1 each 024 Active Sod Fluoride-Potassium Nitrate 1.1-5 % pasteIndications:D entin hypersensitivity,D ental caries [place] teeth for 2 minutes, morning and night. Spit, do not rinse. Do not eat or drink anything for 30 minutes following brushing. 112 g 3 024 Active topiramate 50 MG tablet Take 50 mg by mouth 2 times daily. Take with Topiramate 100 mg twice daily 180 tablet 3 024 Active topiramate (Topamax) 100 MG tabletIndications: Bipolar affective disorder, remission status unspecified (CMS/HCC) Take 1 tablet (100 mg) by mouth 2 times daily. Take with Topiramate 50 mg twice daily 180 tablet 3 024 Active Sod Fluoride-Potassium Nitrate 1.1-5 % pasteIndications:D entin hypersensitivity [place] teeth for 2 minutes, morning and night. Spit, do not rinse. Do not eat or drink anything for 30 minutes following brushing. 112 g 3 024 Active ibuprofen 800 MG tabletIndications: Coccyx pain TAKE 1 TABLET(800 MG) BY MOUTH THREE TIMES DAILY 90 tablet Active folic acid (Folvite) 1 MG tablet Take 1 tablet (1 mg) by mouth Once per day. 30 tablet 024 09/18 Active cyanocobalamin (Vitamin B-12) 500 MCG [...] day. 30 tablet 11 025 12/23 Active Ventolin HFA 108 (90 Base) MCG/ACT inhalerIndications :Bipolar disorder, in partial remission, most recent episode mixed (CMS/HCC),Moderate persistent asthma in adult without complication INHALE TWO puffs FOUR TIMES DAILY NEEDED 18 g 3 025 Active acetaminophen-code ine (Tylenol w/ Codeine #3) 300-30 MG tabletIndications: Bilateral chronic knee pain Take 1 tablet by mouth every 6 (six) hours if needed for severe pain for up to 5 days. 20 tablet 025 02/08 Active Ventolin HFA 108 (90 Base) MCG/ACT inhalerIndications :Bipolar disorder, in partial remission, most recent episode mixed (CMS/HCC),Moderate persistent asthma in adult without complication INHALE TWO puffs FOUR TIMES DAILY NEEDED 18 g 3 024 02/03 Discontinued( Reorder (will not trigger notification to Pharmacy)) Hospital, Clinic, or Other Facility Administered Medication [...] (03/03/2024 3:05 PM EDT): During IBH Consult Mickalina presenting with Fear of abandonment, Impulsivity, Affective instability, Feelings of emptiness, Intense anger, and Disassociation; for a period of 24+ mo, for all symptoms in the context of , family issues, and history of mental health since patient was a child. Currently on medication management to treat MH disorder. She lost care from therapy services with [facility] and missed appts with Adarsh Hansen for psychopharmacology. Recent in the family has increased sxs. Pt is looking to reconnect with services. PLAN: (check all that apply) Behavioral Health Integration Plan Internal Cold handoff internal psychiatric provider External [facility] self-referred for OP individual therapy and psychiatry services with [facility] Patient Self Plan Patient to utilize skills provided in intervention , Patient to reach out to [facility] team as needed, Comply with medication , Patient to engage in OP therapy , and Patient to reach out to [facility] as needed. Message sent to Ayanna Long to discuss options to book psych appointment with Adarsh. Pt missed psychopharmacology appt on 02/18. Information given for the [facility] program/intake with [facility] Assessment & Plan (12/02/2023 12:04 PM EDT): Presented with hallucinations, anger and explosive personality elements, ?PTSD. Kelly was previously helpful, but developed tremor of hands and lips when took Kelly consistently at 300 mg 2 daily. She [...] hallucinations, anger and explosive personality elements, ?PTSD. Kelly was previously helpful, but developed tremor of hands and lips when took Kelly consistently at 300 mg 2 daily. She [...] hallucinations, anger and explosive personality elements, ?PTSD. Kelly was previously helpful, but developed tremor of hands and lips when took Kelly consistently at 300 mg 2 daily. She [...] hallucinations, anger and explosive personality elements, ?PTSD. Kelly was previously helpful, but developed tremor of hands and lips when took Kelly consistently at 300 mg 2 daily. She [...] hallucinations, anger and explosive personality elements, ?PTSD. Kelly was previously helpful, but developed tremor of hands and lips when took Kelly consistently at 300 mg 2 daily. She [...] hallucinations, anger and explosive personality elements, ?PTSD. Kelly was previously helpful, but developed tremor of hands and lips when took Kelly consistently at 300 mg 2 daily. She is on Depo Provera, with regular follow up, so at very low risk of unintended . Doing much better with Topiramate 100 mg BID. F/U with therapist as usual and F/U with me in 6 weeks. She agrees with the plan. Assessment & Plan (10/01/2022 11:35 AM EST): with hallucinations, anger and explosive personality elements, ?PTSD. Kelly was previously helpful, but developed tremor of hands and lips when took Kelly consistently at 300 mg 2 daily. She [...] organization. Date Type Department Care Team Description 02/03/2025 11:00 AM EDT Office Visit [facility] [address] [place] [address] Key Rodríguez MD Bilateral chronic knee pain (Primary Dx); Bipolar disorder, in partial remission, most recent episode mixed (CMS/HCC); Moderate persistent asthma in adult without complication; ETOH abuse 02/03/2025 Travel 12/23/2024 10:30 AM EDT Office Visit [facility] [address] [place] [address] Key Rodríguez MD URI, acute (Primary Dx); Right otitis media, unspecified otitis media type; Dietary counseling; Exercise counseling; Alcohol use disorder; Viral upper respiratory tract infection 12/23/2024 Travel 12/12/2024 Refill [facility] [address] [place] [address] Josette Fairchild MD Uses control 12/08/2024 Telephone [facility] [address] [place] [address] Key Rodríguez MD 12/07/2024 Refill [facility] [address] [place] [address] Key Rodríguez MD Coccyx pain (Primary Dx) 11/30/2024 Refill [facility] [address] [place] [address] Vy Vyas RN 11/30/2024 Telephone [facility] [address] [place] [address] Josh Srivastava MD 11/30/2024 Telephone [facility] [address] [place] [address] [place]one [place], [place] 11/30/2024 Telephone [facility] [address] [place] [address] [place] 11/30/2024 Telephone [facility] [address] [place] [address] Key Rodríguez MD Med Refill; Medication Question 11/30/2024 Refill [facility] [address] [place] [address] Key Rodríguez MD 11/12/2024 Refill [facility] [address] [place] [address] Key Rodríguez MD from Last 3 Months Immunizations Immunization Administration Dates Next Due Influenza injectable quadriv [...] Sign Reading Time Taken Comments Blood Pressure 118/71 02/03/2025 11:10 AM EDT Pulse 79 02/03/2025 11:10 AM EDT Temperature 36.7 ??C (98.1 ??F) 02/03/2025 11:10 AM E DT Respiratory Rate 14 02/03/2025 11:10 AM EDT Oxygen Saturation 98% 02/03/2025 11:10 AM EDT Inhaled Oxygen Concentration - - Weight 92.1 kg (203 lb) 02/03/2025 11:10 AM EDT Height 165.1 cm (5' 5 ) 02/03/2025 11:10 AM EDT Body Mass Index 33.78 02/03/2025 11:10 AM EDT Plan of Treatment Health Maintenance Due Date Last Done Comments CT Colonography 1975 Colonoscopy 1976 FIT 1976 Lipid Panel 1975 SDOH Screening 1975 Sigmoidoscopy 1976 Alcohol/Substance Use Screening 1988 Hepatitis B Vaccines (1 of 3 - 19+ 3-dose series) 11/22/1995 Pneumococcal Vaccine: Pediatrics (0 to 5 Years) and At-Risk Patients (6 to 49) Years) (1 of 2 - PCV) 11/22/1995 Mammogram 2016 DTaP/Tdap/Td Vaccines (2 - Td or Tdap) 02/25/2024 02/24/2014 COVID-19 Vaccine ( season) 2024 07/05/2022, 03/08/2021, 02/08/2021 Influenza Vaccine (#1) 2024 , 07/27/2022, 07/12/2021, Additional history exists Dental Oral Exam 08/07/2024 02/04/2024, 08/29/2022 Dental Prophylaxis 08/07/2024 02/04/2024, 08/29/2022 Dental X-Ray: Bitewings 02/04/2025 02/04/2024, 08/29 Pap [...] patient's age to complete this topic Meningococcal B Vaccine Aged Out No l onger eligible based on patient's age to complete [...] Procedure Name Priority Date/Time Associated Diagnosis Comments HM FIT DNA/COLOGUARD CANCER SCREENING Routine 06/18/2024 [...] Recently Relevant to Health Maintenance Results * FIT DNA/Cologuard Cancer Screening (06/18/2024) Cologuard Cancer Screen Negative Stool Key Rodríguez MD HEALTH MAINTENANCE Final Resu lt * (ABNORMAL) THINPREP TIS PAP AND HPV mRNA E6/E7, CT/NG, TRICH (02/22/2022 12:00 AM EDT) Chlamydia trachomatis RNA, TMA, Urogenital NOT DETECTED NOT DETECTED [facility] Clinical Information: None given [facility] COMMENT SEE COMMENT [facility] Comment: The analytical performance characteristics of this assay, when used to test SurePath(TM) specimens have been determined by [employer]. The modifications have not been cleared or approved by the FDA. This assay has been validated pursuant to the CLIA regulations and is used for clinical purposes. ?? For additional information, please refer to https://Glycobia.[employer]las [employer]/faq/FGN790 (This link is being provided for information/ [...] was manually screened according to routine procedures. Data Operations Leader: SEE COMMENT [facility] Comment: ALS, CT(ASCP) CT screening location: [address] ??[address] HPV nRNA E6/E7 Not Detected Not Detected [facility] Comment: Methodology: Camp Dining Room Attendant-Mediated Amplification This assay detects E6/E7 viral messenger RNA (mRNA) from 14 high-risk HPV types (16,18,31,33,35,39,45,51,52,56,58,59,66,68). ? Cervical sources are required for HPV testing. If a vaginal source from a patient who has had a total hysterectomy with removal of cervix was ?? submitted, please contact the testing laboratory for alternative testing options. ?? For additional information, please refer to http://Glycobia.[employer]/faq/WUK611j4 (This link if provided for information/ educational purposes only.) Infection Trichomonas vaginalis identified. [facility] Interpretation/Re sult: Negative for intraepithelial lesion or malignancy. [facility] LMP: NONE GIVEN [facility] Neisseria gonorrhoeae RNA, TMA, Urogenital NOT DETECTED NOT DETECTED [facility] Prev. BX: NONE GIVEN [facility] Prev. PAP: NONE GIVEN [facility] Review Data Operations Leader: SEE COMMENT [facility] Comment: DCR, CT(ASCP) CT screening location: [address] ??[address] SOURCE: None given [facility] Statement Of Adequacy: SEE COMMENT [facility] Comment: Satisfactory for evaluation. Endocervical/transformation zone component present. Age and/or menstrual status not provided Trichomonas vaginalis, QL, TMA, PAP Vial DETECTED(A) NOT DETECTED [facility] Comment: The analytical performance characteristics of this assay have been determined by [employer]. The modifications have not been cleared or approved by the FDA. This assay has been validated pursuant to the CLIA regulations and is used for clinical purposes. ?? For additional information, please refer to http://education.Atlas Scientific/ faq/Trichomonastma (This link is being provided for information/ educational purposes only.) ?? 02/22/2022 Key Rodríguez MD LAB PATHOLOGY ORDERABLES Jo l Result Performing Organization Address [facility] de Phone Number [facility] [address] [place] [address], * HEPATITIS C AB W/REFL TO HCV RNA, QN, PCR (07/12/2021 10:17 AM EDT) HEPATITIS C ANTIBODY NON-REACT TOBIAS NON-REACT TOBIAS [facility] INDEX 0.01 <1.00 [facility] Comment: ?? HCV antibody was non-reactive. There is no laboratory ?? evidence of HCV infection. ?? In most cases, no further action is required. However, if recent HCV exposure is suspected, a test for HCV RNA (test code 04809) is suggested. ?? For additional information please refer to http://education.Atlas [employer]/faq/LAY68t4 (This link is being provided for informational/ educational purposes only.) ?? 07/12/2021 10:1 7 AM EDT Key Rodríguez MD HISTORICAL/NON ORDERABLE LABS Final Result Performing Organization Address [facility] Co de Phone Number [facility] [address] [place] [address], * HIV 1/2 ANTIGEN/ANTIBODY,FOURTH GENERATION W/RFL (07/12/2021 10:17 AM EDT) HIV-1/2 ANTIGEN AND ANTIBODIES, 4TH GENERATION W/ REFLEX NON-REACT TOBIAS NON-REACT TOBIAS [facility] Comment: HIV-1 antigen and HIV-1/HIV-2 [...] ? For additional information please refer to http://education.Atlas Scientific/faq/VDQ423 (This link is being provided for informational/ educational purposes only.) ? The performance of this assay has not been clinically validated in patients less than 2 years old. ?? 07/12/2021 10:1 7 AM EDT us Key Rodríguez MD LAB BLOOD ORDERABLES Final Re sult [facility] [address] from Last 3 Months or Most Recently Relevant to Health Maintenance Insurance ALFONSO SCHULTZ [id number] [facility] ONE CARE < [address] [place] [id number] [facility]AL [facility] STAND ADULT Care Teams Stitch Bonding Machine Drawer In Relationship Specialty Start Date End Date Key Rodríguez MD [address] [place] [address] ALFONSO Schultz [id number] PCP - General Family Medicine 09/23/18
--- OUTSIDE RECORDS SUMMARY | 2025-02-03 12:29 | XMS_ITS | Continuity of Care Document ---
Author Organization [place] - [facility], [place] 2nd floor Address [address] [place] [address] Care Team Providers Care Snap Attacher Name Role Phone SHANTE KIMBALL Primary Care Provider [phone] Assessment No assessment recorded. Plan of Treatment [...] knee, w/o contr ast [facility] Access ion Number : [id number] Patien t Name: Andressa Reese fabienne Medica l Record Number : [id number] Date of : 1975 Date of Exam: 2024 Referr ing Physic lorie: [facility] [address] [place] [address] Exam: MR Knee (C-) CPT 98952 - Right Room Descri ption: [facility] Pion 3T MR Knee (C-) CPT 56542 CLINIC AL INDICA TION: Reason For Exam: [...] ly Signed By: Jamie Munguia rd, MD [facility] ([facility]) [address], [place], [address], 01/26/2025 13:05:01 01/27/20 25 01/24/2025 MRI, knee, w/o contr ast [facility] Access ion Number : [id number] Patien t Name: Andressa Reesea bryson Record Number : [id number] Date of : 1975 Date of Exam: 2024 Referr ing Physic lorie: [facility] [address], [address] [place] [address] Exam: MR Knee (C-) CPT 28161 - Left Room Descri ption: [place] [facility] Pion 3T MR Knee (C-) CPT 36884 CLINIC AL INDICA TION: Left knee pain [...] Electr onical ly Signed By: Jamie nieves [facility] ([facility]) [address], [place], [address], 01/26/2025 13:05:00 Result Notes None recorded. Problems Name Problem SNOMED Code Status Onset Date Resolution Date Notes Provider Name and Address Organization Details Recorded Time Primary gonarthrosi s, bilateral 377694240 Active 025 Dylan Rasheed PA-C [address], [place], [address], [facility] 12:52:14 Problem Notes None recorded. Procedures Surgical History Date Name Laterality Status Provider Name and Address Organization Details Recorded Time 5 Euflexxa Knee Injection Antonio completed Dylan Rasheed PA-C [address], [place], [address], [facility] 02/03/2025 08:30:20 5 Euflexxa Knee Injection Antonio completed Dylan Rasheed PA-C [address], [place], [address], [facility] 01/30/2025 08:40:07 5 Euflexxa Knee Injection Antonio completed Dylan Rasheed PA-C [address], [place], [address], [facility] 01/26/2025 12:52:07 5 Sports Knee 4&1 completed Dylan Rasheed PA-C [address], [place], [address], [facility] 11/18/2024 12:45:37 Imaging Results None recorded. Procedure Notes None recorded. Medical Equipment None Reported. Allergies Allergen ID Allergen Name Allergen Category Reaction Reaction Severity Criticality Documentation Date Start Date Code Code System Note Provider Name and Address Organization Details Recorded Time 731953 Ambien medicatio n Not available Not available Not available 11/18/2024 54055 5 RxNorm Maria [facility] 5 11:18:09 78850 shrimp allergeni c extract food Not available Not available Not available 11/25/20232017 79378 2 RxNorm Aller gyRea ction : 'Naus ea/Vo mitin g/Judi rrhea '; Not Available [facility] 4 14:22:55 Medications Name Sig Start Date Stop Date Status Note LastModified by Organization Details LastModified Time compounded medication Apply 1-3 grams(pum ps) to the affected area 3-4 times daily 2024 active Not Available Not Available Not Avai lable compounded medication Apply 1-3 grams(pum ps) to the affected area 3-4 times daily 01/21 completed Not Available Not Available Not Available cyclobenzap rine 10 mg tablet active Not [...] and Address Organization Details Last Updated DateTime 02/03/2025 167.64 cm 30.7 kg/m2 62063.55 g Genesis Wilcox [place] - [facility] 02/03/2025 08:42:13 Social History None recorded. Functional Status None recorded. Mental Status None recorded. Family History Nothing Reported. Medical History Condition Response Sleep Apnea Y Gynecological HistoryNo gynecological history recorded. Obstetrics History GPAL:G 0 P 0 0 0 0 Past Encounters Encounter ID Performer Location Encounter Start Date Encounter Closed Date Diagnosis/Indication Diagnosis SNOMED-CT Code Diagnosis ICD10 Code Diagnosis Note [id number] [facility] [address] [place] [address] 01/21/2025 09:13:06 01/26/2025 12:52:37 Tear of medial meniscus of left knee joint 8897228631 7104 S83.242S Tear of me dial meniscus of right knee joint 7369922333 7102 S83.241S Primary go narthrosis, bilateral 676777235 M17.0 [id number] [facility] [place] [address] [place] [address] 01/29/2025 09:18:51 01/30/2025 08:40:51 Primary gonarthrosis, bilateral 721170073 M17.0 [id number] [facility] [place] [address] [place] [address] 02/03/2025 08:21:02 02/03/2025 08:54:19 Primary gonarthrosis, bilateral 426552062 M17.0 Health Concerns Section Related Observation LastModified by Organization Detai ls LastModified Time None Recorded Concern Status LastModified by Organization Details LastModified Time None Recorded Payers Encounter Date Sequence Insurance Name Policy Number Policy Ross Covered Member ID Ross Member ID Guarantor Name 02/03/2025 1 [facility] - DOS ON OR AFTER 2022 - ONE CARE (MEDICARE REPLACEMENT/AD VANTAGE - HMO) Scott Miner [id number] Scott Miner Notes Date Note Type Note Provider Name and Address Organization Details Recorded Time 02/03/2025 text/html I am seeing the patient today under the supervision of Dr. Sinha who was available but who did not see the patient. Reason For VisitPatient is here today for Euflexxa injections # 3 of bilateral knee(s). Patient reports no adverse reaction from previous injections. Physical FindingsEvaluation of the knees reveal no evidence of infection, no significant joint effusion, no warmth, or erythema. The injection sites are benign. Calves are supple and nontender. 5/5 strength. Some discomfort with range of motion. Assessment? Osteoarthritis of knee -bilateral knees PlanAfter meticulous sterile preparation, both knees were injected with # 3 Euflexxa 20MG. Post-injection precautions were reviewed. I recommend ice, restriction of activities and re-evaluation next week for follow up injection. Dylan Rasheed PA-C [address] [facility] [address], [place], [address], [facility] 02/03/2025 08:54:18 OBGyn Episode No OBEpisode recorded.
--- OUTSIDE RECORDS SUMMARY | 2025-02-03 12:29 | XMS_ITS | Encounter Summary ---
Author Organization [employer] Address [address] [facility] [address] [place] [address] Care Team Providers Care Gis Mapping Technician Name Role Phone Key Rodríguez MD Primary Care Provider [phone] Reason for Visit * Reason Comments Med Refill Encounter Details Date Type Department Care Team ([facility] Contact Info) Description 02/05/2023 Refill [facility] [address] [place] [address] Key Rodríguez MD [address] [place] [address] Social History Tobacco Use Types Packs/Day Years [...] documented as of this encounter Care Teams Gis Mapping Technician Relationship Specialty Start Date End Date Key Rodríguez MD [address] [place] [address] PCP - General Family Medicine 09/23/18 documented as of this encounter
--- OUTSIDE RECORDS SUMMARY | 2025-02-03 12:29 | XMS_ITS | Encounter Summary ---
Author Organization [employer] Address [address] [facility] [address] [place] [address] Care Team Providers Care Laboratory Technician Name Role Phone Key Rodríguez MD Primary Care Provider [phone] Encounter Details Date Type Department Care Team (Late st Contact Info) Description 02/05/2024 Telephone [facility] ADULT DENTAL [address] [place] [address] Jason Duran, DMD [address] [place] [address] Social History Tobacco Use Types Packs/Day Years [...] Patient insurance could not pay for tuff [employer] insurance says if u send the regular kind not the generic [facility] will pay for it Feb 12 2024 at 306 pm pharmacy called they like you to send another scrupt with name brand tooth paste so the insurance will pay documented in this encounter Plan of Treatment Not on file documented as of this encounter Visit Diagnoses Not on filedocumented in this encounter Additional Health Concerns Assessment Noted Time PHQ-9 Depression Total Score: 3 12/02/19 24 11:23 AM EDT documented as of this encounter Care Teams Laboratory Technician Relationship Specialty Start Date End Date Key Rodríguez MD [address] [place] [id number] PCP - General Family Medicine 09/23/18 documented as of this encounter
--- OUTSIDE RECORDS SUMMARY | 2025-02-03 12:29 | XMS_ITS | Encounter Summary ---
Author Organization [employer] Address [address] [facility] [address] [place] [address] Care Team Providers Care Type Rolling Machine Operator Name Role Phone Key Rodríguez MD Primary Care Provider [phone] Encounter Details Date Type Department Care Team (Latest Contact Info) Description 11/29/2020 Abstract [facility] CONVERSIONS Dental, Provider, DDS Social History [...] on filedocumented in this encounter Care Teams Type Rolling Machine Operator Relationship Specialty Start Date End Date Key Rodríguez MD [address] [facility] [place] [address] PCP - General Family Medicine 09/23/18 documented as of this encounter
--- OUTSIDE RECORDS SUMMARY | 2025-02-03 12:29 | XMS_ITS | Encounter Summary ---
Author Organization [employer] Address [address] [facility] [address]t [place] [address] Care Team Providers Care Child Welfare Director Name Role Phone Key Rodríguez MD Primary Care Provider [phone] Reason for Visit * Reason Onset Date Comments Med Refill 12/02/2023 Encounter Details Date Type Department Care Team (Late st Contact Info) Description 12/02/2023 Telephone [facility] MEDICINE [address] [place] [address] Key Rodríguez MD [address] [place] [address] Med Refill Social History Tobacco Use Types [...] AM EDT documented as of this encounter Functional Status * Over the past 2 weeks, how often have you been bothered by any of the following problems? Question Answer Date of Assessment Author Patient Health Questionnaire -2 Score 1 12/02/2023 11:23 AM Migue Meza [place] * If you checked off any problems on this questionnaire so far, Question Answer Date of Assessment Author How difficult have these problems made it for you to do your work, take care of things at home, or get along with other people? Somewhat difficult 12/02/2023 11:23 AM Migue Meza [place] * Over the past 2 weeks, how often have you been bothered by any of the following problems? Question Answer Date of Assessment Author Little interest or pleasure in doing things Not at all 12/02/2023 11:23 AM Migue Meza [place] Feeling down, depressed, or hopeless Several days 12/02/2023 11:23 AM Migue Meza [place] Trouble falling or staying asleep, or sleeping too much Not at all 12/02/2023 11:23 AM Ayanna Meza [place] Feeling tired or having little energy Several days 12/02/2023 11:23 AM Migue Meza [place] Poor appetite or overeating Several days 12/02/2023 11 :23 AM Ayanna Meza [place] Feeling bad about yourself - or that you are a failure or have let yourself or your family down Not at all 12/02/2023 11:23 AM Migue Meza [place] Trouble concentrating on things, such as reading the newspaper or watching television Not at all 12/02/2023 11:23 AM Migue Meza [place] Moving or speaking so slowly that other people could have noticed? Or the opposite - being so fidgety or restless that you have been moving around a lot more than usual. Not at all 12/02/2023 11:23 AM Migue Meza MA Thoughts that you would be better off or hurting yourself in some way Not at all 12/02/2023 11:23 AM Danielle Meza MA Patient Health Questionnaire-9 Score 3 12/02/2023 11:23 AM EDT Amalia Long MA documented as of this encounter Miscellaneous Notes * Telephone Encounter - Kathy Thompson - 12/02/2023 1:02 PM EDT Tc from [...] documented as of this encounter Care Teams Child Welfare Director Relationship Specialty Start Date End Date Key Rodríguez MD [address] [place] [address] PCP - General Family Medicine 09/23/18 documented as of this encounter
--- OUTSIDE RECORDS SUMMARY | 2025-02-03 12:29 | XMS_ITS | Encounter Summary ---
Author Organization [employer] Address [address] [facility] [address] [place] [address] Care Team Providers Care Molecular Genetic Pathologist Name Role Phone Key Rodríguez MD Primary Care Provider [phone] Encounter Details Date Type Department Care Team (Late st Contact Info) Description 04/08/2023 Orders Only [facility] MEDICINE [address] [place] [id number] Anika Messina LPN Social History Tobacco Use [...] documented as of this encounter Care Teams Molecular Genetic Pathologist Relationship Specialty Start Date End Date Key Rodríguez MD [address] [facility] [place] [address] PCP - General Family Medicine 09/23/18 documented as of this encounter
--- OUTSIDE RECORDS SUMMARY | 2025-02-03 12:29 | XMS_ITS | Encounter Summary ---
Author Organization [employer] Address [address] [facility] 7t [place] [address] Care Team Providers Care Display Department Manager Name Role Phone Key Rodríguez MD Primary Care Provider [phone] Reason for Visit * Reason Comments Follow-up mood Encounter Details Date Type Department Care Team ([facility] Contact Info) Description 02/03/2025 11:00 AM EDT Office Visit [facility] MED [facility] PEDS [address] [place] [address] Key Rodríguez MD [address] [place] [address] Bilateral chronic knee pain (Primary Dx); Bipolar disorder, in partial remission, most recent episode mixed (CMS/HCC); Moderate persistent asthma in adult without complication; ETOH abuse Social History Tobacco Use Types Packs/Day Years [...] AM EDT documented as of this encounter Last Filed Vital Signs Vital Sign Reading [...] Mass Index 33.78 02/03/2025 11:10 AM EDT documented in this encounter Progress Notes * Key Rodríguez MD - 02/03/2025 11:00 AM EDT Subjective Patient ID: Scott Miner is a 49 y.o. female who presents for Follow-up (mood). cSott is a 49 y/o female patient of mine here for follow up and because she needs a Raised toilet seat and a grab bar as her knees are getting worse. She is seeing Ortho and has been getting kneeinjections, her last one was this morning. She is having more more trouble walking. She works as a [employer]. She just had any MRI which showed some meniscus damage. I do not have the MRI report but this is what the patient just relayed to me today. She also saw neurology recently and is scheduled for a repeat sleep study on February 17 due to diagnosis of ROEL and in need of a new machine and supplies. She is doing okay on naltrexone for alcohol abuse. She is not interested in IM naltrexone at this time and is the reason why she missed her appointment with Dr. Srivastava. Review of Systems Constitutional: Negative for activity change, chills, fever and unexpected weight change. Respiratory: Negative for cough, shortness of breath and wheezing. Cardiovascular: Negative for chest pain, palpitations and leg swelling. Gastrointestinal: Negative for abdominal pain and blood in stool. Endocrine: Negative for polydipsia and polyuria. Genitourinary: Negative for decreased urine volume, difficulty urinating, dysuria and hematuria. Musculoskeletal: Positive for arthralgias. Negative for gait problem. Skin: Negative for color change and rash. Neurological: Negative for dizziness and headaches. Hematological: Negative for adenopathy. Psychiatric/Behavioral: Negative for dysphoric mood, hallucinations, sleep disturbance and suicidalideas. The patient is not nervous/anxious. Objective BP 118/71 (BP Location: Right arm, Patient Position: Sitting, BP Cuff Size: Large adult) Pulse 79 Temp 98.1 ??F (36.7 ??C) (Oral) Resp 14 Ht 5' 5 (1.651 m) Wt 203 lb (92.1 kg) SpO2 98% BMI 33.78 kg/m?? Physical Exam Vitals reviewed. Constitutional: General: She is not in acute distress. Appearance: Normal appearance. She is obese. She is not ill-appearing. HENT: Head: Normocephalic. Right Ear: Tympanic membrane and ear canal normal. Left Ear: Tympanic membrane and ear canal normal. Nose: Nose normal. Mouth/Throat: Mouth: Mucous membranes are moist. Pharynx: No oropharyngeal exudate or posterior oropharyngeal erythema. Eyes: Extraocular Movements: Extraocular movements intact. Conjunctiva/sclera: Conjunctivae normal. Pupils: Pupils are equal, round, and reactive to light. Cardiovascular: Rate and Rhythm: Normal rate and regular rhythm. Pulses: Normal pulses. Heart sounds: Normal heart sounds. Pulmonary: Effort: Pulmonary effort is normal. No respiratory distress. Breath sounds: Normal breath sounds. Abdominal: Palpations: Abdomen is soft. Musculoskeletal: General: Normal range of motion. Cervical back: Normal range of motion. Skin: General: Skin is warm. Capillary Refill: Capillary refill takes less than 2 seconds. Neurological: General: No focal deficit present. Mental Status: She is alert and oriented to person, place, and time. Psychiatric: Mood and Affect: Mood normal. Behavior: Behavior normal. Thought Content: Thought content normal. Judgment: Judgment normal. Assessment/Plan Diagnoses and all orders for this visit: Bilateral chronic knee pain Comments: Follow-up with Ortho as planned. Will request MRI of knee result. 20 tablets of Tylenol 3 prescribed for as needed severe pain. Orders: - acetaminophen-codeine (Tylenol w/ Codeine #3) 300-30 MG tablet; Take 1 tablet by mouth every 6 (six) hours if needed for severe pain for up to 5 days. Bipolar disorder, in partial remission, most recent episode mixed (CMS/HCC) Comments: Patient seems happy and states feels her mood is controlled. Sees her therapist on a regular basis now and it has been helpful. Orders: - Ventolin HFA 108 (90 Base) MCG/ACT inhaler; INHALE TWO puffs FOUR TIMES DAILY NEEDED Moderate persistent asthma in adult without complication Comments: Stable on current meds/inhalers. refilled meds due. Orders: - Ventolin HFA 108 (90 Base) MCG/ACT inhaler; INHALE TWO puffs FOUR TIMES DAILY NEEDED ETOH abuse Comments: Doing well on oral naltrexone only. Labs up-to-date. Congratulated. documented in this encounter Plan of Treatment Not on file documented as of this encounter Visit Diagnoses Diagnosis Bilateral chronic knee pain- Primary Bipolar disorder, in partial remission, most recent episode mixed (CMS/HCC) Moderate persistent asthma in adult without complication ETOH abuse Nondependent alcohol abuse, unspecified drinking behavior documented in this encounter Additional Health Concerns Assessment Noted Time PHQ-9 Depression Total Score: 9 03/03/20 24 3:00 PM EDT documented as of this encounter Care Teams Display Department Manager Relationship Specialty Start Date End Date Key Rodríguez MD [address] [place] [id number] PCP - General Family Medicine 09/23/18 documented as of this encounter
--- OUTSIDE RECORDS SUMMARY | 2025-02-03 12:29 | XMS_ITS | Encounter Summary ---
Author Organization [employer] Address [address] [facility] [address] [place] [address] Care Team Providers Care Obstetrician/Gynecologist Name Role Phone Key Rodríguez MD Primary Care Provider Reason for Visit * Reason Comments Med Refill Encounter Details Date Type Department Care Team ([facility] Contact Info) Description 02/19/2023 Refill [facility] MED [facility]EDS [address] [place] [address] Key Rodríguez MD [address] [place] [address] Social History Tobacco Use Types Packs/Day Years [...] Noted Time PHQ-9 Depression Total Score: 13 02/11/ 023 3:00 PM EDT documented as of this encounter Care Teams Obstetrician/Gynecologist Relationship Specialty Start Date End Date Key Rodríguez MD [address] [place] [id number] PCP - General Family Medicine 09/23/18 documented as of this encounter
--- OUTSIDE RECORDS SUMMARY | 2025-02-03 12:29 | XMS_ITS | Data Portability ---
Author Organization [facility], [facility] Address [address] [place] [address] Care Team Providers Care Senior Ios Software Engineer Name Role Phone SHANTE KIMBALL Primary Care Provider Assessment No assessment recorded. Plan of Treatment Reminders Order Date Submit Date Provider Last Modified By Organization Details Last Modified Time Details Appointments INJECTION ONLY 15 2024 08:45A M Dylan Rasheed PA-C Not available Not available Not available Lab None recorded. Referral physical therapist referral - General non-impac t strengthe tonya and flexibili ty program with proprioce ptive training. 2024 025 anjali Lace[facility] - [place] [facility] , [address] [facility] , [facility], [place], [address], 11/18/2024 12:48:21 Procedures None recorded. Surgeries None recorded. Imaging MRI, knee, w/o contrast - L knee mri without contrast ?ing MMT 2024 025 [facility] ([facility] [address], [place], [address], 01/26/2025 08:25:37 MRI, knee, w/o contrast - R knee mri without contrast ?ing MMT 2024 025 [facility] ([facility]), [address], [place], [address], 01/25/2025 16:56:50 XR, knee, 4 or more view - room 214, bilateral knee 4v 2024 025 [email or web address] [facility] Office, [address], [address], [place], [address], 11/18/2024 12:48:21 Medication Orders None recorded. Patient TargetsNo targets recorded. Patient InstructionsNo instructions recorded. Reason for Referral Physical Therapist Referral for Primary gonarthrosis, bilateral General non-impact strengthening and flexibility program with proprioceptive training. Referring Physician: Dylan Rasheed, Orthopedic Surgery, Encounter Date: 11/18/2024 Results Created Date Observation Date Name Description Value Unit Range Abnormal Flag Note LastModifiedBy Organization Detail LastModifiedTime 11/18/1911/18/2024 XR, knee, 4 or more view [email or web address] ?Encry pted=s hAaTro YD8dLq bEUv6g %2BXZw aYqtaq 0bqfl% 2Fg9IQ a4ajBk vP9nXo QUaueC m3YtLR FvZlgJ JJ8mAn HZtai3 5c5954 AC0Kqb XmBU6K mKiQtr MwF INTERFACE [facility] [address], [place], [address], 11/18/2024 11:26:57 11/18/19 25 11/18/2024 XR, knee, 4 or more view [email or web address] ?Encry pted=s hAaTro YD8dLq bEUv6g %2BXZw aYqtaq 0bqfl% 2Fg9IQ a4ajBk vP9nXo QUaueC m3YtLR FvZl JJ8mAn tai3 0q7094 AC0Kqb XmBU6K mKiQtr MwF INTERFACE [facility] [address], [place], [address], 11/18/2024 11:26:59 01/26/20 25 01/24/2025 MRI, knee, w/o contr ast [facility] Access ion Number : [id number] Patien t Name: Andressa Reese Record Number : [id number] Date of : 1975 Date of Exam: 2024 Referr ing Physic lorie: [facility]) [address], [address] [facility] [place] [address] Exam: MR Knee (C-) CPT 17075 - Right Room Descri ption: [place] [facility] Pion 3T MR Knee (C-) CPT 25702 CLINIC AL INDICA TION: Reason For Exam: [...] ly Signed By: Jamie Munguia rd, MD [facility] ([facility]) [address], [place], [address], 01/26/2025 13:05:01 01/27/20 25 01/24/2025 MRI, knee, w/o contr ast [facility] Access ion Number : [id number] Patien t Name: Andressa Reese fabienne Lubaa bryson Record Number : [id number] Date of : 1975 Date of Exam: 2024 Referr ing Physic lorie: Dylan [facility] ([facility]) [address], [address] [place] [address] Exam: MR Knee (C-) CPT 42541 - Left Room Descri ption: [facility] Pion 3T MR Knee (C-) CPT 44793 CLINIC AL INDICA TION: Left knee pain [...] ng Electr onical ly Signed By: Jamie Munguia rd, MD [facility] ([facility]) [address], [place], [address], 01/26/2025 13:05:00 Result Notes None recorded. Problems Name Problem SNOMED Code Status Onset Date Resolution Date Notes Provider Name and Address Organization Details Recorded Time Primary gonarthrosi s, bilateral 873908612 Active 025 Dylan Rasheed PA-C [address] [facility], [place], [address], [facility] 5 12:52:14 Problem Notes None recorded. Procedures Surgical History Date Name Laterality Status Provider Name and Address Organization Details Recorded Time 5 Euflexxa Knee Injection [place] completed Dylan Rasheed PA-C [address], [place], [address], [facility] 02/03/2025 08:30:20 5 Euflexxa Knee Injection [place] completed Dylan Rasheed PA-C [address], [place], [address], [facility] 01/30/2025 08:40:07 5 Euflexxa Knee Injection [place] completed Dylan Rasheed PA-C [address], [place], [address], [facility] 01/26/2025 12:52:07 5 Sports Knee 4&1 completed Dylan Rasheed PA-C [address], [place], [address], [facility] 11/18/2024 12:45:37 Imaging Results Imaging Date Name Status LastModified by Organiz ation Details LastModified Time 11/18/2024 XR, knee, 4 or more view completed [facility] [address], [place], [address], 11/18/2024 11:26:57 11/18/2024 XR, knee, 4 or more view completed [facility] [address], [place], [address], 11/18/2024 11:26:59 01/24/2025 MRI, knee, w/o contrast completed [facility] ([facility]) [address], [place], [address], 01/26/2025 13:05:01 01/24/2025 MRI, knee, w/o contrast completed [facility] ([facility]) [address], [place], [address], 01/26/2025 13:05:00 Procedure Notes None recorded. Medical Equipment None Reported. Allergies Allergen ID Allergen Name Allergen Category Reaction Reaction Severity Criticality Documentation Date Start Date Code Code System Note Provider Name and Address Organization Details Recorded Time 370884 Ambien medicatio n Not available Not available Not available 11/18/2024 17889 5 RxNorm Maria A sheridan [place] [facility] 11:18:09 33503 shrimp allergeni c extract food Not available Not available Not available 11/25/20232017 86144 2 RxNorm Aller gyRea ction : 'Naus ea/Vo mitin g/Jdui rrhea '; Not Available [employer] 14:22:55 Medications Name Sig Start Date Stop [...] and Address Organization Details Last Updated DateTime 11/18/2024 167.64 cm 30.7 kg/m2 31668.55 g Maria A Mccrary [facility] 11/18/2024 11:17:35 Date Recorded Body height Body mass index (BMI) Body weight Provider Name and Address Organization Details Last Updated DateTime 01/21/2025 167.64 cm 30.7 kg/m2 98234.55 g JENNIE BLOODEIRO [facility] 01/21/2025 09:23:23 Date Recorded Body height Body mass index (BMI) Body weight Provider Name and Address Organization Details Last Updated DateTime 01/29/2025 167.64 cm 30.7 kg/m2 08274.55 g DAISY BARTON [facility] 01/29/2025 09:35:32 Date Recorded Body height Body mass index (BMI) Body weight Provider Name and Address Organization Details Last Updated DateTime 02/03/2025 167.64 cm 30.7 kg/m2 69675.55 g Genesis Wilcox [facility] 02/03/2025 08:42:13 Social History None recorded. Functional Status None recorded. Mental Status None recorded. Family History Nothing Reported. Medical History Condition Response Sleep Apnea Y Gynecological HistoryNo gynecological history recorded. Obstetrics History GPAL:G 0 P 0 0 0 0 Past Encounters Encounter ID Performer Location Encounter Start Date Encounter Closed Date Diagnosis/Indication Diagnosis SNOMED-CT Code Diagnosis ICD10 Code Diagnosis Note [id number] L[facility] [address] [place] [place] [address] 11/18/2024 11:04:49 12/07/2024 15:47:59 Pain of knee region 7364592575 M25.561 M25.562 G89.29 Primary go narthrosis, bilateral 757463903 M17.0 [id number] [facility] [place] [address] [place] [address] 01/21/2025 09:13:06 01/26/2025 12:52:37 Tear of medial meniscus of left knee joint 6492105241 7104 S83.242S Tear of me dial meniscus of right knee joint 5658824437 7102 S83.241S Primary go narthrosis, bilateral 799196443 M17.0 [id number] [facility] [place] [address] [place] [address] 01/29/2025 09:18:51 01/30/2025 08:40:51 Primary gonarthrosis, bilateral 375588953 M17.0 [id number] LYN[facility] [address] [place] [address] 02/03/2025 08:21:02 02/03/2025 08:54:19 Primary gonarthrosis, bilateral 819393482 M17.0 Health Concerns Section Related Observation LastModified by Organization Detai ls LastModified Time None Recorded Concern Status LastModified by Organization Details LastModified Time None Recorded Advance Directives Directive None Recorded Payers Encounter Date Sequence Insurance Name Policy Number Policy Ross Covered Member ID Ross Member ID Guarantor Name 11/18/2024 1 [facility] - DOS ON OR AFTER 2022 - ONE CARE (MEDICARE REPLACEMENT/AD VANTAGE - HMO) Scott Miner [id number] Scott Miner 01/21/2025 1 [facility] - DOS ON OR AFTER 2022 - ONE CARE (MEDICARE REPLACEMENT/AD VANTAGE - HMO) Scott Miner [id number] Scott Miner 01/29/2025 1 [facility] - DOS ON OR AFTER 2022 - ONE CARE (MEDICARE REPLACEMENT/AD VANTAGE - HMO) Scott Miner [id number] Scott Miner 02/03/2025 1 [facility] - DOS ON OR AFTER 2022 - ONE CARE (MEDICARE REPLACEMENT/AD VANTAGE - HMO) Scott Miner [id number] Scott Miner Notes Date Note Type Note Provider Name and Address Organization Details Recorded Time 11/18/2024 text/html I am seeing the patient today under the supervision of Dr. Sinha who was available but who did not see the patient. HPI: This patient is a 48-year-old female with a known history of bilateral knee arthritis. She has not been seen in approximately 1 year. About a year ago she had cortisone followed by GelSyn injection for both knees with excellent long-lasting benefit. Here today requesting repeat cortisone and authorization for gel. She is also requesting a new prescription for physical therapy as that has been helpful in the past and she would like to maximize her benefit. Patient also has had hinged knee braces for her arthritis and wears these on a daily basis. These are now quite old and worn and she is requesting updated knee braces Past family, medical, social history and review of systems has been reviewed, updated and signed by me and is located in the patient's chart. Examination: Both knees with varus alignment consistent with medial compartment osteoarthritis. No erythema, redness or warmth. No joint effusion. Both lower extremities are neurovascular intact. Radiographic exam: 4 views of both knees were once again obtained in the office today. There are arthritic changes noted especially about the medial compartment of both knees. Joint spaces diminished by about 50% medial compartment. Well-preserved laterally. Advanced arthritis findings of the patellofemoral joint worse on the right than left. Impression: Bilateral knee osteoarthritis advanced Plan: Treatment options once again discussed with the patient. We discussed possible need for knee arthroplasty in the future. At this time she is not interested in that. She was offered cortisone injection today which was performed. Patient tolerated procedure well. We will seek authorization for viscosupplementation. Recheck for that. Dylan Rasheed PA-C [address], [place], [address], [facility] 11/18/2024 12:48:12 01/21/2025 text/html I am seeing the patient today under the supervision of Dr. Zepeda who was available but who did not see the patient. Reason For VisitPatient is here today for Euflexxa injections # 1 of Bilateral knee(s). Patient reports no adverse reaction from previous injections. She is having increased disability with activities. She reports having a new job which increases her standing and walking. She feels that there may be something new going on in the knee and is requesting MRI imaging of both knees. Physical FindingsEvaluation of the knees reveal no evidence of infection, no significant joint effusion, no warmth, or erythema. The injection sites are benign. Calves are supple and nontender. 5/5 strength. Some discomfort with range of motion. Assessment? Osteoarthritis of knee -bilateral knees PlanAfter meticulous sterile preparation, both knees were injected with # 1 Euflexxa 20MG. Post-injection precautions were reviewed. I recommend ice, restriction of activities and re-evaluation next week for follow up injection. Patient will follow-up next week for second injection. We will obtain MRI imaging of both knees to assess for intra-articular pathology possibly amenable to surgical management such as meniscus tearing. MRI of both knees ordered and medically indicated. Dylan Rasheed PA-C [address] [facility] [address], [place], [address], [facility] 01/26/2025 12:52:35 01/29/2025 text/html I am seeing the patient [...] follow up injection. Dylan Rasheed PA-C [address], [place], [address], [facility] 01/30/2025 08:40:50 02/03/2025 text/html I am seeing the patient [...] up injection. Dylan Rasheed PA-C [address], [place], [address], [facility] 02/03/2025 08:54:18 OBGyn Episode No OBEpisode recorded.
--- OUTSIDE RECORDS SUMMARY | 2025-02-03 12:29 | XMS_ITS | Encounter Summary ---
Author Organization [employer] Address [address] [address] [place] [address] Care Team Providers Care District Supervisor Name Role Phone Key Rdoríguez MD Primary Care Provider [phone] Reason for Visit * Reason Onset Date Comments Appointment 11/06/2023 [facility] Encounter Details Date Type Department Care Team (Late st Contact Info) Description 10/29/2023 Refill [facility] MED[facility]INE [address] [place] [address] Adarsh Booth FNP Bipolar affective disorder, remission status unspecified ([facility]) Social History Tobacco Use Types Packs/Day Years [...] regarding to re-schedule her apt as tele-visit -RV. Pt agrees to schedule for 12/02/23. Pt is not active with any other Psych prescriber & still interested in seeing FIG BAR MACHINE OPERATOR-Adarsh Booth. documented in this encounter Plan of Treatment Not on file documented as of this encounter Visit Diagnoses Diagnosis Bipolar affective disorder, remission status unspecified ([facility]) documented in this encounter Additional Health Concerns Assessment Noted Time PHQ-9 Depression Total Score: 4 08/12/20 23 1:51 PM EST documented as of this encounter Care Teams District Supervisor Relationship Specialty Start Date End Date Key Rodríguez MD [address] [place] [address] PCP - General Family Medicine 09/23/18 documented as of this encounter
--- OUTSIDE RECORDS SUMMARY | 2025-02-03 12:29 | XMS_ITS | Encounter Summary ---
Author Organization [employer] Address [address] [facility] 7t [place] [address] Care Team Providers Care Seismograph Helper Name Role Phone Key Rodríguez MD Primary Care Provider [phone] Reason for Visit * Reason Onset Date Comments Durable Medical Equipment 11/05/2024 Encounter Details Date Type Department Care Team ([facility] st Contact Info) Description 11/05/2024 Telephone [facility] MEDICINE [address] [place] [address] Key Rodríguez MD [address] [place] [address] Durable Medical Equipment Social History Tobacco Use [...] ines. Pt is requesting a call back [phone] * Telephone Encounter - Vijay Barriga - 11/05/2024 10:41 AM EST Tc from pt requesting compression socks to be sent to ines. Pt is requesting a call back [phone] documented in this encounter Plan of Treatment Not on file documented as of this encounter Visit Diagnoses Not on filedocumented in this encounter Additional Health Concerns Assessment Noted Time PHQ-9 Depression Total Score: 9 03/03/20 24 3:00 PM EDT documented as of this encounter Care Teams Seismograph Helper Relationship Specialty Start Date End Date Key Rodríguez MD [address] [place] [address] PCP - General Family Medicine 09/23/18 documented as of this encounter
--- OUTSIDE RECORDS SUMMARY | 2025-02-03 12:29 | XMS_ITS | Encounter Summary ---
Author Organization [employer] Address [address] [facility] 7t [place] [address] Care Team Providers Care Corporate Vp Advertising & Online Name Role Phone Key Rodríguez MD Primary Care Provider [phone] Reason for Visit * Reason Onset Date Comments Covid-19 Testing 10/01/2023 Patient 2 of 2 Encounter Details Date Type Department Care Team (Late st Contact Info) Description 10/01/[address] [facility] [address] [place] [address] Key Rodríguez MD [address] [place], [place] [id number] Covid-19 Testing (Patient 2 of 2) Social [...] the rapid home covid tests available at [facility] because her son got a false negative result on that test the same day he later tested positive for covid at our [facility] office. Patient's son scheduled for f/u with [...] coming into the office. Routing back to [facility] nurses to evaluate priority for SDC appointment [...] documented as of this encounter Care Teams Corporate Vp Advertising & Online Relationship Specialty Start Date End Date Key Rodríguez MD [address] [place] [phone] PCP - General Family Medicine 09/23/18 documented as of this encounter
--- OUTSIDE RECORDS SUMMARY | 2025-02-03 12:29 | XMS_ITS | Encounter Summary ---
Author Organization [employer] Address [address] [facility] 7t [place] [address] Care Team Providers Care Office Receptionist Name Role Phone Key Rodríguez MD Primary Care Provider [phone] Encounter Details Date Type Department Care Team (Latest Contact Info) Description 02/03/2025 Travel Social History Tobacco Use Types Packs/Day Years [...] documented as of this encounter Care Teams Office Receptionist Relationship Specialty Start Date End Date Key Rodríguez MD [address] [facility] [place] PCP - General Family Medicine 09/23/18 documented as of this encounter
[2025-02-03 15:48] LABS: Ferritin 21 ng/mL (10-250)
== END 2025-02-03 11:35 | disposition home or self-care (01) ==
LOC: HO.CHCLDS 11:34
PROVIDERS: Visit Provider Physician Assistant Medical
DX: D50.0 Iron deficiency anemia secondary to blood loss (chronic) (principal); G25.81 Restless legs syndrome
CPT/HCPCS: 36415; 82728

== ENCOUNTER → 2025-02-17 20:30 | Outpatient (REF) | payer OTHER, SELFPAY ==
--- OUTSIDE RECORDS SUMMARY | 2025-02-17 22:23 | XMS_ITS | Encounter Summary ---
Author Organization [employer] Address [address] [facility] 7 [place] [address] Care Team Providers Care Freelance Programmer/App Developer Name Role Phone Key Rodríguez MD Primary Care Provider [phone] Reason for Visit * Reason Onset Date Comments Durable Medical Equipment 11/05/2024 Encounter Details Date Type Department Care Team ([facility] st Contact Info) Description 11/05/2024 Telephone [facility] MEDICINE [address] [place] [address] Key Rodríguez MD [address] [place] [address] Durable Medical Equipment Social History Tobacco Use [...] ines. Pt is requesting a call back [phone] * Telephone Encounter - Vijay Barriga - 11/05/2024 10:41 AM EST Tc from pt requesting compression socks to be sent to ines. Pt is requesting a call back [phone] documented in this encounter Plan of Treatment Upcoming Encounters Date Type Department Care Team ([facility] st Contact Info) Description 05/12/2025 9:15 AM EDT Office Visit [facility] [address] [place] [address] Key Rodríguez MD [address] [place] [address] documented as of this encounter Visit Diagnoses Not on filedocumented in this encounter Additional Health Concerns Assessment Noted Time PHQ-9 Depression Total Score: 9 03/03/20 24 3:00 PM EDT documented as of this encounter Care Teams Freelance Programmer/App Developer Relationship Specialty Start Date End Date Key Rodríguez MD [address] [place] [address] PCP - General Family Medicine 09/23/18 documented as of this encounter
== END ==
LOC: HO.SL 20:30
PROVIDERS: PCP Pediatrics; Visit Provider Psychiatry & Neurology Neurology
DX: G47.33 Obstructive sleep apnea (adult) (pediatric) (principal); G25.81 Restless legs syndrome
CPT/HCPCS: 95810

== ENCOUNTER → 2025-02-17 21:15 | Outpatient (BNV) | payer OTHER, SELFPAY | PROVIDERS: PCP Pediatrics; Visit Provider Psychiatry & Neurology Neurology | DX: G47.33 Obstructive sleep apnea (adult) (pediatric) (principal) | CPT/HCPCS: 95810 ==

== ENCOUNTER 2025-03-10 09:00 | Outpatient (RCR) | payer OTHER, SELFPAY ==
--- NOTE | 2025-03-03 12:04 | MHC.PT.EP ---
[facility] [place] Office [place] Office [place] Office [address] [phone] F: [phone] F: [phone] F: [phone] F: [phone] Physical Therapy Plan of Care Date of Evaluation: 03/03/25 Date of Surgery: Diagnosis: bilateral knee pain Assessment: Patient is a 49 year old R handed female who presents with s/s consistent with bilateral knee pain. 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 Patient past medical history includes asthma, bipolar disorder, anxiety, and depression. Current impairments include pain, balance, flexibility, ROM, strength, activity tolerance and functional mobility. Functional limitations include decreased ability to walk, stand, transfer, be active, work and negotiate stairs. Patient is motivated with good rehab potential. Skilled PT will address impairments and functional limitations in order to achieve goals. Frequency and Duration: The patient will be seen 2x/week for 5 weeks Short Term Goals: I with HEP -2 weeks AROM 0-120 b/l - 3 weeks Max pain with daily routine 8/10 - 3 weeks Laryngologist Goals: AROM 0-124 - 5 weeks LEFS 32/80 - 5 weeks Strength 4/5 grossly - 5 weeks Max pain with daily routine 5/10 - 5 weeks Treatment Plan: Modalities to reduce pain, spasms and effusion. Manual therapy to restore motion and function. Therapeutic exercise to improve strength and flexibility. Neuromuscular re-education for posture and balance. Therapeutic activities to return to functional activities of daily living. Electronically signed by: Shayan Baron, PT Please sign and return to therapist. Thank you for your referral.
--- NOTE | 2025-04-02 10:06 | MHC.PT.DC ---
[facility] [place] Office [place] Office [place] Office [address] [phone] F: [phone] F: [phone] F: [phone] F: [phone] Physical Therapy Discharge Report Diagnosis: bilateral knee pain Date of Surgery: Date of Evaluation: 03/03/25 Date of Discharge: Treatments to Date: 3 Cancellations to Date: No Shows to Date: Discharge Status: Independent with HEP Patient Elected to Stop Visit Non-compliance Discharge Summary: 03/10/25: pt progressing well with skilled PT. continue to progress as tolerated. compliant with HEP. 03/05/25: pt issued HEP of above program. pt limits at times and push to pain, holds breath which we discussed in depth today. Patient is a 49 year old R handed female who presents with s/s consistent with bilateral knee pain. 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 Patient past medical history includes asthma, bipolar disorder, anxiety, and depression. Current impairments include pain, balance, flexibility, ROM, strength, activity tolerance and functional mobility. Functional limitations include decreased ability to walk, stand, transfer, be active, work and negotiate stairs. Patient is motivated with good rehab potential. Skilled PT will address impairments and functional limitations in order to achieve goals. Electronically signed by: Shayan Baron, PT Please sign and return to therapist. Thank you for your referral.
== END 2025-04-02 10:07 | disposition home or self-care (01) ==
LOC: HO.PTCHIC 09:00
PROVIDERS: PCP Pediatrics; Visit Provider Physician Assistant Medical
DX: M54.32 Sciatica, left side (principal); M25.561 Pain in right knee; M25.562 Pain in left knee
CPT/HCPCS: 97110; 97162

== ENCOUNTER 2025-04-13 08:07 | Outpatient (AMB) | payer OTHER, SELFPAY ==
--- OUTSIDE RECORDS SUMMARY | 2025-04-13 08:11 | XMS_ITS | Data Portability ---
Author Organization [place] - [facility], [facility] Address [address] [place] [address] Care Team Providers Care Assistant Manager Of Operations Name Role Phone SHANTE KIMBALL Primary Care Provider Assessment No assessment recorded. Plan of Treatment Reminders Order Date Submit Date Provider Last Modified By Organization Details Last Modified Time Details Appointments None recorded. Lab None recorded. Referral physical therapist referral - General non-impact strengtheni ng and flexibility program with propriocept chey training. 2024 025 anjali L[facility] - [place] - [facility] , [address], [place], [address], 5 12:48:21 Procedures None recorded. Surgeries None recorded. Imaging MRI, knee, w/o contrast - L knee mri without contrast ?ing MMT 2024 025 [facility] ([facility]), [address] [place], [address], 5 08:25:37 MRI, knee, w/o contrast - R knee mri without contrast ?ing MMT 2024 025 [facility] ([facility] [address] [place], [address], 5 16:56:50 XR, knee, 4 or more view - room 214, bilateral knee 4v 2024 025 [facility], [address], [address], [place], [address], 12:48:21 Medication Orders None recorded. Patient TargetsNo [...] a4ajBk vP9nXo QUaueC m3YtLR FvZlgJ JJ8mAn HZtai3 4g7156 AC0Kqb XmBU6K mKiQtr MwF INTERFACE [facility] [address] [facility] [address], [place], [address], 11/18/2024 11:26:57 11/18/19 25 11/18/2024 XR, knee, 4 or more view http:/ [email or web address] ?Encry pted=s hAaTro YD8dLq bEUv6g %2BXZw aYqtaq 0bqfl% 2Fg9IQ a4ajBk vP9nXo QUaueC m3YtLR FvZlgJ JJ8mAn HZtai3 2j2749 AC0Kqb XmBU6K mKiQtr MwF INTERFACE [facility] [address], [place], [address], 11/18/2024 11:26:59 01/26/20 25 01/24/2025 MRI, knee, w/o contr ast [facility] Access ion Number : [id number] Patien t Name: Andressa Reese Record Number : [id number] Date of : 1975 Date of Exam: 2024 Referr ing Physic lorie: [facility] [address], [address] [place] [address] Exam: MR Knee (C-) CPT 36113 - Right Room Descri ption: [place] GE Pion 3T MR Knee (C-) CPT 30413 CLINIC AL INDICA TION: Reason For Exam: [...] By: Jamie Munguia rd, MD [facility] ([facility]) [address], [place], [address], 01/26/2025 13:05:01 01/27/20 25 01/24/2025 MRI, knee, w/o contr [facility] Access ion Number : [id number] Patien t Name: Andressa Reese Record Number : [id number] Date of : 1975 Date of Exam: 2024 Referr ing Physic lorie: [facility] [address], [address] [place] [address] Exam: MR Knee (C-) CPT 26126 - Left Room Descri ption: [place] GE Pion 3T MR Knee (C-) CPT 95264 CLINIC AL INDICA TION: Left knee pain [...] onical ly Signed By: Jamie Munguia rd, MD, [facility] ([facility]) [address], [place], [address], 01/26/2025 13:05:00 Result Notes Documentation Provider Name and Address Organization Details Recorded Time Xr, Knee, 4 Or More View : [email or web address] ncrypted=olGdEbhMG9jUlzIQg 6g%5MXRonLavna6sdmv%2Fg9IQ q5ksYteI5jTySQfudZd1OjNKHm KdvSSX3kPtBPvyv80c1231PQ4G vgCcPG4VoBbJvlMhJ Not Available [facility] 11/18/2024 11:26:58 Xr, Knee, 4 Or More View : [email or web address] ncrypted=hoSmRxuPG1zBmiXHx 6g%7CMWorLckyi8wweq%2Fg9IQ c7arIltB0iRqIIcrvDi0MrQYXs UqhLTQ2yOsIUmex32y7104XX4G fxWoMV8YpMsKjkDbG Not Available [facility] 11/18/2024 11:27:00 Mri, Knee, W/o Contrast : [facility] Accession Number: [id number] Patient Name: Scott Miner Date of : 1975 Date of Exam: 01-24-2025 Referring Physician: Dylan Rasheed [facility] ([facility]) [address], [address] [place] [address] Exam: MR Knee (C-) CPT 28799 - Right Room Description: [place] GE Pion 3T MR Knee (C-) CPT 82527 CLINICAL INDICATION: Reason For Exam: S83.241S - Other tear of medial meniscus, current injury, right knee, sequela, , R knee mri without contrast ?ing MMT Reason For Exam: S83.241S - Other tear of medial meniscus, current injury, right knee, sequela, , R knee mri without contrast ?ing MMT TECHNIQUE: MRI of the right knee was performed without intravenous contrast. COMPARISON: None FINDINGS: Joint effusion: Small joint effusion and El's cyst which measures 5.9 x 2.9 x 2.6 cm. Menisci: Medial meniscus: Medial meniscus is intact. Lateral meniscus: Mild blunting of the free edge of the anterior horn keeping with mild free edge radial tear. Tendons and ligaments: ACL and PCL are intact. MCL, LCL complex and popliteus insertion are intact. Extensor mechanism is intact. Bone and articular cartilage: Moderate chondral thinning along the anterior and central weightbearing surfaces of the medial tibiofemoral compartment. Mild chondral thinning along the medial aspect of the lateral femoral condyle central weightbearing cortex Mild chondral fissuring along the median patellar ridge and lateral patellar facet. Tiny tricompartmental osteophytes are present. No evidence of fracture, or bone marrow contusion. The articular cartilage is normal in thickness. No focal defects are seen. Nonspecific subcutaneous soft tissue swelling anteriorly IMPRESSION: Mild free edge radial tear at the anterior horn of the lateral meniscus Chondral thinning greatest within the medial tibiofemoral compartment Small joint effusion El's cyst Electronically Signed By: Jamie DENNY [place], [place] - [facility] 01/26/2025 13:05:01 Mri, Knee, W/o Contrast : [facility] Accession Number: [id number] Patient Name: Scott Miner Date of : 1975 Date of Exam: 01-24-2025 Referring Physician: Dylan Rasheed [facility] ([facility]) [address] [place] [address] Exam: MR Knee (C-) CPT 90265 - Left Room Description: [facility] Pion 3T MR Knee (C-) CPT 65044 CLINICAL INDICATION: Left knee pain TECHNIQUE: MRI of the left knee was performed without intravenous contrast. COMPARISON: None FINDINGS: Joint effusion: Small joint effusion. Edema signal within the superolateral aspect of Hoffa's fat pad which can be seen in setting of fat pad impingement. Menisci: The medial and lateral menisci are intact. Tendons and ligaments: ACL and PCL are intact. MCL, LCL complex and popliteus insertion are intact. Extensor mechanism is intact. Bone and articular cartilage: Alignment is within normal limits. No evidence of fracture, bone marrow contusion or focal bone marrow signal abnormality. The articular cartilage is normal in thickness. No focal defects are seen. Diffuse nonspecific subcutaneous soft tissue swelling greatest anteriorly. IMPRESSION: Edema signal within the superolateral aspect of Hoffa's fat pad which can be seen in the setting of fat pad impingement. No evidence of meniscal tear or ligamentous injury Small joint effusion and nonspecific soft tissue swelling Electronically Signed By: Jamie DENNY [facility] 01/26/2025 13:05:00 Problems Name Problem SNOMED Code Status Onset Date Resolution Date Notes Provider Name and Address Organization Details Recorded Time Primary gonarthrosi s, bilateral 869633928 Active 025 Dylan Rasheed PA-C [address], [place], [address], [facility] 12:52:14 Problem Notes None recorded. Procedures Surgical History Date Name Laterality Status Provider Name and Address Organization Details Recorded Time 5 Euflexxa Knee Injection Antonio completed Dylan Rasheed PA-C [address], [place], [address], [facility] 02/03/2025 08:30:20 5 Euflexxa Knee Injection Antonio completed Dylan Rasheed PA-C [address], [place], [address], [facility] 01/30/2025 08:40:07 5 Euflexxa Knee Injection Antonio completed Dylan Rasheed PA-C [address], [place], [address], [facility] 01/26/2025 12:52:07 5 Sports Knee 4&1 completed Dylan Rasheed PA-C [address], [place], [address], [facility] 11/18/2024 12:45:37 Imaging Results None recorded. Procedure Notes None recorded. Medical Equipment None Reported. Allergies Allergen ID Allergen Name Allergen Category Reaction Reaction Severity Criticality Documentation Date Start Date Code Code System Note Provider Name and Address Organization Details Recorded Time 409107 Ambien medicatio n Not available Not available Not available 11/18/2024 78474 5 RxNorm Maria Aulises sheridan [facility] 5 11:18:09 03233 shrimp allergeni c extract food Not available Not available Not available 11/25/20232017 26661 2 RxNorm Aller gyRea ction : 'Naus ea/Vo mitin g/Judi rrhea '; Not Available [facility] 4 14:22:55 Medications Name Sig Start Date [...] Updated DateTime 11/18/2024 167.64 cm 30.7 kg/m2 07253.55 g Maria A Mccrary [facility] 11/18/2024 11:17:35 Date Recorded Body height Body mass index (BMI) Body weight Provider Name and Address Organization Details Last Updated DateTime 01/21/2025 167.64 cm 30.7 kg/m2 37369.55 g JENNIE WITT [facility] 01/21/2025 09:23:23 Date Recorded Body height Body mass index (BMI) Body weight Provider Name and Address Organization Details Last Updated DateTime 01/29/2025 167.64 cm 30.7 kg/m2 45217.55 g DAISY BARTON [facility] 01/29/2025 09:35:32 Date Recorded Body height Body mass index (BMI) Body weight Provider Name and Address Organization Details Last Updated DateTime 02/03/2025 167.64 cm 30.7 kg/m2 88551.55 g Genesis Wilcox [place] - [facility] 02/03/2025 08:42:13 Social History None recorded. Functional Status None recorded. Mental Status None recorded. Family History Nothing Reported. Medical History Condition Response Sleep Apnea Y Gynecological HistoryNo gynecological history recorded. Obstetrics History GPAL:G 0 P 0 0 0 0 Past Encounters Encounter ID Performer Location Encounter Start Date Encounter Closed Date Diagnosis/Indication Diagnosis SNOMED-CT Code Diagnosis ICD10 Code Diagnosis Note [id number] [facility] - [facility] [address] [place] [address] 11/18/2024 11:04:49 12/07/2024 15:47:59 Pain of knee region 6499248212 M25.561 M25.562 G89.29 Primary go narthrosis, bilateral 654529947 M17.0 [id number] LYNDA Cruz[facility] - [place] [address] [place] [address] 01/21/2025 09:13:06 02/08/2025 11:12:29 Tear of medial meniscus of left knee joint 5910070404 7104 S83.242S Tear of me dial meniscus of right knee joint 0133726459 7102 S83.241S Primary go narthrosis, bilateral 094733251 M17.0 [id number] LYNDA Cruz[facility] - [facility] [address] [place] [address] 01/29/2025 09:18:51 02/16/2025 14:06:35 Primary gonarthrosis, bilateral 240635767 M17.0 [id number] LYNDA Cruz[facility] - [facility] [address] [place] [address] 02/03/2025 08:21:02 02/22/2025 10:17:46 Primary gonarthrosis, bilateral 362718462 M17.0 Health Concerns Section Related Observation LastModified by Organization Detai ls LastModified Time None Recorded Concern Status LastModified by Organization Details LastModified Time None Recorded Advance Directives Directive None Recorded Payers Insurance Date Sequence Insurance Name Policy Number Policy Ross Covered Member ID Ross Member ID Guarantor Name 02/22/[address] [facility] - DOS ON OR AFTER 2022 - ONE CARE (MEDICARE REPLACEMENT/AD VANTAGE - HMO) Scott Miner [id number] Scott Miner Notes Date Note Type Note [...] Recheck for that. Dylan Rasheed PA-C [address] [facility], [place], [address], [facility] - [facility] 11/18/2024 12:48:12 01/21/2025 text/html [...] strength. Some discomfort with range of motion. Assessment Osteoarthritis of knee -bilateral knees PlanAfter meticulous [...] and medically indicated. Dylan Rasheed PA-C [address], [place], [address], [facility] - [facility] 01/26/2025 12:52:35 01/29/2025 text/html I am seeing [...] meniscus. There is a small joint effusion Assessment Osteoarthritis of knee -bilateral knees. Plan: We [...] follow up injection. Dylan Rasheed PA-C [address], [place], [address], [facility] 01/30/2025 08:40:50 02/03/2025 text/html I [...] strength. Some discomfort with range of motion. Assessment Osteoarthritis of knee -bilateral knees PlanAfter meticulous sterile preparation, both knees were injected with # 3 Euflexxa 20MG. Post-injection precautions were reviewed. I recommend ice, restriction of activities and re-evaluation next week for follow up injection. Dylan Rasheed PA-C [address], [place], [address], [facility] 02/03/2025 08:54:18 OBGyn Episode No OBEpisode recorded.
--- OUTSIDE RECORDS SUMMARY | 2025-04-13 08:11 | XMS_ITS | Encounter Summary ---
Author Organization [employer] Address [address] [place] [address] Care Team Providers Care Business Line Manager Name Role Phone Key Rodríguez MD Primary Care Provider [phone] Reason for Visit * Reason Onset Date Comments Durable Medical Equipment 11/05/2024 Encounter Details Date Type Department Care Team ([facility] st Contact Info) Description 11/05/2024 Telephone [facility] [address] [place] [address] Key Rodríguez MD [address] [place] [address] Durable Medical Equipment Social History Tobacco Use [...] [facility]. Pt is requesting a call back [phone] * Telephone Encounter - Vijay Barriga - 11/05/2024 10:41 AM EST Tc from pt requesting compression socks to be sent to [facility]. Pt is requesting a call back [phone] documented in this encounter Plan of Treatment Upcoming Encounters Date Type Department Care Team ([facility] st Contact Info) Description 05/12/2025 9:15 AM EDT Office Visit [facility] [address] [place] [address] Key Rodríguez MD [address] [place] [address] documented as of this encounter Visit Diagnoses Not on filedocumented in this encounter Additional Health Concerns Assessment Noted Time PHQ-9 Depression Total Score: 9 03/03/20 24 3:00 PM EDT documented as of this encounter Care Teams Business Line Manager Relationship Specialty Start Date End Date Key Rodríguez MD [address] [place] [address] PCP - General Family Medicine 09/23/18 documented as of this encounter
[2025-04-13 08:15] VITALS: PULSE 71; O2SAT 97; BMI 33.5
--- NOTE | 2025-04-13 08:15 | A.OFFVIS_ITS ---
Vital Signs 04/13/25 08:15 Height 5 ft 6 in Weight 207 lb 6 oz BMI 33.5 Pulse 71 Pulse Source Pulse Oximeter Pulse Oximetry (%) 97 Oxygen Delivery Method Room Air Intake Visit Reasons: 3 month Follow up Intake Note: Patient presents follow up ROEL. PT/Compliance in chart(days, >=4hrs-27%, average usage-2hr 6min, Med pressure-8.6, Med leaks-22.0, AHI-1.6) Allergies latex Allergy (Severe, Verified 04/13/25 08:18) Anaphylaxis zolpidem (From Ambien) Allergy (Severe, Verified 04/13/25 08:18) Confusion shrimp Allergy (Severe, Uncoded 09/13/23 11:34) Eye Swelling HPI Comments Details: 49 y/o female patient with hx of asthma presents for f/u of ROEL. PSG 10/2022, moderate ROEL, AHI was 22.4/hr and oxygen neelam was 81%. 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 She says pressures ramp up, it continues to be very loud, after several attempts she pulls off the mask. She says now she is working 3 days a week and plans to picking crew supervisor her new machine and will try to be more compliant. She has bilateral knee pain due to grinding of the knee. She has bilateral leg pain due to Chondromalacia and has radiating pain down her buttocks with numbness, and a tingling sensation in both feet radiating up to the calves and knees. She gets iron infusions when she is fatigued d/t VASHTI. She has a history of REM behavior disorders with nightmares, screaming, kicking and moving around in her sleep. She sleeps better with topiramate 50mg po BID. She is working with a therapist now every 2 weeks and focusing on self care as she plans to return to school. Her mood has improved since decreasing her alcohol intake. She does not smoke, do MJ, edibles, and or vape. 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 Assessment & Plan Assessment & Plan (1) ROEL (obstructive sleep apnea): Comment: Moderate degree of sleep apnea. The AHI was 22/hr and oxygen neelam was 81% Code(s): G47.33 - Obstructive sleep apnea (adult) (pediatric) Category: Medical (2) Low vitamin D level: Code(s): R79.89 - Other specified abnormal findings of blood chemistry Category: Medical (3) RLS (restless legs syndrome): Code(s): G25.81 - Restless legs syndrome Category: Medical (4) Right sided sciatica: Comment: PT Code(s): M54.31 - Sciatica, right side Category: Medical (5) Iron deficiency anemia: Code(s): D50.9 - Iron deficiency anemia, unspecified Category: Medical Qualifiers: Iron deficiency anemia type: chronic blood loss Qualified Code(s): D50.0 - Iron deficiency anemia secondary to blood loss (chronic) (6) Hip pain, bilateral: Code(s): M25.551 - Pain in right hip; M25.552 - Pain in left hip Category: Medical (7) Night terrors: Code(s): F51.4 - Sleep terrors [night terrors] Category: Medical (8) Excessive daytime sleepiness: Code(s): G47.19 - Other hypersomnia Category: Medical (9) Leg muscle spasm: Code(s): M62.838 - Other muscle spasm Category: Medical Plan Cpap compliance reviewed, she will try to be more compliant. Night terrors Topiramate r/f. 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 PT RLS/ Sciatica Advised patient to continue to take 400 mg of magnesium qhs to prevent leg muscle cramping, spasms, pins needles. VASHTI will check Labs. Will re-check the Ferritin as it was low b12/ cbc/ cmp. Requested MRI from [facility] for the Aneurysm in the brain. rajinder compression stockings, and pedal bike F/u in 3 months for compliance of ROEL Orders: Orders IRON PROFILE Today G47.19 - Other hypersomnia, G47.9 - Sleep disorder, unspecified, R53.83 - Other fatigue Complete Blood Count no Diff Today G47.19 - Other hypersomnia Comprehensive Met. Panel Today G47.19 - Other hypersomnia Vitamin B12 and Folate Today G47.19 - Other hypersomnia Methylmalonic Acid Today G47.19 - Other hypersomnia, G47.9 - Sleep disorder, unspecified, R53.83 - Other fatigue TSH reflex Free T4 Today G47.19 - Other hypersomnia Medications: New [compression stockings] As directed for RLS; cramps and / bilateral leg swelling 2 ea 0RF Leg swelling M62.838 - Other muscle spasm Changed From topiramate 50 mg PO BID G47.33 - Obstructive sleep apnea (adult) (pediatric) To topiramate take 2 tablets daily morning and night. 50 mg PO BID 60 tabs 0RF 1 month MDD 100mg G47.33 - Obstructive sleep apnea (adult) (pediatric) From ergocalciferol (vitamin D2) 1,250 mcg PO QWEEK R79.89 - Other specified abnormal findings of blood chemistry To ergocalciferol (vitamin D2) 1,250 mcg PO QWEEK 13 caps 0RF low vitamin d 3 months R79.89 - Other specified abnormal findings of blood chemistry Refilled magnesium oxide 400 mg PO BEDTIME 30 tabs 6RF 30 days ferrous sulfate take one tablet at lunch with 1/2 glass of orange juice. If you have hard stools you may take this iron supplemnent every other day, and drink plenty of water daily. 325 mg PO DAILY 90 tabs 3RF low ferritin 3 months MDD 1 tablet 325mg R79.0 - Abnormal level of blood mineral Patient Instructions: Sleep Hygiene provided: set a scheduled bedtime and wake time to help regulate the circadian rhythm and balance the release of pituitary hormones. Sleep in a dark room, temperatures below 68 degrees, and no devices n bed. Limit caffeinated products 6 hours prior to bed, and limit fluids 2-4 hours prior to bed. Gentle night yoga, diffusing essential oils, and playing soft music can be relaxing. patient education about compliance and importance of cpap use provided today, Coding Level of Care Code Est Pt Level 4 (44154) Diagnoses ROEL (obstructive sleep apnea) G47.33 Low vitamin D level R79.89 RLS (restless legs syndrome) G25.81 Right sided sciatica M54.31 Iron deficiency anemia due to chronic blood loss D50.0 Iron deficiency anemia type: chronic blood loss Hip pain, bilateral M25.551; M25.552 Night terrors F51.4 Excessive daytime sleepiness G47.19 Leg muscle spasm M62.838 Time Spent (min) 30 Comment patient education re: aneurysm and ROEL risk factors
== END 2025-04-13 09:03 | disposition home or self-care (01) ==
LOC: HO.HSMS 08:07
PROVIDERS: PCP Pediatrics; Visit Provider Physician Assistant Medical
DX: G47.33 Obstructive sleep apnea (adult) (pediatric) (principal); R79.89 Other specified abnormal findings of blood chemistry; G25.81 Restless legs syndrome; M54.31 Sciatica, right side; D50.0 Iron deficiency anemia secondary to blood loss (chronic); M25.551 Pain in right hip; M25.552 Pain in left hip; F51.4 Sleep terrors [night terrors]; G47.19 Other hypersomnia; M62.838 Other muscle spasm
CPT/HCPCS: 99214

== ENCOUNTER → 2025-04-13 08:07 | Outpatient (BNVA) | payer OTHER, SELFPAY | PROVIDERS: PCP Pediatrics; Visit Provider Physician Assistant Medical | DX: G47.33 Obstructive sleep apnea (adult) (pediatric) (principal); R79.89 Other specified abnormal findings of blood chemistry; G25.81 Restless legs syndrome; M54.31 Sciatica, right side; D50.0 Iron deficiency anemia secondary to blood loss (chronic); M25.551 Pain in right hip; M25.552 Pain in left hip; F51.4 Sleep terrors [night terrors]; G47.19 Other hypersomnia; M62.838 Other muscle spasm | CPT/HCPCS: 99212 ==

== ENCOUNTER 2025-05-12 09:05 | Outpatient (REF) | payer OTHER, SELFPAY ==
--- OUTSIDE RECORDS SUMMARY | 2025-05-12 09:47 | XMS_ITS | Encounter Summary ---
Author Organization [employer] Address [address] [facility] [address] [place] [address] Care Team Providers Care Outbound Sales Advisor Name Role Phone Key Rodríguez MD Primary Care Provider [phone] Reason for Visit * Reason Onset Date Comments Durable Medical Equipment 11/05/2024 Encounter Details Date Type Department Care Team ([facility] st Contact Info) Description 11/05/2024 Telephone [facility] MED[facility]INE [address] [place] [address] Key Rodríguez MD [address] [place] [address] Durable Medical Equipment Social History Tobacco Use [...] ines. Pt is requesting a call back [phone] * Telephone Encounter - Vijay Barriga - 11/05/2024 10:41 AM EST Tc from pt requesting compression socks to be sent to ines. Pt is requesting a call back [phone] documented in this encounter Plan of Treatment Not on file documented as of this encounter Visit Diagnoses Not on filedocumented in this encounter Additional Health Concerns Assessment Noted Time PHQ-9 Depression Total Score: 9 03/03/20 24 3:00 PM EDT documented as of this encounter Care Teams Outbound Sales Advisor Relationship Specialty Start Date End Date Key Rodríguez MD [address] [place] [id number] PCP - General Family Medicine 09/23/18 documented as of this encounter
[2025-05-12 14:48] LABS: Hematocrit 40.9 % (37.0-47.0); Hemoglobin 13.6 g/dl (12.0-16.0); Mean Corpuscular HGB Conc 33.3 g/dl (31.0-35.0); Mean Corpuscular Hemoglobin 31.3 pg (27.0-33.0); Mean Corpuscular Volume 94.0 fL (80.0-98.0); NRBC Abs Auto 0.000 X10*3/uL (0.0-0.012); NRBC Pct Auto 0.0 /100WBC (0.0-0.2); Platelet Count 220 X10*3/uL (160-400); Red Blood Count 4.35 X10*6/uL (4.20-5.50); White Blood Count 6.8 X10*3/uL (4.8-10.8)
[2025-05-12 15:15] LABS: Alanine Aminotransferase 94 U/L (0-31); Albumin Level 4.6 g/dL (3.5-5.0); Alkaline Phosphatase 61 U/L (39-117); Anion Gap 15 (12-20); Aspartate Amino Transferase 121 U/L (5-31); Blood Urea Nitrogen 4 mg/dL (9-16); Calcium 9.8 mg/dL (8.4-10.2); Carbon Dioxide 26 mmol/L (22-29); Chloride 100 mmol/L (96-108); Estimated Glomerular Filt Rate > 60; Iron 104 mcg/dL (30-160); Percent Iron Saturation 31 % (15-50); Potassium 3.2 mmol/L (3.3-5.1); Sodium 138 mmol/L (135-145); Total Iron Binding Capacity 336 mcg/dL (228-428); Total Protein 7.7 g/dL (6.5-8.0); Unsaturated Iron Binding 232 ug/dL
[2025-05-12 15:37] LABS: Folate 11.9 ng/mL (> or = 4.0); Vitamin B12 1486 pg/mL (200-900)
== END 2025-05-12 09:06 | disposition home or self-care (01) ==
LOC: HO.CHCLDS 09:05
PROVIDERS: Visit Provider Physician Assistant Medical
DX: G47.19 Other hypersomnia (principal); R53.83 Other fatigue
CPT/HCPCS: 36415; 80053; 82607; 82746; 83540; 83921; 84443; 85027

== ENCOUNTER 2025-05-27 11:50 | Outpatient (REF) | payer OTHER, SELFPAY ==
--- OUTSIDE RECORDS SUMMARY | 2025-05-27 11:15 | XMS_ITS | Encounter Summary ---
Author Organization [employer] Address [address] [facility] [address], [place] [address] Care Team Providers Care Drawing Tracer Name Role Phone Key Rodríguez MD Primary Care Provider [phone] Reason for Referral * Imaging (Routine) - Closed Specialty Diagnoses / Procedures Referred By Contac t Referred To Contact Radiology Diagnoses Breast cancer screening by mammogram Procedures BI Mammogram Screening Tomosynthesis Bilateral Key Rodríguez MD [address] [place] [address] Phone: tel: fax: [address] Phone: tel: fax: Referral ID Status Reason Start Date Expiration Date Visits Re quested Visits Authorized [id number] Closed 05/27/2025 05/27/2026 1 1 Encounter Details Date Type Department Care Team (Late st Contact Info) Description 05/27/2025 11:15 AM EDT Office Visit [facility] [address] [place] [address] Key Rodríguez MD [address] [place] [address] Galactorrhea (Primary Dx); Breast cancer screening by mammogram Social History Tobacco Use Types Packs/Day Years [...] Sign Reading Time Taken Comments Blood Pressure 122/80 05/27/2025 11:16 AM EDT Pulse 76 05/27/2025 11:16 AM EDT Temperature 37.1 C (98.7 F) 05/27/2025 11:16 AM EDT Respiratory Rate 20 05/27/2025 11:16 AM EDT Oxygen Saturation - - Inhaled Oxygen Concentration - - Weight 94.8 kg (209 lb) 05/27/2025 11:16 AM EDT Height 165.1 cm (5' 5 ) 05/27/2025 11:16 AM EDT Body Mass Index 34.78 05/27/2025 11:16 AM EDT documented in this encounter Plan of Treatment Upcoming Encounters Date Type Department Care Team (Late st Contact Info) Description 05/31/2025 9:00 AM EDT Office Visit [facility] ADULT D[facility] [address] [place] [address] Rohit Fairchild 07/27/2025 9:00 AM EST Office Visit [facility] PED[facility] [address] [place] [address] Key Rodríguez MD [address] [place] [address] Scheduled Orders Name Type Priority Associated Diagnoses Orde r Schedule Prolactin Lab Routine Galactorrhea Expected: 05/27/2025 (Approximate), Expires: 05/26/2026 TSH W/Reflex to FT4 Lab Routine Galactorrhea Expected: 05/27/2025 (Approximate), Expires: 05/26/2026 BI Mammogram Screening Tomosynthesis Bilateral Imaging Routine Breast cancer screening by mammogram Expected: 05/27/2025, Expires: 07/27/2026 documented as of this encounter Visit Diagnoses Diagnosis Galactorrhea- Primary Galactorrhea not associated with childbirth Breast cancer screening by mammogram documented in this encounter Additional Health Concerns Assessment Noted Time PHQ-9 Depression Total Score: 9 03/03/20 24 3:00 PM EDT documented as of this encounter Care Teams Drawing Tracer Relationship Specialty Start Date End Date Key Rodríguez MD [address] [place] [id number] PCP - General Family Medicine 09/23/18 documented as of this encounter
--- OUTSIDE RECORDS SUMMARY | 2025-05-27 13:29 | XMS_ITS | Encounter Summary ---
Author Organization [employer] [facility] Address [address] [facility] [address], [place] [address] Care Team Providers Care Pole Tester Name Role Phone Key Rodríguez MD Primary Care Provider [phone] Encounter Details Date Type Department Care Team (Late Contact Info) Description 04/08/2023 Orders Only [facility] MEDICINE [address] [place] [address] Anika Messina LPN Social History Tobacco Use [...] Description 05/31/2025 9:00 AM EDT Office Visit [facility] ADULT DENTAL [address] [place] [address] Rohit Fairchild 07/27/2025 9:00 AM EST Office Visit [facility] MED & PEDS [address] [place] [address] Key Rodríguez MD [address] [place] [address] documented as of this encounter Visit Diagnoses Not on filedocumented in this encounter Additional Health Concerns Assessment Noted Time PHQ-9 Depression Total Score: 9 03/25/20 23 10:35 AM EDT documented as of this encounter Care Teams Pole Tester Relationship Specialty Start Date End Date Key Rodríguez MD [address] [place] [address] PCP - General Family Medicine 09/23/18 documented as of this encounter
--- OUTSIDE RECORDS SUMMARY | 2025-05-27 13:29 | XMS_ITS | Encounter Summary ---
Author Organization [employer] [facility] Address [address] [facility] [address] [address] Care Team Providers Care Field Care Manager Name Role Phone Key Rodríguez MD Primary Care Provider [phone] Encounter Details Date Type Department Care Team (Latest Contact Info) Description 11/29/2020 Abstract [facility] CONVERSIONS Dental, Provider, DDS Social History [...] Upcoming Encounters Date Type Department Care Team ( st Contact Info) Description 05/31/2025 9:00 AM EDT Office Visit [facility] ADULT DENTAL [address] [place] [address] Rohit Fairchild 07/27/2025 9:00 AM EST Office Visit [facility] MED & PEDS [address] [place] [address] Key Rodríguez MD [address] [place] [address] documented as of this encounter Visit Diagnoses Not on filedocumented in this encounter Care Teams Field Care Manager Relationship Specialty Start Date End Date Key Rodríguez MD [address] [place] [address] PCP - General Family Medicine 09/23/18 documented as of this encounter
--- OUTSIDE RECORDS SUMMARY | 2025-05-27 13:29 | XMS_ITS | Clinical Summary ---
Author Organization [employer] Address [address] [facility] 7t [place] [address] Care Team Providers Care Supervisor Nurse Name Role Phone Key Rodríguez MD Primary Care Provider [phone] Allergies Active Allergy Reactions Criticality Noted Date Comments Cat Dander 05/06/2023 Dust Mite Extract 02/04/2024 Latex Rash Low 08/29/2022 OK to give Camille injections. Shellfish Allergy Swelling 08/29/2022 Zolpidem Hallucinations 09/22/2019 Medications * This document contains information received from the source organization and may not represent a complete record from that organization. ferrous sulfate 325 (65 Fe) MG tablet Take 1 tablet by mouth every 12 (twelve) hours. 016 Active ergocalciferol (Vitamin D2) 1.25 MG (76982 UT) capsuleIndications :Vitamin D deficiency TAKE 1 [...] 1.1-5 % pasteIndications:D entin hypersensitivity,D ental caries [place] teeth for 2 minutes, morning and night. Spit, do not rinse. Do not eat or drink anything for 30 minutes following brushing. 112 g 3 024 Active Sod Fluoride-Potassium Nitrate 1.1-5 % pasteIndications:D entin hypersensitivity [place] teeth for 2 minutes, morning and night. Spit, do not rinse. Do not eat or drink anything for 30 minutes following brushing. 112 g 3 024 Active folic acid (Folvite) 1 MG tablet Take 1 tablet (1 mg) by mouth Once per day. 30 tablet 11 024 09/18 Active cyanocobalamin (Vitamin B-12) 500 MCG tablet Take 1 tab orally daily 30 tablet Active Melatonin 3 MG capsule Take 1 capsule orally nightly prn insomnia 30 capsule Active loratadine (Claritin) 10 MG tablet TAKE 1 TABLET BY MOUTH EVERY DAY 90 tablet 3 Active medroxyPROGESTERon e (Depo-Provera) 150 MG/ML injectionIndicatio ns:Uses control BRING TO OFFICE FOR ADMINISTRATION EVERY THREE MONTHS 1 mL Active naltrexone (Depade) 50 MG tablet Take 1 tablet (50 mg) by mouth Once per day. 30 tablet 11 025 12/23 Active Ventolin HFA 108 (90 Base) MCG/ACT inhalerIndications :Bipolar disorder, in partial remission, most recent episode mixed (CMS/HCC),Moderate persistent asthma in adult without complication INHALE TWO puffs FOUR TIMES DAILY NEEDED 18 g 3 Active hydrocortisone 2.5 % cream Apply topically 2 times daily. 15 g 1 Active clotrimazole (Lotrimin) 1 % cream Apply topically 2 times daily. 30 g Active Blood Pressure kit 1 each 2 times daily. 1 kit 025 03/24 Active diclofenac (Voltaren) 75 MG EC tablet Take 1 tablet (75 mg) by mouth 2 times daily. 60 tablet 1 025 03/31 Active omeprazole (PriLOSEC) [address] capsule TAKE 1 CAPSULE(40 MG) BY MOUTH BEFORE BREAKFAST. DO NOT CRUSH OR CHEW 90 capsule 1 08/25/2 025 Active topiramate (Topamax) 100 MG tabletIndications: Bipolar affective disorder, remission status unspecified (CMS/HCC) TAKE 1 TABLET BY MOUTH TWICE A DAY. TAKE WITH TOPIRAMATE 50 MG TWICE DAILY. 180 tablet 3 025 Active topiramate 50 MG tablet TAKE 1 TABLET BY MOUTH TWICE A DAY. TAKE WITH TOPIRAMATE 100 MG TWICE DAILY. 180 tablet 3 025 Active cloNIDine (Catapres) 0.1 MG tablet TAKE 1 TABLET BY MOUTH TWICE DAILY 60 tablet 1 025 Active acetaminophen-code ine (Tylenol w/ Codeine #3) 300-30 MG tablet TAKE 1 TABLET BY MOUTH EVERY 6 HOURS FOR UP TO 10 DAYS NEEDED FOR SEVERE PAIN Active hydrOXYzine pamoate (Vistaril) 25 MG capsule 025 Active topiramate 50 MG tablet Take 50 mg by mouth 2 times daily. Take with Topiramate 100 mg twice daily 180 tablet 3 024 05/17 Discontinued( Reorder (will not trigger notification to Pharmacy)) topiramate (Topamax) 100 MG tabletIndications: Bipolar affective disorder, remission status unspecified (CMS/HCC) Take 1 tablet (100 mg) by mouth 2 times daily. Take with Topiramate 50 mg twice daily 180 tablet 3 024 05/17 Discontinued( Reorder (will not trigger notification to Pharmacy)) omeprazole (PriLOSEC) [address] capsule TAKE 1 CAPSULE(40 MG) BY MOUTH BEFORE BREAKFAST. DO NOT CRUSH OR CHEW 90 capsule 1 025 05/17 Discontinued( Reorder (will not trigger notification to Pharmacy)) cloNIDine (Catapres) 0.1 MG tablet TAKE 1 TABLET(0.1 MG) BY MOUTH TWICE DAILY 60 tablet 1 025 05/25 Discontinued( Reorder (will not trigger notification to [...] She lost care from therapy services with [facility], and missed appts with Adarsh Hansen for [...] intervention , Patient to [facility] to [facility] team [facility] needed, Comply with medication , [...] hallucinations, anger and explosive personality elements, ?PTSD. [place] was previously helpful, but developed tremor of hands and lips when took [place] consistently at 300 mg 2 daily. She [...] hallucinations, anger and explosive personality elements, ?PTSD. [place] was previously helpful, but developed tremor of hands and lips when took [place] consistently at 300 mg 2 daily. She [...] hallucinations, anger and explosive personality elements, ?PTSD. [place] was previously helpful, but developed tremor of hands and lips when took [place] consistently at 300 mg 2 daily. She [...] hallucinations, anger and explosive personality elements, ?PTSD. [place] was previously helpful, but developed tremor of hands and lips when took [place] consistently at 300 mg 2 daily. She [...] hallucinations, anger and explosive personality elements, ?PTSD. [place] was previously helpful, but developed tremor of hands and lips when took [place] consistently at 300 mg 2 daily. She [...] hallucinations, anger and explosive personality elements, ?PTSD. [place] was previously helpful, but developed tremor of hands and lips when took [place] consistently at 300 mg 2 daily. She is on Depo Provera, with regular follow up, so at very low risk of unintended . Doing much better with Topiramate 100 mg BID. F/U with therapist as usual and F/U with me in 6 weeks. She agrees with the plan. Assessment & Plan (10/01/2022 11:35 AM EST): with hallucinations, anger and explosive personality elements, ?PTSD. [place] was previously helpful, but developed tremor of hands and lips when took [place] consistently at 300 mg 2 daily. She [...] agrees with the plan. Obesity 12/21/2011 Encounters Date Type Department Care Team Description 05/27/2025 11:15 AM EDT Office Visit [facility] [address] [place], [place] [phone] Key Rodríguez MD Galactorrhea (Primary Dx); Breast cancer screening by mammogram 05/27/2025 Travel 05/25/[address] [address] Key Rodríguez MD 05/25/[address] [address] Key Rodríguez MD Med Refill 05/25/2025 Telephone [facility] [address] [place] [address] Key Rodríguez MD Nurse Triage 05/17/2025 Patient Outreach [address] [address] Melvin Magaña Recovery Supports 05/15/2025 Refill [facility] [address] [place] [address] Key Rodríguez MD Bipolar affective disorder, remission status unspecified (CMS/HCC) 05/12/2025 9:15 AM EDT Office Visit [facility] [address] [place] [address] Key Rodríguez MD Alcohol use disorder (Primary Dx); Alcohol withdrawal syndrome with complication (CMS/HCC) 05/12/2025 Travel 05/12/2025 Telephone [facility] [address] [place] [address] Key Rodríguez MD chart prep 05/11/2025 Telephone [facility] [address] [place] [address] Key Rodríguez MD 04/09/2025 Telephone [facility] [address] [place] [address] Key Rodríguez MD No Show 03/31/2025 Orders Only [facility] [address] [place] [address] Key Rodríguez MD Coccyx pain (Primary Dx) 03/31/[address] [address] Key Rodríguez MD Call Back Request 03/30/2025 Refill [facility] [address] [facility], [place] [phone] Key Rodríguez MD Coccyx pain 03/24/2025 10:40 AM EDT Office Visit [facility] [address] [place] [address] Shayan Clemente MD Rash (Primary Dx); Elevated blood pressure reading in office without diagnosis of hypertension 03/24/2025 Travel from Last 3 Months Immunizations Immunization Administration [...] 20 05/27/2025 11:16 AM EDT Oxygen Saturation 99% 05/12/2025 9:23 AM EDT Inhaled Oxygen Concentration - - Weight 94.8 kg (209 lb) 05/27/2025 11:16 AM EDT Height 165.1 cm (5' 5 ) 05/27/2025 11:16 AM EDT Body Mass Index 34.78 05/27/2025 11:16 AM EDT Plan of Treatment Upcoming Encounters Date Type Department Care Team (Late st Contact Info) Description 05/31/2025 9:00 AM EDT Office Visit [facility] [address] [place] [address] Rohit Fairchild 07/27/2025 9:00 AM EST Office Visit [facility] [address] [place] [address] Key Rodríguez MD [address] [place] [address] Health Maintenance Due Date Last Done Comments CT Colonography 1976 Colonoscopy 1976 FIT 1976 Lipid Panel 1976 SDOH Screening 1976 Sigmoidoscopy 1976 Disability Screening 1976 Alcohol/Substance Use Screening 1988 Hepatitis B Vaccines (1 of 3 - 19+ 3-dose series) 11/22/1995 Pneumococcal Vaccine: Pediatrics (0 to 5 Years) and At-Risk Patients (6 to 49) Years (1 of 2 - PCV) 11/22/1995 Mammogram 2016 DTaP/Tdap/Td Vaccines (2 - Td or Tdap) 02/25/2024 02/24/2014 Dental Oral Exam 08/07/2024 02/04/2024, 08/29/2022 Dental Prophylaxis 08/07/2024 02/04/2024, 08/29/2022 Depression Monitoring 09/02/2024 03/03/2024, 024 Dental X-Ray: Bitewings 02/04/2025 02/04/2024, 08/29 COVID-19 Vaccine ( season) 2025 07/05/2022, 03/08/2021, 02/08/2021 Influenza Vaccine (#1) 2025 , 07/27/2022, 07/12/2021, Additional history exists FOBT 06/12/2025 06/12/2024 Family Planning (PISQ) 09/24/2025 09/24/2024 Tobacco Screening 05/12/2026 05/12/2025 Zoster Vaccines (1 of 2) 2026 Dental X-Ray: Full Mouth 02/04/2027 02/04/2024 Cervical Cancer Screening 02/22/2027 HPV/Cotest 02/22/2027 02/22/2022, 09/04/2018 Pap Smear 02/22/2027 02/22/2022 Colorectal Cancer Screening 06/18/2027 FIT DNA/Cologuard 06/18/2027 [...] HM FIT DNA/COLOGUARD CANCER SCREENING Routine 06/18/2024 LAB COLOGUARD COLON CANCER SCREEN Routine 06/12/2024 6:30 AM EDT Colon cancer screening PROPHYLAXIS - ADULT Routine 02/04/2024 2 :00 [...] Screening (06/18/2024) Cologuard Cancer Screen Negative Stool us Key Rodríguez MD HEALTH MAINTENANCE Final Resu lt * Cologuard?? colon cancer screening (06/12/2024 6:30 AM EDT) Cologuard Result Negative Negative 06/18/20 6:07 PM EDT [facility] (CLIA #:[id number]) Comment: NEGATIVE TEST RESULT. A negative Cologuard result indicates a low likelihood that a colorectal cancer (CRC) or advanced adenoma (adenomatous polyps with more advanced pre-malignant features) is present. The chance that a person with a negative Cologuard test has a colorectal cancer is less than 1 in 1500 (negative predictive value >99.9%) or has an advanced adenoma is less than 5.3% (negative predictive value 94.7%). These data are based on a prospective cross-sectional study of 10,000 individuals at average risk for colorectal cancer who were screened with both Cologuard and colonoscopy. (Julian Rees al, N Engl J Med 2014;370(14):4854-0747) The normal value (reference range) for this assay is negative. COLOGUARD RE-SCREENING RECOMMENDATION: Periodic colorectal cancer screening is an important part of preventive healthcare for asymptomatic individuals at average risk for colorectal cancer. Following a negative Cologuard result, the [place] [employer] Society and U.S. Multi-Society Task Force screening guidelines recommend a Cologuard re-screening interval of 3 years. References: [place] [employer] Guideline for Colorectal Cancer Screening: https://www.cancer.org/cancer/iyuev-cdxhys-crzoxb/ohynlyjxd-auhppgulp-mplwqyh/ac s-rec ommendations.html.; Bulmaro DK, Jacqueline MALIK, Linda TrevizoK, Colorectal Cancer Screening: Recommendations for Physicians and Patients from the U.S. Multi-Society Task Force on Colorectal Cancer Screening , Am J Gastroenterology 2017; 112:7124-3357. TEST DESCRIPTION: Composite algorithmic analysis of stool DNA-biomarkers with hemoglobin immunoassay. Quantitative values of individual biomarkers are not reportable and are not associated with individual biomarker result reference ranges. Cologuard is intended for colorectal cancer screening of adults of either sex, 45 years or older, who are at average-risk for colorectal cancer (CRC). Cologuard has been approved for use by the U.S. FDA. The performance of Cologuard was established in a cross sectional study of average-risk adults aged 50-84. Cologuard performance in patients ages 45 to 49 years was estimated by sub-group analysis of near-age groups. Colonoscopies performed for a positive result may find as the most clinically significant lesion: colorectal cancer [4.0%], advanced adenoma (including sessile serrated polyps greater than or equal to 1cm diameter) [20%] or non- advanced adenoma [31%]; or no colorectal neoplasia [45%]. These estimates are derived from a prospective cross-sectional screening study of 10,000 individuals at average risk for colorectal cancer who were screened with both Cologuard and colonoscopy. (Julian Gonzáles, N Engl J Med 2014;370(14):1438-0558.) Cologuard may produce a false negative or false positive result (no colorectal cancer or precancerous polyp present at colonoscopy follow up). A negative Cologuard test result does not guarantee the absence of CRC or advanced adenoma (pre-cancer). The current Cologuard screening interval is every 3 years. ([place] [employer] Society and U.S. Multi-Society Task Force). Cologuard performance data in a 10,000 patient pivotal study using colonoscopy as the reference method can be accessed at the following location: www.ThinkSmart.[employer]/results. Additional description of the Cologuard test process, warnings and precautions can be found at [email or web address]-gord.com. Stool specimen (specimen) Rectal contents / Unknown 06/12/2024 6:30 AM EDT 06/13/2024 11:43 AM EDT us Key Rodríguez MD LAB MOLECULAR DIAGNOSTICS ORD ERABLES Final Result [facility] (CLIA #:[id number]) [address] [place] [address], * (ABNORMAL) THINPREP TIS PAP AND HPV mRNA E6/E7, CT/NG, TRICH (02/22/2022 12:00 AM EDT) Chlamydia trachomatis RNA, TMA, Urogenital NOT DETECTED NOT DETECTED [facility] Clinical Information: None given [facility] COMMENT SEE COMMENT [facility] Comment: The analytical performance characteristics of this assay, when used to test SurePath(TM) specimens have been determined by [employer]. The modifications have not been cleared or approved by the FDA. This assay has been validated pursuant to the CLIA regulations and is used for clinical purposes. For additional information, please refer to https://education.[employer] Yachting.[employer]/faq/EPY716 (This link is being provided for information/ educational purposes only.) COMMENT SEE COMMENT [facility] Comment: EXPLANATORY NOTE: The Pap is a screening test for cervical cancer. It is not a diagnostic test and is subject to false negative and false positive results. It is most reliable when a satisfactory sample, regularly obtained, is submitted with relevant clinical findings and history, and when the Pap result is evaluated along with historic and current clinical information. COMMENT: SEE COMMENT [facility] Comment: This case could not be evaluated with computer assisted technology. The slide was manually screened according to routine procedures. Oil Agent: SEE COMMENT [facility] Comment: ALS, CT(ASCP) CT screening location: [place] [address] HPV nRNA E6/E7 Not Detected Not Detected [facility] Comment: Methodology: Professor Of Exercise Science-Mediated Amplification This assay detects E6/E7 viral messenger RNA (mRNA) from 14 high-risk HPV types (16,18,31,33,35,39,45,51,52,56,58,59,66,68). Cervical sources are required for HPV testing. If a vaginal source from a patient who has had a total hysterectomy with removal of cervix was submitted, please contact the testing laboratory for alternative testing options. For additional information, please refer to http://Cartavi.[employer]/faq/SPS504x5 (This link if provided for information/ educational purposes only.) Infection Trichomonas vaginalis identified. [facility] Interpretation/Re sult: Negative for intraepithelial lesion or malignancy. [facility] LMP: NONE GIVEN [facility] Neisseria gonorrhoeae RNA, TMA, Urogenital NOT DETECTED NOT DETECTED [facility] Prev. BX: NONE GIVEN [facility] Prev. PAP: NONE GIVEN [facility] Review Oil Agent: SEE COMMENT [facility] Comment: DCR, CT(ASCP) CT screening location: [place] [address] SOURCE: None given [facility] Statement Of Adequacy: SEE COMMENT [facility] Comment: Satisfactory for evaluation. Endocervical/transformation zone component present. Age and/or menstrual status not provided Trichomonas vaginalis, QL, TMA, PAP Vial DETECTED(A) NOT DETECTED [facility] Comment: The analytical performance characteristics of this assay have been determined by [employer]. The modifications have not been cleared or approved by the FDA. This assay has been validated pursuant to the CLIA regulations and is used for clinical purposes. For additional information, please refer to http://Cartavi.[employer] Ticket/ faq/Trichomonastma (This link is being provided for information/ educational purposes only.) 02/22/2022 Key Rodríguez MD LAB PATHOLOGY ORDERABLES Jo l Result Performing Organization Address [facility] Co de Phone Number [facility] [address] [place] [address], * HEPATITIS C AB W/REFL TO HCV RNA, QN, PCR (07/12/2021 10:17 AM EDT) HEPATITIS C ANTIBODY NON-REACT TOBIAS NON-REACT TOBIAS [facility] INDEX 0.01 <1.00 [facility] Comment: HCV antibody was non-reactive. There is no laboratory evidence of HCV infection. In most cases, no further action is required. However, if recent HCV exposure is suspected, a test for HCV RNA (test code 55475) is suggested. For additional information please refer to http://Cartavi.Me[employer]/faq/OFO43b9 (This link is being provided for informational/ educational purposes only.) 07/12/2021 10:1 7 AM EDT Key Rodríguez MD HISTORICAL/NON ORDERABLE LABS Final Result Performing Organization Address [facility] de Phone Number [facility] [address] [place] [address], * HIV 1/2 ANTIGEN/ANTIBODY,FOURTH GENERATION W/RFL (07/12/2021 10:17 AM EDT) HIV-1/2 ANTIGEN AND ANTIBODIES, 4TH GENERATION W/ REFLEX NON-REACT TOBIAS NON-REACT TOBIAS [facility] Comment: HIV-1 antigen and HIV-1/HIV-2 antibodies were not detected. There is no laboratory evidence of HIV infection. PLEASE NOTE: This information has been disclosed to you from records whose confidentiality may be protected by state law. If your state requires such protection, then the state law prohibits you from making any further disclosure of the information without the specific written consent of the person to whom it pertains, or as otherwise permitted by law. A general authorization for the release of medical or other information is NOT sufficient for this purpose. For additional information please refer to http://Cartavi.Meal Ticket/faq/WCS050 (This link is being provided for informational/ educational purposes only.) The performance of this assay has not been clinically validated in patients less than 2 years old. 07/12/2021 10:1 7 AM EDT us Key Rodríguez MD LAB BLOOD ORDERABLES Final Re sult [facility] [address] from Last 3 Months or Most Recently Relevant to Health Maintenance Insurance FOR[facility]LY [facility] < [address] [facility] MEDICAID STAND ADULT Care Teams Supervisor Nurse Relationship Specialty Start Date End Date Key Rodríguez MD [address] [facility] [place] [address] PCP - General Family Medicine 09/23/18
--- OUTSIDE RECORDS SUMMARY | 2025-05-27 13:29 | XMS_ITS | Encounter Summary ---
Author Organization [employer] Address [address] [facility] [address] [place] [address] Care Team Providers Care Bootmaker Hand Name Role Phone Key Rodríguez MD Primary Care Provider [phone] Reason for Visit * Reason Onset Date Comments Covid-19 Testing 10/01/2023 Patient 2 of 2 Encounter Details Date Type Department Care Team ([facility] st Contact Info) Description 10/01/2023 Telephone [facility] [address] [place] [address] Key Rodríguez MD [address] [place] [address] Covid-19 Testing (Patient 2 of 2) Social [...] the rapid home covid tests available at [facility] because her son got a false negative result on that test the same day he later tested positive for covid at our [facility] office. Patient's son scheduled for f/u with [...] coming into the office. Routing back to [facility] nurses to evaluate priority for SDC appointment [...] Description 05/31/2025 9:00 AM EDT Office Visit [facility] [address] [place] [address] Rohit Fairchild 07/27/2025 9:00 AM EST Office Visit [facility] [address] [place] [address] Key Rodríguez MD [address] [place] [address] documented as of this encounter Visit Diagnoses Not on filedocumented in this encounter Additional Health Concerns Assessment Noted Time PHQ-9 Depression Total Score: 4 08/12/20 23 1:51 PM EST documented as of this encounter Care Teams Bootmaker Hand Relationship Specialty Start Date End Date Key Rodríguez MD [address] [place] [address] PCP - General Family Medicine 09/23/18 documented as of this encounter
--- OUTSIDE RECORDS SUMMARY | 2025-05-27 13:29 | XMS_ITS | Encounter Summary ---
Author Organization [employer] Address [address] [facility] [address] [place] [address] Care Team Providers Care Automatic Furnace Operator Name Role Phone Key Rodríguez MD Primary Care Provider [phone] Encounter Details Date Type Department Care Team ([facility] Contact Info) Description 02/05/2023 Orders Only [facility] [address] [place], [place] [phone] Jacki Steen LPN Social History Tobacco Use [...] Description 05/31/2025 9:00 AM EDT Office Visit [facility] [address] [place] [address] Rohit Fairchild 07/27/2025 9:00 AM EST Office Visit [facility] [address] [place], [place] [phone] Key Rodríguez MD [address] [place] [address] documented as of this encounter Visit Diagnoses Not on filedocumented in this encounter Additional Health Concerns Assessment Noted Time PHQ-9 Depression Total Score: 12 023 11:24 AM EDT documented as of this encounter Care Teams Automatic Furnace Operator Relationship Specialty Start Date End Date Key Rodríguez MD [address] [place] [address] PCP - General Family Medicine 09/23/18 documented as of this encounter
--- OUTSIDE RECORDS SUMMARY | 2025-05-27 13:29 | XMS_ITS | Encounter Summary ---
Author Organization [employer] Address 75 [facility] 7t [place] [address] Care Team Providers Care Inventory Worker Name Role Phone Key Rodríguez MD Primary Care Provider [phone] Reason for Visit * Reason Onset Date Comments Appointment 11/06/2023 [facility] Encounter Details Date Type Department Care Team (Late st Contact Info) Description 10/29/2023 Refill [facility] MEDICINE [address] [place] [address] Adarsh Booth FNP Bipolar affective disorder, remission status unspecified ([facility]) Social History Tobacco Use Types Packs/Day [...] Psych prescriber & still interested in seeing [employer]-Adarsh Booth. documented in this encounter Plan of Treatment Upcoming Encounters Date Type Department Care Team (Late st Contact Info) Description 05/31/2025 9:00 AM EDT Office Visit [facility] ADULT DENTAL [address] [place] [address] Rohit Fairchild 07/27/2025 9:00 AM EST Office Visit [facility] MED & PEDS [address] [place] [address] Key Rodríguez MD [address] [place] [address] documented as of this encounter Visit Diagnoses Diagnosis Bipolar affective disorder, remission status unspecified ([facility]) documented in this encounter Additional Health Concerns Assessment Noted Time PHQ-9 Depression Total Score: 4 08/12/20 23 1:51 PM EST documented as of this encounter Care Teams Inventory Worker Relationship Specialty Start Date End Date Key Rodríguez MD [address] [place] [address] PCP - General Family Medicine 09/23/18 documented as of this encounter
--- OUTSIDE RECORDS SUMMARY | 2025-05-27 13:29 | XMS_ITS | Encounter Summary ---
Author Organization [employer] Address 75 [facility] 7 [place] [address] Care Team Providers Care Picker Name Role Phone Key Rodríguez MD Primary Care Provider [phone] Reason for Visit * Reason Onset Date Comments Med Refill 05/25/2025 Encounter Details Date Type Department Care Team (Late st Contact Info) Description 05/25/2025 Refill [facility] MEDICINE [address] [place] [address] Key Rodríguez MD [address] [place] [address] Social History Tobacco Use Types Packs/Day Years [...] encounter Miscellaneous Notes * Telephone Encounter - Sophia Marin LPN - 05/25/2025 3:18 PM EDT Last seen 05/12/25. * Telephone Encounter - Ken Sung - 05/25/2025 3:13 PM EDT TC from pt requesting medication refill. Medications needing refill: cloNIDine (Catapres) 0.1 MG tablet To be sent to: [id number] [place], [place] - [address] [place] [address] AT [facility] documented in this encounter Plan of Treatment Upcoming Encounters Date Type Department Care Team ([facility] st Contact Info) Description 05/31/2025 9:00 AM EDT Office Visit [facility] ADULT DENTAL [address] [place] [address] Rohit Fairchild 07/27/2025 9:00 AM EST Office Visit [facility] MED & PEDS [address] [place] [address] Key Rodríguez MD [address] [place] [address] documented as of this encounter Visit Diagnoses Not on filedocumented in this encounter Additional Health Concerns Assessment Noted Time PHQ-9 Depression Total Score: 9 03/03/20 24 3:00 PM EDT documented as of this encounter Care Teams Picker Relationship Specialty Start Date End Date Key Rodríguez MD [address] [place] [address] PCP - General Family Medicine 09/23/18 documented as of this encounter
--- OUTSIDE RECORDS SUMMARY | 2025-05-27 13:29 | XMS_ITS | Encounter Summary ---
Author Organization [employer] Address 75 [facility] 7 [place] [address] Care Team Providers Care Communication Spec Name Role Phone Key Rodríguez MD Primary Care Provider [phone] Reason for Visit * Reason Onset Date Comments Med Refill 05/25/2025 Encounter Details Date Type Department Care Team ([facility] st Contact Info) Description 05/25/2025 Telephone [facility] MEDICINE [address] [place] [address] Key Rodríguez MD [address] [place] [address] Med Refill Social History Tobacco Use Types [...] encounter Miscellaneous Notes * Telephone Encounter - Ken Sung - 05/25/2025 3:13 PM EDT Tc from pt requesting a call back to clarify on a medication. Please contact pt at [phone]. documented in this encounter Plan of Treatment Upcoming Encounters Date Type Department Care Team ([facility] st Contact Info) Description 05/31/2025 9:00 AM EDT Office Visit [facility] ADULT D[facility]AL [address] [place] [address] Rohit Fairchild 07/27/2025 9:00 AM EST Office Visit [facility] MED & PEDS [address] [place] [address] Key Rodríguez MD [address] [place] [address] documented as of this encounter Visit Diagnoses Not on filedocumented in this encounter Additional Health Concerns Assessment Noted Time PHQ-9 Depression Total Score: 9 03/03/20 24 3:00 PM EDT documented as of this encounter Care Teams Communication Spec Relationship Specialty Start Date End Date Key Rodríguez MD [address] [place] [address] PCP - General Family Medicine 09/23/18 documented as of this encounter
--- OUTSIDE RECORDS SUMMARY | 2025-05-27 13:29 | XMS_ITS | Encounter Summary ---
Author Organization [email or web address] Address 75 [facility] 7 [place] [address] Care Team Providers Care Employee Relations Consultant Name Role Phone Key Rodríguez MD Primary Care Provider [phone] Reason for Visit * Reason Onset Date Comments Nurse Triage 05/25/2025 Encounter Details Date Type Department Care Team ([facility] st Contact Info) Description 05/25/2025 Telephone [facility] MED & PEDS [address] [place] [address] Key Rodríguez MD [address] [place] [address] Nurse Triage Social History Tobacco Use Types Packs/Day Years [...] encounter Miscellaneous Notes * Telephone Encounter - Yee Campos RN - 05/25/2025 9:15 AM EDT Called pt. She states that PCP sent her a medication and since she was put on a new medication she has been leaking milk from her breasts. Pt. States that she never even produced milk when she was years ago. Pt. States her breasts have been sore x 3 days and she has breast milk leaking from her breasts. Pt. States she has Hx. Of tubal ligation and is also receiving the Depo injection. Pt. Denies any thoughts of and wants to see PCP. Protocol Used: Breast Symptoms (Adult) Protocol-Based Disposition: See in Office or Video Visit within 3 Days- appt. Scheduled for 05/27/25 at 1115am with PCP. Positive Triage Questions: * Patient wants to be seen * Nipple discharge and not bloody (e.g., clear, white, yellow, brown, green) * Breast pain and cause is not known * All higher-acuity triage questions were negative * Telephone Encounter - Beny Cornejo - 05/25/2025 8:53 AM EDT Tc from pt inquiring why she is lactating when her son is 9 years old, her tubes are tied and she got the depo shot. Contact pt at [phone] documented in this encounter Plan of Treatment Upcoming Encounters Date Type Department Care Team (Late st Contact Info) Description 05/31/2025 9:00 AM EDT Office Visit [facility] ADULT DENTAL [address] [place] [address] Rohit Fairchild 07/27/2025 9:00 AM EST Office Visit [facility] MED & PEDS [address] [place] [address] Key Rodríguez MD [address] [place] [address] documented as of this encounter Visit Diagnoses Not on filedocumented in this encounter Additional Health Concerns Assessment Noted Time PHQ-9 Depression Total Score: 9 03/03/20 24 3:00 PM EDT documented as of this encounter Care Teams Employee Relations Consultant Relationship Specialty Start Date End Date Key Rodríguez MD [address] [place] [address] PCP - General Family Medicine 09/23/18 documented as of this encounter
--- OUTSIDE RECORDS SUMMARY | 2025-05-27 13:29 | XMS_ITS | Encounter Summary ---
Author Organization [employer] Address 75 [facility] 7t [place] [address] Care Team Providers Care Freight Brake Operator Name Role Phone Key Rodríguez MD Primary Care Provider [phone] Reason for Visit * Reason Comments Med Refill Encounter Details Date Type Department Care Team ([facility] Contact Info) Description 02/05/2023 Refill [facility] MED & PEDS [address] [place] [address] Key Rodríguez MD [address] [place] [address] Social History Tobacco Use Types Packs/Day Years [...] Upcoming Encounters Date Type Department Care Team ([facility] Contact Info) Description 05/31/2025 9:00 AM EDT Office Visit [facility] ADULT DENTAL [address] [place] [address] Rohit Fairchild 07/27/2025 9:00 AM EST Office Visit [facility] MED & PEDS [address] [place] [address] Key Rodríguez MD [address] [place] [address] documented as of this encounter Visit Diagnoses Not on filedocumented in this encounter Additional Health Concerns Assessment Noted Time PHQ-9 Depression Total Score: 12 023 11:24 AM EDT documented as of this encounter Care Teams Freight Brake Operator Relationship Specialty Start Date End Date Key Rodríguez MD [address] [place] [address] PCP - General Family Medicine 09/23/18 documented as of this encounter
--- OUTSIDE RECORDS SUMMARY | 2025-05-27 13:29 | XMS_ITS | Encounter Summary ---
Author Organization [employer] Address 75 [facility] 7 [place] [address] Care Team Providers Care Administrative Appeals Tribunal Member Name Role Phone Key Rodríguez MD Primary Care Provider [phone] Reason for Visit * Reason Onset Date Comments Call Back Request 03/31/2025 Encounter Details Date Type Department Care Team ([facility] st Contact Info) Description 03/31/2025 Telephone [facility] MEDICINE [address] [place] [address] Key Rodríguez MD [address] [place] [address] Call Back Request Social History Tobacco Use Types Packs/Day Years [...] encounter Miscellaneous Notes * Telephone Encounter - Tony Sanabria - 03/31/2025 9:51 AM EDT Pt returning pcp Dr Rodríguez call . documented in this encounter Plan of Treatment Upcoming Encounters Date Type Department Care Team ([facility] st Contact Info) Description 05/31/2025 9:00 AM EDT Office Visit [facility] ADULT DENTAL [address] [place] [address] Rohit Fairchild 07/27/2025 9:00 AM EST Office Visit [facility] MED & PEDS [address] [place] [address] Key Rodríguez MD [address] [place] [address] documented as of this encounter Visit Diagnoses Not on filedocumented in this encounter Additional Health Concerns Assessment Noted Time PHQ-9 Depression Total Score: 9 03/03/20 24 3:00 PM EDT documented as of this encounter Care Teams Administrative Appeals Tribunal Member Relationship Specialty Start Date End Date Key Rodríguez MD [address] [place] [address] PCP - General Family Medicine 09/23/18 documented as of this encounter
--- OUTSIDE RECORDS SUMMARY | 2025-05-27 13:29 | XMS_ITS | Encounter Summary ---
Author Organization [employer] Address 75 [facility] [address] [place] [address] Care Team Providers Care Rim Fire Priming Operator Name Role Phone Key Rodríguez MD Primary Care Provider [phone] Encounter Details Date Type Department Care Team (Latest Contact Info) Description 05/27/2025 Travel Social History Tobacco Use Types Packs/Day [...] 05/31/2025 9:00 AM EDT Office Visit [facility] ADULT DENTAL [address] [place] [address] Rohit Fairchild 07/27/2025 9:00 AM EST Office Visit [facility] MED & PEDS [address] [place], [place] [id number] Key Rodríguez MD [address] [place] [address] documented as of this encounter Visit Diagnoses Not on filedocumented in this encounter Additional Health Concerns Assessment Noted Time PHQ-9 Depression Total Score: 9 03/03/20 24 3:00 PM EDT documented as of this encounter Care Teams Rim Fire Priming Operator Relationship Specialty Start Date End Date Key Rodríguez MD 505 [facility] [place] [address] PCP - General Family Medicine 09/23/18 documented as of this encounter
--- OUTSIDE RECORDS SUMMARY | 2025-05-27 13:29 | XMS_ITS | Encounter Summary ---
Author Organization [employer] Address 75 [facility] 7 [place] [address] Care Team Providers Care Nursing Service Administrator Name Role Phone Key Rodríguez MD Primary Care Provider [phone] Reason for Visit * Reason Onset Date Comments Med Refill 12/02/2023 Encounter Details Date Type Department Care Team ([facility] st Contact Info) Description 12/02/2023 Telephone [facility] MEDICINE [address] [place] [address] Key Rodríguez MD [address] [place] [address] Med Refill Social History Tobacco Use Types [...] Not at all 12/02/2023 11:23 AM Ayanna Meaz [place] Feeling tired or having little energy [...] Description 05/31/2025 9:00 AM EDT Office Visit [facility] ADULT DENTAL [address] [place] [address] Rohit Fairchild 07/27/2025 9:00 AM EST Office Visit [facility] MED & PEDS [address] [place] [address] Key Rodríguez MD [address] [place] [address] documented as of this encounter Visit Diagnoses Not on filedocumented in this encounter Additional Health Concerns Assessment Noted Time PHQ-9 Depression Total Score: 3 12/02/19 24 11:23 AM EDT documented as of this encounter Care Teams Nursing Service Administrator Relationship Specialty Start Date End Date Key Rodríguez MD [address] [place] [address] PCP - General Family Medicine 09/23/18 documented as of this encounter
--- OUTSIDE RECORDS SUMMARY | 2025-05-27 13:29 | XMS_ITS | Encounter Summary ---
Author Organization [facility] Address 75 [facility] [address], [place] [address] Care Team Providers Care Lacing Cutter Name Role Phone Key Rodríguez MD Primary Care Provider [phone] Encounter Details Date Type Department Care Team (Latest Contact Info) Description 01/20/2019 Abstract [facility] CONVERSIONS Dental, Provider, DDS Social History Tobacco [...] AM EDT Office Visit [facility] ADULT DENTAL [address] [place] [address] Rohit Fairchild 07/27/2025 9:00 AM EST Office Visit [facility] MED & PEDS [address] [place] [address] Key Rodríguez MD [address] [place] [address] documented as of this encounter Visit Diagnoses Not on filedocumented in this encounter Care Teams Lacing Cutter Relationship Specialty Start Date End Date Key Rodríguez MD [address] [place] [address] PCP - General Family Medicine 09/23/18 documented as of this encounter
--- OUTSIDE RECORDS SUMMARY | 2025-05-27 13:29 | XMS_ITS | Encounter Summary ---
Author Organization [employer] Address 75 [facility] 7 [place] [address] Care Team Providers Care Geomorphology Teacher Name Role Phone Key Rodríguez MD Primary Care Provider [phone] Reason for Visit * Reason Onset Date Comments Durable Medical Equipment 11/05/2024 Encounter Details Date Type Department Care Team ([facility] st Contact Info) Description 11/05/2024 Telephone [facility] MEDICINE [address] [place] [address] Key Rodríguez MD [address] [place] [address] Durable Medical Equipment Social History Tobacco Use [...] ines. Pt is requesting a call back [phone] * Telephone Encounter - Vijay Barriga - 11/05/2024 10:41 AM EST Tc from pt requesting compression socks to be sent to ines. Pt is requesting a call back [phone] documented in this encounter Plan of Treatment Upcoming Encounters Date Type Department Care Team (Late st Contact Info) Description 05/31/2025 9:00 AM EDT Office Visit [facility] ADULT DENTAL [address] [place] [address] Rohit Fairchild 07/27/2025 9:00 AM EST Office Visit [facility] MED & PEDS [address] [place] [address] Key Rodríguez MD [address] [place] [address] documented as of this encounter Visit Diagnoses Not on filedocumented in this encounter Additional Health Concerns Assessment Noted Time PHQ-9 Depression Total Score: 9 03/03/20 24 3:00 PM EDT documented as of this encounter Care Teams Geomorphology Teacher Relationship Specialty Start Date End Date Key Rodríguez MD [address] [place] [address] PCP - General Family Medicine 09/23/18 documented as of this encounter
--- OUTSIDE RECORDS SUMMARY | 2025-05-27 13:29 | XMS_ITS | Encounter Summary ---
Author Organization [employer] Address 75 [facility] 7t [place] [address] Care Team Providers Care Clinical Researcher Name Role Phone Key Rodríguez MD Primary Care Provider [phone] Reason for Visit * Reason Comments Med Refill Encounter Details Date Type Department Care Team ([facility] Contact Info) Description 02/19/2023 Refill [facility] MED & PEDS [address] [place] [address] Key Rodríguez MD [address] [place] [address] Social History Tobacco Use Types Packs/Day Years [...] Upcoming Encounters Date Type Department Care Team ([facility] Contact Info) Description 05/31/2025 9:00 AM EDT Office Visit [facility] ADULT DENTAL [address] [place] [address] Rohit Fairchild 07/27/2025 9:00 AM EST Office Visit [facility] MED & PEDS [address] [place] [address] Key Rodríguez MD [address] [place] [address] documented as of this encounter Visit Diagnoses Not on filedocumented in this encounter Additional Health Concerns Assessment Noted Time PHQ-9 Depression Total Score: 13 023 3:00 PM EDT documented as of this encounter Care Teams Clinical Researcher Relationship Specialty Start Date End Date Key Rodríguez MD [address] [place] [address] PCP - General Family Medicine 09/23/18 documented as of this encounter
--- OUTSIDE RECORDS SUMMARY | 2025-05-27 13:29 | XMS_ITS | Encounter Summary ---
Author Organization [employer] Address [address] [facility] [address] [place] [address] Care Team Providers Care Truck Driver Rubbish Collector Name Role Phone Key Rodríguez MD Primary Care Provider [phone] Encounter Details Date Type Department Care Team (Late st Contact Info) Description 02/05/2024 Telephone [facility] ADULT DENTAL [address] [place] [address] Jason Duran, DMD [address] [place] [address] Social History Tobacco Use Types Packs/Day Years [...] Patient insurance could not pay for tuff [employer] insurance says if u send the regular [...] 9:00 AM EDT Office Visit [facility] ADULT DENTAL [address] [place] [address] Rohit Fairchild 07/27/2025 9:00 AM EST Office Visit [facility] MED & PEDS [address] [place] [address] Key Rodríguez MD [address] [place] [address] documented as of this encounter Visit Diagnoses Not on filedocumented in this encounter Additional Health Concerns Assessment Noted Time PHQ-9 Depression Total Score: 3 12/02/19 24 11:23 AM EDT documented as of this encounter Care Teams Truck Driver Rubbish Collector Relationship Specialty Start Date End Date Key Rodríguez MD [address] [place] [address] PCP - General Family Medicine 09/23/18 documented as of this encounter
== END 2025-05-27 11:51 | disposition home or self-care (01) ==
LOC: HO.CHCLDS 11:50
PROVIDERS: Visit Provider Pediatrics
DX: N64.3 Galactorrhea not associated with childbirth (principal)
CPT/HCPCS: 36415; 84146; 84443

== ENCOUNTER 2025-06-02 14:07 | Outpatient (REF) | payer OTHER, SELFPAY ==
--- OUTSIDE RECORDS SUMMARY | 2025-06-02 14:15 | XMS_ITS | Encounter Summary ---
Author Organization [employer] Address [address] [place] [address] Care Team Providers Care Verifying Specialist Name Role Phone Key Rodríguez MD Primary Care Provider [phone] Reason for Visit * Reason Comments Contraception Encounter Details Date Type Department Care Team (Latest Contact Info) Description 06/02/2025 2:15 PM EDT Clinical Support [facility] [address] [place] [address] Nay Benoit, CODIE Encounter for surveillance of injectable contraceptive Social History Tobacco Use Types Packs/Day Years [...] AM EDT documented as of this encounter Progress Notes * Nay Benoit RN - 06/02/2025 2:15 PM EDT SUBJECTIVE: Scott Miner is a 49 y.o. year old female who presents for Contraception Preferred language for medical information: [employer] Machinist needed: No Scott Miner denies significant side effects from last injection. Standing order verified, last placed on 06/01/2025. Cat dander, Dust mite extract, Shellfish allergy, Zolpidem, and Latex Immunization History Administered Date(s) Administered Influenza injectable quadrivalent IIV4 with preservative 06/29/2016, 08/07/2018, 05/30/2023 Influenza injectable quadrivalent preservative free 07/11/2017, 06/25/2019, 06/21/2020, 07/12/2021,07/27/2022 Influenza, Split (incl. purified surface antigen) 06/11/2012, 08/03/2013 Influenza, seasonal, injectable, preservative free 06/09/2015 MMR 02/22/2014 Moderna Covid-19 Vaccine 12+ 02/08/2021, 03/08/2021 Pfizer Covid-19 Vaccine 12+ Bivalent 07/05/2022 Tdap 02/24/2014 OBJECTIVE: No LMP recorded. There were no vitals filed for this visit. Lab Results Component Value Date PREGTESTUR Negative 09/24/2024 No results found for: RAPIDCHGONTR , GONORRHOEAEP , TRICHOMONASR Lab Results Component Value Date CTPCR NOT DETECTED 05/06/2023 NGPCR NOT DETECTED 05/06/2023 Tobacco Use History[1] Contraception counseling provided: Yes I emphasized that switching methods is common, and that they can discontinue using any method at any time. After today's discussion, they would like to continue to use Depo. We discussed correct method use and indications for emergency contraceptive use. They can follow up at any time to discuss their contraceptive options, side effects they're experiencing, or to switch methods. Depo-Provera 150 mg/ml administered intramuscularly to: Left ventrogluteal. Medication was tolerated well. Scott is also stating that she has been using the same compression stocking prescribed a year ago and is requesting a new prescription for new stockings to provide adequate compression to preventedema. Advised will notify provider to review. EDUCATION: The following side effects/prevention education were reviewed with Scott Miner and they confirmed understanding Spotting Headache Weight gain Hair loss Mood changes Proper condom use Risk reduction behavior ASSESSMENT: Contraceptive Management PLAN: Scott Miner scheduled for next Depo-Provera administration with team nurse in 12 weeks. Labs ordered: Yes. Scott Miner agreeable to plan. Future Appointments Date Time Provider Department Center 06/07/2025 11:00 AM Rohit Fairchild [facility] 07/27/2025 9:00 AM Key Rodríguez MD [facility] Nay Benoit RN [1] Social History Tobacco Use Smoking Status Never Passive exposure: Never Smokeless Tobacco Never documented in this encounter Plan of Treatment Upcoming Encounters Date Type Department Care Team (Late st Contact Info) Description 06/07/2025 11:00 AM EDT Office Visit [facility] ADULT DENTAL [address] [place] [address] Rohit Fairchild 07/27/2025 9:00 AM EST Office Visit [facility] [address] [place] [address] Key Rodríguez MD [address] [place] [address] 08/30/2025 9:30 AM EST Clinical Support [facility] [address] [place] [address] documented as of this encounter Procedures Procedure Name Priority Date/Time Associated Diagnosis Comments POCT , URINE Routine 06/02/2025 3:18 PM EDT Encounter for surveillance of injectable contraceptive documented in this encounter Results * POCT Urine (06/02/2025 3:18 PM EDT) Preg Test, Ur Negative Negative, Indeterminate, None Detected, Invalid, Specimen unsatisfactory for evaluation, Weakly Positive, 2+ Urine 06/02/2025 3:18 PM EDT Key Rodríguez MD POINT OF CARE TEST ENTER/EDIT ORDERABLES Final Result documented in this encounter Visit Diagnoses Diagnosis Encounter for surveillance of injectable contraceptive documented in this encounter Administered Medications Inactive Administered Medications - up to 3 most recent administrations Medication Order MAR Action Action Date Dose Rate Site medroxyPROGESTERone (Depo-Provera) injection 150 mg 150 mg, Intramuscular, Once, On Sat06/02/25 at 1445, For 1 doseIndications:Encounter for surveillance of injectable contraceptive Given 06/02/2025 2:45 PM EDT 150 mg Left Ventrogluteal documented in this encounter Additional Health Concerns Assessment Noted Time PHQ-9 Depression Total Score: 9 03/03/20 24 3:00 PM EDT documented as of this encounter Care Teams Verifying Specialist Relationship Specialty Start Date End Date Key Rodríguez MD [address] [place] [phone] PCP - General Family Medicine 09/23/18 documented as of this encounter
--- OUTSIDE RECORDS SUMMARY | 2025-06-02 17:20 | XMS_ITS | Encounter Summary ---
Author Organization [employer] Address [address] [place] [address] Care Team Providers Care Stitchdowns Toe Former Name Role Phone Key Rodríguez MD Primary Care Provider [phone] Reason for Visit * Reason Comments Recovery Supports Encounter Details Date Type Department Care Team ([facility] st Contact Info) Description 05/31/2025 Patient Outreach [facility] MED[facility] [address] [place] [id number] Concha Warren Recovery Supports Social History Tobacco Use Types Packs/Day Years [...] as of this encounter Progress Notes * Concha Warren - 05/31/2025 3:15 PM EDT I met with Scott today. Setting: in person at [facility] Recovery Wellness Goals worked on: Social Stability Action taken/next steps: Attended alcohol and drug free activity Additional comments: Concha Warren documented in this encounter Plan of Treatment Upcoming Encounters Date Type Department Care Team (Late st Contact Info) Description 06/07/2025 11:00 AM EDT Office Visit [facility] ADULT DENTAL [address] [place] [address] Rohit Fairchild 07/27/2025 9:00 AM EST Office Visit [facility] MED & PEDS [address] [place] [address] Key Rodríguez MD [address] [place] [address] 08/30/2025 9:30 AM EST Clinical Support [facility] MED [facility]ED[facility] [address] [place] [address] documented as of this encounter Visit Diagnoses Not on filedocumented in this encounter Additional Health Concerns Assessment Noted Time PHQ-9 Depression Total Score: 9 03/03/20 24 3:00 PM EDT documented as of this encounter Care Teams Stitchdowns Toe Former Relationship Specialty Start Date End Date Key Rodríguez MD [address] [place] [address] PCP - General Family Medicine 09/23/18 documented as of this encounter
--- OUTSIDE RECORDS SUMMARY | 2025-06-02 17:20 | XMS_ITS | Clinical Summary ---
Author Organization [employer] Address [address] [facility] [address] [place] [address] Care Team Providers Care Customer Pricing Manager Name Role Phone Key Rodríguez MD Primary Care Provider [phone] Allergies Active Allergy Reactions Criticality Noted Date [...] 016 Active ergocalciferol (Vitamin D2) 1.25 MG (61643 UT) capsuleIndications :Vitamin D deficiency TAKE 1 [...] 1.1-5 % pasteIndications:D entin hypersensitivity,D ental caries Dupo teeth for 2 minutes, morning and night. Spit, do not rinse. Do not eat or drink anything for 30 minutes following brushing. 112 g 3 024 Active Sod Fluoride-Potassium Nitrate 1.1-5 % pasteIndications:D entin hypersensitivity Dupo teeth for 2 minutes, morning and night. [...] MOUTH EVERY DAY 90 tablet 3 Active naltrexone (Depade) 50 MG tablet Take [...] NOT CRUSH OR CHEW 90 capsule 1 Active topiramate (Topamax) 100 MG tabletIndications: Bipolar affective disorder, remission status unspecified (CMS/HCC) TAKE 1 TABLET BY MOUTH TWICE A DAY. TAKE WITH TOPIRAMATE 50 MG TWICE DAILY. 180 tablet 3 Active topiramate 50 MG tablet TAKE 1 TABLET BY MOUTH TWICE A DAY. TAKE WITH TOPIRAMATE 100 MG TWICE DAILY. 180 tablet 3 Active cloNIDine (Catapres) 0.1 MG tablet TAKE 1 TABLET BY MOUTH TWICE DAILY 60 tablet 1 Active acetaminophen-code ine (Tylenol w/ Codeine #3) 300-30 MG tablet TAKE 1 TABLET BY MOUTH EVERY 6 HOURS FOR UP TO 10 DAYS NEEDED FOR SEVERE PAIN Active hydrOXYzine pamoate (Vistaril) 25 MG capsule Active medroxyPROGESTERon e (Depo-Provera) 150 MG/ML injectionIndicatio ns:Uses control Inject 1 mL (150 mg) into the muscle every 3 (three) months. 1 mL 3 Active topiramate 50 MG tablet Take 50 [...] Reorder (will not trigger notification to Pharmacy)) medroxyPROGESTERon e (Depo-Provera) 150 MG/ML injectionIndicatio ns:Uses control BRING TO OFFICE FOR ADMINISTRATION EVERY THREE MONTHS 1 mL 3 025 05/31 Discontinued( Reorder (will not trigger notification to Pharmacy)) Hospital, Clinic, or Other Facility Administered Medication Ordered Dose Route Frequency Start Date End Date Status medroxyPROGESTERone (Depo-Provera) injection 150 mgIndications:Encounter for surveillance of injectable contraceptive 150 mg IM Once 12/10/2024 Active medroxyPROGESTERone (Depo-Provera) injection 150 mgIndications:Encounter for surveillance of injectable contraceptive 150 mg IM Once 06/02/2025 06/02/2025 Ended Active Problems Problem Noted Date Diagnosed Date [...] She lost care from therapy services with [facility], and missed appts with Adarsh Hansen for psychopharmacology. Recent in the family has increased sxs. Pt is looking to reconnect with services. PLAN: (check all that apply) Behavioral Health Integration Plan Internal Cold handoff internal psychiatric provider External [facility] self-referred for OP individual therapy and psychiatry services with [facility]. Patient Self Plan Patient to utilize skills provided in intervention , Patient to reach out to [facility] team as needed, Comply with medication , Patient to engage in OP therapy , and Patient to reach out to [facility] as needed. Message sent to Ayanna Long to discuss options to book psych appointment with Adarsh. Pt missed psychopharmacology appt on 02/18. Information given for the [facility] program/intake with [facility]. Assessment & Plan (12/02/2023 12:04 PM EDT): Presented with hallucinations, anger and explosive personality elements, ?PTSD. [place] was previously helpful, but developed tremor of hands and lips when took [place] consistently at 300 mg 2 daily. She [...] hallucinations, anger and explosive personality elements, ?PTSD. [place] was previously helpful, but developed tremor of hands and lips when took [place] consistently at 300 mg 2 daily. She [...] hallucinations, anger and explosive personality elements, ?PTSD. [place] was previously helpful, but developed tremor of hands and lips when took [place] consistently at 300 mg 2 daily. She [...] hallucinations, anger and explosive personality elements, ?PTSD. King George was previously helpful, but developed tremor of hands and lips when took [place] consistently at 300 mg 2 daily. She [...] hallucinations, anger and explosive personality elements, ?PTSD. [place] George was previously helpful, but developed tremor of hands and lips when took [place] consistently at 300 mg 2 daily. She [...] hallucinations, anger and explosive personality elements, ?PTSD. [place] George was previously helpful, but developed tremor of hands and lips when took [place] consistently at 300 mg 2 daily. She is on Depo Provera, with regular follow up, so at very low risk of unintended . Doing much better with Topiramate 100 mg BID. F/U with therapist as usual and F/U with me in 6 weeks. She agrees with the plan. Assessment & Plan (10/01/2022 11:35 AM EST): with hallucinations, anger and explosive personality elements, ?PTSD. [place] George was previously helpful, but developed tremor of hands and lips when took [place] consistently at 300 mg 2 daily. She [...] Encounters Date Type Department Care Team Description 06/02/2025 2:15 PM EDT Clinical Support [facility] [address] [place] [address] Nay Benoit, CODIE Encounter for surveillance of injectable contraceptive 06/02/2025 Travel 06/01/2025 Telephone [facility] [address] [place] [address] Key Rodríguez MD Lab Orders 05/31/2025 Patient Outreach [facility] [address] [place] [phone] Concha Warren Recovery Supports 05/31/2025 Refill [facility] [address] [place] [address] Key Rodríguez MD Uses control 05/28/2025 Telephone [facility] [address] [place] [address] Key Rodríguez MD Care Coordination 05/28/2025 Orders Only [facility] [address] [place] [address] Key Rodríguez MD Galactorrhea (Primary Dx) 05/28/2025 Results Follow-Up [facility] [address] [place] [address] Key Rodríguez MD Prolactin, TSH W/Reflex to FT4 05/27/2025 11:15 AM EDT Office Visit [facility] [address] [place] [address] Key Rodríguez MD Galactorrhea (Primary Dx); Breast cancer screening by mammogram; Alcohol use disorder 05/27/2025 Travel 05/25/2025 Refill [facility] [address] [place] [address] Key Rodríguez MD 05/25/2025 Telephone [facility] [address] [place] [address] Key Rodríguez MD Med Refill 05/25/2025 Telephone [facility] [address] [place] [address] Key Rodríguez MD Nurse Triage 05/17/2025 Patient Outreach [address] [address] Melvin Magaña Recovery Supports 05/15/2025 Refill [facility] [address] [place] [address] Key Rodríguez MD Bipolar affective disorder, remission status unspecified (CMS/HCC) 05/12/2025 9:15 AM EDT Office Visit [facility] [address] [place] [address] Key Rodríguez MD Alcohol use disorder (Primary Dx); Alcohol withdrawal syndrome with complication (CMS/HCC) 05/12/2025 Travel 05/12/2025 Telephone [facility] [address] [place] [address] Key Rodríguez MD chart prep 05/11/2025 Telephone [facility] [address] [place] [address] Key Rodríguez MD 04/09/2025 Telephone [facility] [address] [place] [address] Key Rodríguez MD No Show 03/31/2025 Orders Only [facility] [address] [place] [address] Key Rodríguez MD Coccyx pain (Primary Dx) 03/31/[address] [address] Key Rodríguez MD Call Back Request 03/30/2025 Refill [facility] [address] [place] [address] Key Rodríguez MD Coccyx pain 03/24/2025 10:40 AM EDT Office Visit [facility] [address] [place] [phone] Shayan Clemente MD Rash (Primary Dx); Elevated [...] [facility] [address] [place] [address] Rohit Fairchild 07/27/2025 9:00 AM EST Office Visit [facility] [address] [place] [address] Key Rodríguez MD [address] [place] [address] 08/30/2025 9:30 AM EST Clinical Support [facility] [address] [place] [address] Health Maintenance Due Date Last Done Comments [...] , 07/27/2022, 07/12/2021, Additional history exists FOBT 06/18/2025 06/18/2024, 06/12/2024 Family Planning (PISQ) 09/24/2025 09/24/2024 Tobacco [...] EDT Encounter for surveillance of injectable contraceptive TSH W/REFLEX TO FT4 Routine 05/27/2025 1 1:52 AM EDT Galactorrhea PROLACTIN Routine 05/27/2025 11:52 AM EDT Galactorrhea HM FIT DNA/COLOGUARD CANCER SCREENING Routine 06/18/2024 [...] Relevant to Health Maintenance Results * POCT Urine (06/02/2025 3:18 PM EDT) Preg Test, Ur Negative Negative, Indeterminate, None Detected, Invalid, Specimen unsatisfactory for evaluation, Weakly Positive, 2+ Urine 06/02/2025 3:18 PM EDT us Key Rodríguez MD POINT OF CARE TEST ENTER/EDIT ORDERABLES Final Result * TSH W/Reflex to FT4 (05/27/2025 11:52 AM EDT) TSH reflex Free T4 1.59 0.32 - 4.0 uIU/mL [facility] Blood Venous blood specimen / Unknown 05/27/2025 11:52 AM EDT 05/27/2025 1:57 PM EDT us Key Rodríguez MD LAB BLOOD ORDERABLES Final Re sult [facility] [address] [place] [address] [phone] * Prolactin (05/27/2025 11:52 AM EDT) Prolactin 12.4 ng/mL [facility] Comment:Reference Range Fema les Non- 3.0-30.0 10.0-209.0 Postmenopausal 2.0-20.0THIS TEST WAS PERFORMED AT:[facility] [place] [id number] SEARS MD Blood Venous blood specimen / Unknown 05/27/2025 11:52 AM EDT 05/27/2025 1:57 PM EDT Key Rodríguez MD LAB BLOOD ORDERABLES Final Re sult Performing Organization Address [facility] Co de Phone Number [facility] [address] [place] [phone] * FIT DNA/Cologuard Cancer Screening (06/18/2024) Pathologist [facility] Cologuard Cancer Screen Negative Stool us Key Rodríguez MD HEALTH MAINTENANCE Final Resu lt * (ABNORMAL) THINPREP TIS PAP AND HPV mRNA E6/E7, CT/NG, TRICH (02/22/2022 12:00 AM EDT) Chlamydia trachomatis RNA, TMA, Urogenital NOT DETECTED NOT DETECTED [facility] Clinical Information: None given [facility] COMMENT SEE COMMENT [facility] Comment: The analytical performance characteristics of this assay, when used to test SurePath(TM) specimens have been determined by [employer]. The modifications have not been cleared or approved by the FDA. This assay has been validated pursuant to the CLIA regulations and is used for clinical purposes. For additional information, please refer to https://education.Pristones/faq/RCA684 (This link is being provided for information/ [...] was manually screened according to routine procedures. Hotel Night Auditor: SEE COMMENT [facility] Comment: ALS, CT(ASCP) CT screening location: [place] [address] HPV nRNA E6/E7 Not Detected Not Detected [facility] Comment: Methodology: Clinical Cytopathologist-Mediated Amplification This assay detects E6/E7 viral messenger RNA (mRNA) from 14 high-risk HPV types (16,18,31,33,35,39,45,51,52,56,58,59,66,68). Cervical sources are required for HPV testing. If a vaginal source from a patient who has had a total hysterectomy with removal of cervix was submitted, please contact the testing laboratory for alternative testing options. For additional information, please refer to http://education.Pristones/faq/KML390o3 (This link if provided for information/ educational purposes only.) Infection Trichomonas vaginalis identified. [facility] Interpretation/Re sult: Negative for intraepithelial lesion or malignancy. [facility] LMP: NONE GIVEN [facility] Neisseria gonorrhoeae RNA, TMA, Urogenital NOT DETECTED NOT DETECTED [facility] Prev. BX: NONE GIVEN [facility] Prev. PAP: NONE GIVEN [facility] Review Hotel Night Auditor: SEE COMMENT [facility] Comment: DCR, CT(ASCP) CT screening location: [place] [address] SOURCE: None given [facility] Statement Of Adequacy: SEE COMMENT [facility] Comment: Satisfactory for evaluation. Endocervical/transformation zone component present. Age and/or menstrual status not provided Trichomonas vaginalis, QL, TMA, PAP Vial DETECTED(A) NOT DETECTED [facility] Comment: The analytical performance characteristics of this assay have been determined by [facility]. The modifications have not been cleared or approved by the FDA. This assay has been validated pursuant to the CLIA regulations and is used for clinical purposes. For additional information, please refer to http://education.Pristones/ faq/Trichomonastma (This link is being provided for information/ educational purposes only.) 02/22/2022 Key Rodríguez MD LAB PATHOLOGY ORDERABLES Jo l Result Performing Organization Address [facility] Phone Number [facility] [address] [place] [address], * HEPATITIS C AB W/REFL TO HCV RNA, QN, PCR (07/12/2021 10:17 AM EDT) HEPATITIS C ANTIBODY NON-REACT TOBIAS NON-REACT TOBIAS [facility] INDEX 0.01 <1.00 [facility] Comment: HCV antibody was non-reactive. There is no laboratory evidence of HCV infection. In most cases, no further action is required. However, if recent HCV exposure is suspected, a test for HCV RNA (test code 23695) is suggested. For additional information please refer to http://Suso.Beyond.com.PageStitch/faq/UHM10c2 (This link is being provided for informational/ educational purposes only.) 07/12/2021 10:1 7 AM EDT Key Rodríguez MD HISTORICAL/NON ORDERABLE LABS Final Result Performing Organization Address [facility] Phone Number [facility] [address] [place] [address], * HIV 1/2 ANTIGEN/ANTIBODY,FOURTH GENERATION W/RFL (07/12/2021 10:17 AM EDT) HIV-1/2 ANTIGEN AND ANTIBODIES, 4TH GENERATION W/ REFLEX NON-REACT TOBIAS NON-REACT TOBIAS [facility] Comment: HIV-1 antigen and HIV-1/HIV-2 [...] purpose. For additional information please refer to http://education.Beyond.com.PageStitch/faq/HSA904 (This link is being provided for informational/ educational purposes only.) The performance of this assay has not been clinically validated in patients less than 2 years old. 07/12/2021 10:1 7 AM EDT us Key Rodríguez MD LAB BLOOD ORDERABLES Final Re sult [facility] [address] from Last 3 Months or Most Recently Relevant to Health Maintenance Insurance [employer]ARE < [address] [place] [id number] [employer] Care Teams Customer Pricing Manager Relationship Specialty Start Date End Date Key Rodríguez MD [address] [place] [phone] PCP - General Family Medicine 09/23/18
--- OUTSIDE RECORDS SUMMARY | 2025-06-02 17:20 | XMS_ITS | Encounter Summary ---
Author Organization [employer] Address 75 [facility] [address] [address] Care Team Providers Care Nurses' Association Counselor Name Role Phone Key Rodríguez MD Primary Care Provider [phone] Reason for Visit * Reason Onset Date Comments Lab Orders 06/01/2025 Encounter Details Date Type Department Care Team ([facility] st Contact Info) Description 06/01/2025 Telephone [facility] MED & PEDS [address] [place] [address] Key Rodríguez MD [address] [place] [address] Lab Orders Social History Tobacco Use Types Packs/Day Years [...] encounter Miscellaneous Notes * Telephone Encounter - Cat Thomas RN - 06/01/2025 9:42 AM EDT T-spot order placed for patient. * Telephone Encounter - Jorge Francojessica - 06/01/2025 9:37 AM EDT Tc from pt requesting a lab order for TB test Contact pt at [phone] documented in this encounter Plan of Treatment Upcoming Encounters Date Type Department Care Team (Late st Contact Info) Description 06/07/2025 11:00 AM EDT Office Visit [facility] ADULT DENTAL [address] [place] [address] Rohit Fairchild 07/27/2025 9:00 AM EST Office Visit [facility] MED & PEDS [address] [place] [address] Key Rodríguez MD [address] [place] [address] 08/30/2025 9:30 AM EST Clinical Support [facility] MED & PEDS [address] [place] [address] Scheduled Orders Name Type Priority Associated Diagnoses Orde r Schedule T-SPOT .TB Lab Routine Screening for tuberculosis Expected: 06/01/2025 (Approximate), Expires: 06/01/2026 documented as of this encounter Visit Diagnoses Diagnosis Screening for tuberculosis Screening examination for pulmonary tuberculosis documented in this encounter Additional Health Concerns Assessment Noted Time PHQ-9 Depression Total Score: 9 03/03/20 24 3:00 PM EDT documented as of this encounter Care Teams Nurses' Association Counselor Relationship Specialty Start Date End Date Key Rodríguez MD [address] [place] [address] PCP - General Family Medicine 09/23/18 documented as of this encounter
--- OUTSIDE RECORDS SUMMARY | 2025-06-02 17:20 | XMS_ITS | Encounter Summary ---
Author Organization [facility] Address 75 [facility] [address] [address] Care Team Providers Care Iv Rn Name Role Phone Key Rodríguez MD Primary Care Provider [phone] Encounter Details Date Type Department Care Team (Latest Contact Info) Description 01/20/2019 Abstract [facility] CONVERSIONS Dental, Provider, DDS Social History Tobacco [...] Care Team ( st Contact Info) Description 06/07/2025 11:00 AM EDT Office Visit [facility] ADULT DENTAL [address] [place] [address] Rohit Fairchild 07/27/2025 9:00 AM EST Office Visit [facility] MED & PEDS [address] [place] [address] Key Rodríguez MD [address] [place] [address] 08/30/2025 9:30 AM EST Clinical Support [facility] MED & PEDS [address] [place] [address] documented as of this encounter Visit Diagnoses Not on filedocumented in this encounter Care Teams Iv Rn Relationship Specialty Start Date End Date Key Rodríguez MD [address] [place] [address] PCP - General Family Medicine 09/23/18 documented as of this encounter
--- OUTSIDE RECORDS SUMMARY | 2025-06-02 17:20 | XMS_ITS | Encounter Summary ---
Author Organization [employer] Address 75 [facility] 7 [place] [address] Care Team Providers Care Certified Juvenile Probation Officer Name Role Phone Key Rodríguez MD Primary Care Provider [phone] Reason for Visit * Reason Onset Date Comments Durable Medical Equipment 11/05/2024 Encounter Details Date Type Department Care Team ([facility] st Contact Info) Description 11/05/2024 Telephone [facility] MEDICINE [address] [place] [address] Key Rodríguez MD [address] [place] [address] Durable Medical Equipment Social History Tobacco Use [...] ines. Pt is requesting a call back [phone] * Telephone Encounter - Vijay Barriga - 11/05/2024 10:41 AM EST Tc from pt requesting compression socks to be sent to ines. Pt is requesting a call back [phone] documented in this encounter Plan of Treatment Upcoming Encounters Date Type Department Care Team (Late st Contact Info) Description 06/07/2025 11:00 AM EDT Office Visit [facility] ADULT DENTAL [address] [place] [address] Rohit Fairchild 07/27/2025 9:00 AM EST Office Visit [facility] MED & PEDS [address] [place] [address] Key Rodríguez MD [address] [place] [address] 08/30/2025 9:30 AM EST Clinical Support [facility] MED & PEDS [address] [place] [address] documented as of this encounter Visit Diagnoses Not on filedocumented in this encounter Additional Health Concerns Assessment Noted Time PHQ-9 Depression Total Score: 9 03/03/20 24 3:00 PM EDT documented as of this encounter Care Teams Certified Juvenile Probation Officer Relationship Specialty Start Date End Date Key Rodríguez MD [address] [place] [address] PCP - General Family Medicine 09/23/18 documented as of this encounter
--- OUTSIDE RECORDS SUMMARY | 2025-06-02 17:20 | XMS_ITS | Encounter Summary ---
Author Organization [employer] Address [address] [facility] [address] [address] Care Team Providers Care Custodial Foreman Name Role Phone Key Rodríguez MD Primary Care Provider [phone] Encounter Details Date Type Department Care Team (Latest Contact Info) Description 06/02/2025 Travel Social History Tobacco Use Types Packs/Day [...] 11:00 AM EDT Office Visit [facility] ADULT DENTAL [address] [place] [address] Rohit Fairchild 07/27/2025 9:00 AM EST Office Visit [facility] MED & PEDS [address] [place], [place] [id number] Key Rodríguez MD [address] [place] [address] 08/30/2025 9:30 AM EST Clinical Support [facility] CHC MED & PEDS [address] [place] [address] documented as of this encounter Visit Diagnoses Not on filedocumented in this encounter Additional Health Concerns Assessment Noted Time PHQ-9 Depression Total Score: 9 03/03/20 24 3:00 PM EDT documented as of this encounter Care Teams Custodial Foreman Relationship Specialty Start Date End Date Key Rodríguez MD [address] [facility] [place] [facility] [place] [address] PCP - General Family Medicine 09/23/18 documented as of this encounter
--- OUTSIDE RECORDS SUMMARY | 2025-06-02 17:20 | XMS_ITS | Encounter Summary ---
Author Organization [facility] Address 75 [facility] [address] [address] Care Team Providers Care Clinical Laboratory Technologist Name Role Phone Key Rodríguez MD Primary Care Provider [phone] Encounter Details Date Type Department Care Team (Latest Contact Info) Description 11/29/2020 Abstract [facility] CONVERSIONS Dental, Provider, DDS Social History Tobacco [...] Description 06/07/2025 11:00 AM EDT Office Visit [facility] ADULT DENTAL [address] [place] [address] Rohit Fairchild 07/27/2025 9:00 AM EST Office Visit [facility] MED & PEDS [address] [place] [address] Key Rodríguez MD [address] [place] [address] 08/30/2025 9:30 AM EST Clinical Support [facility] MED & PEDS [address] [place] [address] documented as of this encounter Visit Diagnoses Not on filedocumented in this encounter Care Teams Clinical Laboratory Technologist Relationship Specialty Start Date End Date Key Rodríguez MD [address] [place] [address] PCP - General Family Medicine 09/23/18 documented as of this encounter
--- OUTSIDE RECORDS SUMMARY | 2025-06-02 17:20 | XMS_ITS | Encounter Summary ---
Author Organization [employer] Address 75 [facility] [address] [address] Care Team Providers Care Swage Tender Name Role Phone Key Rodríguez MD Primary Care Provider [phone] Reason for Referral * Consultation (Routine) - Authorized Specialty Diagnoses / Procedures Referred By Contloretta t Referred To Contact Endocrinology Diagnoses Galactorrhea Key Rodríguez MD [address] [place] [address] Phone: tel: fax: [facility] [address], [address] [place] [address] Phone: tel: fax: Referral ID Status Reason Start Date Expiration Date Visits Requested Visits Authorized [id number] Authorized Specialty Services Required 05/28/2025 05/28/2026 1 1 Encounter Details Date Type Department Care Team ([facility] st Contact Info) Description 05/28/2025 Orders Only [facility] CH[facility] MED & PEDS [address] [place], [place] [phone] Key Rodríguez MD [address] [place], [place] [phone] Galactorrhea (Primary Dx) Social History Tobacco Use Types Packs/Day Years [...] 06/07/2025 11:00 AM EDT Office Visit [facility] ADULT DENTAL [address] [place] [address] Rohit Fairchild 07/27/2025 9:00 AM EST Office Visit [facility] MED & PEDS [address] [place] [address] Key Rodríguez MD [address] [place] [address] 08/30/2025 9:30 AM EST Clinical Support [facility] MED & PEDS [address] [place] [address] Scheduled Referrals Name Type Priority Associated Diagnoses Order Schedule Referral to Endocrinology Outpatient Referral Routine Galactorrhea Expected: 05/28/2025 (Approximate), Expires: 05/28/2026 documented as of this encounter Visit Diagnoses Diagnosis Galactorrhea- Primary Galactorrhea not associated with childbirth documented in this encounter Additional Health Concerns Assessment Noted Time PHQ-9 Depression Total Score: 9 03/03/20 24 3:00 PM EDT documented as of this encounter Care Teams Swage Tender Relationship Specialty Start Date End Date Key Rodríguez MD [address] [place] [address] PCP - General Family Medicine 09/23/18 documented as of this encounter
--- OUTSIDE RECORDS SUMMARY | 2025-06-02 17:21 | XMS_ITS | Encounter Summary ---
Author Organization [employer] Address 75 [facility] [address] [place] [address] Care Team Providers Care Gang Bore Operator Name Role Phone Key Rodríguez MD Primary Care Provider [phone] Reason for Visit * Reason Onset Date Comments Call Back Request 03/31/2025 Encounter Details Date Type Department Care Team ([facility] st Contact Info) Description 03/31/2025 Telephone [facility] MEDICINE [address] [place] [address] Key Rodríguez MD [address] [place] [address] Call Back Request Social History Tobacco Use [...] 11:00 AM EDT Office Visit [facility] ADULT DENTAL [address] [place] [address] Rohit Fairchild 07/27/2025 9:00 AM EST Office Visit [facility] MED & PEDS [address] [place] [address] Key Rodríguez MD [address] [place] [address] 08/30/2025 9:30 AM EST Clinical Support [facility] MED & PEDS [address] [place] [address] documented as of this encounter Visit Diagnoses Not on filedocumented in this encounter Additional Health Concerns Assessment Noted Time PHQ-9 Depression Total Score: 9 03/03/20 24 3:00 PM EDT documented as of this encounter Care Teams Gang Bore Operator Relationship Specialty Start Date End Date Key Rodríguez MD [address] [place] [address] PCP - General Family Medicine 09/23/18 documented as of this encounter
--- OUTSIDE RECORDS SUMMARY | 2025-06-02 17:21 | XMS_ITS | Encounter Summary ---
Author Organization [employer] Address 75 [facility] 7 [place] [address] Care Team Providers Care Steel Pan Form Placing Supervisor Name Role Phone Key Rodríguez MD Primary Care Provider [phone] Reason for Visit * Reason Onset Date Comments Covid-19 Testing 10/01/2023 Patient 2 of 2 Encounter Details Date Type Department Care Team ([facility] st Contact Info) Description 10/01/2023 Telephone [facility] MEDICINE [address] [place] [address] Key Rodríguez MD [address] [place] [address] Covid-19 Testing (Patient 2 of 2) Social [...] the rapid home covid tests available at [facility] because her son got a false negative result on that test the same day he later tested positive for covid at our [facility] office. Patient's son scheduled for f/u [...] coming into the office. Routing back to [facility] nurses to evaluate priority for SDC [...] Description 06/07/2025 11:00 AM EDT Office Visit [facility] ADULT DENTAL [address] [place] [address] Rohit Fairchild 07/27/2025 9:00 AM EST Office Visit [facility] MED & PEDS [address] [place] [address] Key Rodríguez MD [address] [place] [address] 08/30/2025 9:30 AM EST Clinical Support [facility] MED & PEDS [address] [place] [address] documented as of this encounter Visit Diagnoses Not on filedocumented in this encounter Additional Health Concerns Assessment Noted Time PHQ-9 Depression Total Score: 4 08/12/20 23 1:51 PM EST documented as of this encounter Care Teams Steel Pan Form Placing Supervisor Relationship Specialty Start Date End Date Key Rodríguez MD [address] [place] [address] PCP - General Family Medicine 09/23/18 documented as of this encounter
--- OUTSIDE RECORDS SUMMARY | 2025-06-02 17:21 | XMS_ITS | Encounter Summary ---
Author Organization [employer] Address 75 [facility] [address] [place] [address] Care Team Providers Care Hvac Journeyman Name Role Phone Key Rodríguez MD Primary Care Provider [phone] Encounter Details Date Type Department Care Team (Late Contact Info) Description 04/08/2023 Orders Only [facility] MEDICINE [address] [place] [address] Anika Messina LPN Social History Tobacco Use [...] Encounters Date Type Department Care Team (Late Contact Info) Description 06/07/2025 11:00 AM EDT Office Visit [facility] ADULT DENTAL [address] [place] [address] Rohit Fairchild 07/27/2025 9:00 AM EST Office Visit [facility] MED & PEDS [address] [place] [address] Key Rodríguez MD [address] [place] [address] 08/30/2025 9:30 AM EST Clinical Support [facility] MED & PEDS [address] [place] [address] documented as of this encounter Visit Diagnoses Not on filedocumented in this encounter Additional Health Concerns Assessment Noted Time PHQ-9 Depression Total Score: 9 03/25/20 23 10:35 AM EDT documented as of this encounter Care Teams Hvac Journeyman Relationship Specialty Start Date End Date Key Rodríguez MD [address] [place] [address] PCP - General Family Medicine 09/23/18 documented as of this encounter
--- OUTSIDE RECORDS SUMMARY | 2025-06-02 17:21 | XMS_ITS | Encounter Summary ---
Author Organization [employer] Address 75 [facility] 7t [place] [address] Care Team Providers Care Executive Manager Name Role Phone Key Rodríguez MD Primary Care Provider [phone] Reason for Visit * Reason Comments Med Refill Encounter Details Date Type Department Care Team ([facility] Contact Info) Description 02/19/2023 Refill [facility] MED & PEDS [address] [place] [address] Key Rodríguez MD [address] [place] [address] Social History Tobacco Use Types Packs/Day Years [...] Upcoming Encounters Date Type Department Care Team ([facility] Contact Info) Description 06/07/2025 11:00 AM EDT Office Visit [facility] ADULT DENTAL [address] [place] [address] Rohit Fairchild 07/27/2025 9:00 AM EST Office Visit [facility] MED & PEDS [address] [place] [address] Key Rodríguez MD [address] [place] [address] 08/30/2025 9:30 AM EST Clinical Support [facility] MED & PEDS [address] [place] [address] documented as of this encounter Visit Diagnoses Not on filedocumented in this encounter Additional Health Concerns Assessment Noted Time PHQ-9 Depression Total Score: 13 023 3:00 PM EDT documented as of this encounter Care Teams Executive Manager Relationship Specialty Start Date End Date Key Rodríguez MD [address] [place] [address] PCP - General Family Medicine 09/23/18 documented as of this encounter
--- OUTSIDE RECORDS SUMMARY | 2025-06-02 17:21 | XMS_ITS | Encounter Summary ---
Author Organization [employer] Address 75 [facility] [address] [place] [address] Care Team Providers Care Senior Software Quality Analyst Name Role Phone Key Rodríguez MD Primary Care Provider [phone] Encounter Details Date Type Department Care Team (Late Contact Info) Description 05/28/2025 Results Follow-Up [facility] MED & PEDS [address] [place] [address] Key Rodríguez MD [address] [place] [address] Prolactin, TSH W/Reflex to FT4 Social History Tobacco Use Types Packs/Day Years [...] 11:00 AM EDT Office Visit [facility] ADULT DENTAL [address] [place] [address] Rohit Fairchild 07/27/2025 9:00 AM EST Office Visit [facility] MED & PEDS [address] [place] [address] Key Rodríguez MD [address] [place] [address] 08/30/2025 9:30 AM EST Clinical Support [facility] MED & PEDS [address] [place] [address] documented as of this encounter Visit Diagnoses Not on filedocumented in this encounter Additional Health Concerns Assessment Noted Time PHQ-9 Depression Total Score: 9 03/03/20 24 3:00 PM EDT documented as of this encounter Care Teams Senior Software Quality Analyst Relationship Specialty Start Date End Date Key Rodríguez MD [address] [place] [address] PCP - General Family Medicine 09/23/18 documented as of this encounter
--- OUTSIDE RECORDS SUMMARY | 2025-06-02 17:21 | XMS_ITS | Encounter Summary ---
Author Organization [employer] Address 75 [facility] 7 [place] [address] Care Team Providers Care Cash Person Name Role Phone Key Rodríguez MD Primary Care Provider [phone] Reason for Visit * Reason Onset Date Comments Med Refill 12/02/2023 Encounter Details Date Type Department Care Team ([facility] st Contact Info) Description 12/02/2023 Telephone [facility] MEDICINE [address] [place] [address] Key Rodríguez MD [address] [place] [address] Med Refill Social History Tobacco Use Types [...] other people? Somewhat difficult 12/02/2023 11:23 AM Miuge Meza [place] * Over the past 2 [...] Miscellaneous Notes * Telephone Encounter - Kathy Navaso - 12/02/2023 1:02 PM EDT Tc from [facility] calling requesting alternative for Flovent HFA 110 MCG/ACT inhaler, stating is no longer manufactured. documented in this encounter Plan of Treatment Upcoming Encounters Date Type Department Care Team (Late st Contact Info) Description 06/07/2025 11:00 AM EDT Office Visit [facility] ADULT DENTAL [address] [place] [address] Rohit Fairchild 07/27/2025 9:00 AM EST Office [facility] MED & PEDS [address] [place] [address] Key Rodríguez MD [address] [place] [address] 08/30/2025 9:30 AM EST Clinical Support [facility] MED & PEDS [address] [place] [address] documented as of this encounter Visit Diagnoses Not on filedocumented in this encounter Additional Health Concerns Assessment Noted Time PHQ-9 Depression Total Score: 3 12/02/19 24 11:23 AM EDT documented as of this encounter Care Teams Cash Person Relationship Specialty Start Date End Date Key Rodríguez MD [address] [place] [address] PCP - General Family Medicine 09/23/18 documented as of this encounter
--- OUTSIDE RECORDS SUMMARY | 2025-06-02 17:21 | XMS_ITS | Encounter Summary ---
Author Organization [employer] Address 75 [facility] 7t [place] [address] Care Team Providers Care Float Operator Name Role Phone Key Rodríguez MD Primary Care Provider [phone] Reason for Visit * Reason Onset Date Comments Appointment 11/06/2023 [facility] Encounter Details Date Type Department Care Team (Late st Contact Info) Description 10/29/2023 Refill [facility] MEDICINE [address] [place] [address] Adarsh Booth FNP Bipolar affective disorder, remission status unspecified (CMS/[facility]) Social History Tobacco Use Types Packs/Day Years [...] Psych prescriber & still interested in seeing [employer]Adarsh Booth. documented in this encounter Plan of Treatment Upcoming Encounters Date Type Department Care Team (Late st Contact Info) Description 06/07/2025 11:00 AM EDT Office Visit [facility] ADULT DENTAL [address] [place] [address] Rohit Fairchild 07/27/2025 9:00 AM EST Office Visit [facility] MED & PEDS [address] [place] [address] Key Rodríguez MD [address] [place] [address] 08/30/2025 9:30 AM EST Clinical Support [facility] MED & PEDS [address] [place] [address] documented as of this encounter Visit Diagnoses Diagnosis Bipolar affective disorder, remission status unspecified (CMS/[facility]) documented in this encounter Additional Health Concerns Assessment Noted Time PHQ-9 Depression Total Score: 4 08/12/20 23 1:51 PM EST documented as of this encounter Care Teams Float Operator Relationship Specialty Start Date End Date Key Rodríguez MD [address] [place] [address] PCP - General Family Medicine 09/23/18 documented as of this encounter
--- OUTSIDE RECORDS SUMMARY | 2025-06-02 17:21 | XMS_ITS | Encounter Summary ---
Author Organization [employer] Address [address] [facility] [address] [place] [address] Care Team Providers Care Body Wirer Name Role Phone Key Rodríguez MD Primary Care Provider [phone] Encounter Details Date Type Department Care Team (Late st Contact Info) Description 02/05/2024 Telephone [facility] ADULT DENTAL [address] [place] [address] Jason Duran, DMD [address] [place] [address] Social History Tobacco Use Types Packs/Day Years [...] Patient insurance could not pay for tuff CPA Exchange insurance says if u send the regular [...] 11:00 AM EDT Office Visit [facility] ADULT DENTAL [address] [place] [address] Rohit Fairchild 07/27/2025 9:00 AM EST Office Visit [facility] MED & PEDS [address] [place] [address] Key Rodríguez MD [address] [place] [address] 08/30/2025 9:30 AM EST Clinical Support [facility] MED & PEDS [address] [place] [address] documented as of this encounter Visit Diagnoses Not on filedocumented in this encounter Additional Health Concerns Assessment Noted Time PHQ-9 Depression Total Score: 3 12/02/19 24 11:23 AM EDT documented as of this encounter Care Teams Body Wirer Relationship Specialty Start Date End Date Key Rodríguez MD [address] [place] [address] PCP - General Family Medicine 09/23/18 documented as of this encounter
--- OUTSIDE RECORDS SUMMARY | 2025-06-02 17:21 | XMS_ITS | Encounter Summary ---
Author Organization [employer] Address [address] [facility] [address] [place] [address] Care Team Providers Care Barber Shop Manager Name Role Phone Key Rodríguez MD Primary Care Provider [phone] Reason for Visit * Reason Onset Date Comments Care Coordination 05/28/2025 Encounter Details Date Type Department Care Team ([facility] st Contact Info) Description 05/28/2025 Telephone [facility] [address] [place] [address] Key Rodríguez MD [address] [place] [address] Care Coordination Social History Tobacco Use Types Packs/Day Years [...] encounter Miscellaneous Notes * Telephone Encounter - Vy Vyas RN - 05/28/2025 4:28 PM EDT Images from the original note were not included. RN spoke with seaport planning manager about this because she could not find consent form. Manger spoke with Kate HAMILTON, and medical records will take care of this request. MD Vy Wilson, RN Can you see if you can get me her medical records from [facility] in [place].She signed a release.Thanks documented in this encounter Plan of Treatment Upcoming Encounters Date Type Department Care Team (Late st Contact Info) Description 06/07/2025 11:00 AM EDT Office Visit [facility] ADULT DENTAL [address] [place] [address] Rohit Fairchild 07/27/2025 9:00 AM EST Office Visit [facility] MED & PEDS [address] [place] [address] Key Rodríguez MD [address] [place] [address] 08/30/2025 9:30 AM EST Clinical Support [facility] MED & PEDS [address] [place] [address] documented as of this encounter Visit Diagnoses Not on filedocumented in this encounter Additional Health Concerns Assessment Noted Time PHQ-9 Depression Total Score: 9 03/03/20 24 3:00 PM EDT documented as of this encounter Care Teams Barber Shop Manager Relationship Specialty Start Date End Date Key Rodríguez MD [address] [place] [address] PCP - General Family Medicine 09/23/18 documented as of this encounter
--- OUTSIDE RECORDS SUMMARY | 2025-06-02 17:21 | XMS_ITS | Encounter Summary ---
Author Organization [employer] Address [address] [facility] [address] [place] [address] Care Team Providers Care Metal Pattern Maker Name Role Phone Key Rodríguez MD Primary Care Provider [phone] Reason for Visit * Reason Comments Med Refill Encounter Details Date Type Department Care Team ([facility] Contact Info) Description 02/05/2023 Refill [facility] MED & PEDS [address] [place] [address] Key Rodríguez MD [address] [place] [address] Social History Tobacco Use Types Packs/Day Years [...] Upcoming Encounters Date Type Department Care Team ([facility] Contact Info) Description 06/07/2025 11:00 AM EDT Office Visit [facility] ADULT DENTAL [address] [place] [address] Rohit Fairchlid 07/27/2025 9:00 AM EST Office Visit [facility] MED & PED[facility] [address] [place] [address] Key Rodríguez MD [address] [place] [address] 08/30/2025 9:30 AM EST Clinical Support [facility] MED [facility] [address] [place] [address] documented as of this encounter Visit Diagnoses Not on filedocumented in this encounter Additional Health Concerns Assessment Noted Time PHQ-9 Depression Total Score: 12 023 11:24 AM EDT documented as of this encounter Care Teams Metal Pattern Maker Relationship Specialty Start Date End Date Key Rodríguez MD [address] [place] [address] PCP - General Family Medicine 09/23/18 documented as of this encounter
--- OUTSIDE RECORDS SUMMARY | 2025-06-02 17:21 | XMS_ITS | Encounter Summary ---
Author Organization [employer] Address [address] [facility] [address] [place] [address] Care Team Providers Care Director Of Quality Improvement Name Role Phone Key Rodríguez MD Primary Care Provider [phone] Encounter Details Date Type Department Care Team ([facility] st Contact Info) Description 05/31/2025 Refill [facility] [address] [place], [place] [phone] Key Rodríguez MD [address] [place] [address] Uses control Social History Tobacco Use Types Packs/Day Years [...] Telephone Encounter - Cat Thomas RN - 05/31/2025 9:42 AM EDT Patient walk-in requesting Depo shot. Appointment scheduled for Depo tomorrow. Will route to provider for depo injection order. Medication qued for provider. documented in this encounter Plan of Treatment Upcoming Encounters Date Type Department Care Team (Late st Contact Info) Description 06/07/2025 11:00 AM EDT Office Visit [facility] ADULT DENTAL [address] [place] [address] Rohit Fairchild 07/27/2025 9:00 AM EST Office Visit [facility] MED & PEDS [address] [place] [address] Key Rodríguez MD [address] [place] [address] 08/30/2025 9:30 AM EST Clinical Support [facility] MED & PEDS [address] [place] [address] documented as of this encounter Visit Diagnoses Diagnosis Uses control documented in this encounter Additional Health Concerns Assessment Noted Time PHQ-9 Depression Total Score: 9 03/03/20 24 3:00 PM EDT documented as of this encounter Care Teams Director Of Quality Improvement Relationship Specialty Start Date End Date Key Rodríguez MD [address] [place] [address] PCP - General Family Medicine 09/23/18 documented as of this encounter
--- OUTSIDE RECORDS SUMMARY | 2025-06-02 17:21 | XMS_ITS | Encounter Summary ---
Author Organization [employer] Address [address] [facility] [address] [place] [address] Care Team Providers Care Buffing Machine Operator Name Role Phone Key Rodríguez MD Primary Care Provider [phone] Encounter Details Date Type Department Care Team ([facility] Contact Info) Description 02/05/2023 Orders Only [facility] MED & PEDS [address] [place], [place] [phone] Jacki Steen LPN Social History Tobacco Use [...] 11:00 AM EDT Office Visit [facility] ADULT DENTAL [address] [place] [address] Rohit Fairchild 07/27/2025 9:00 AM EST Office Visit [facility] MED & PEDS [address] [place], [place] [phone] Key Rodríguez MD [address] [place] [address] 08/30/2025 9:30 AM EST Clinical Support [facility] PEDS [address] [place] [address] documented as of this encounter Visit Diagnoses Not on filedocumented in this encounter Additional Health Concerns Assessment Noted Time PHQ-9 Depression Total Score: 12 023 11:24 AM EDT documented as of this encounter Care Teams Buffing Machine Operator Relationship Specialty Start Date End Date eKy Rodríguez MD [address] [place] [address] PCP - General Family Medicine 09/23/18 documented as of this encounter
--- OUTSIDE RECORDS SUMMARY | 2025-06-02 17:21 | XMS_ITS | Encounter Summary ---
Author Organization [employer] Address [address] [facility] [address] [place] [address] Care Team Providers Care Clinical Pathologist Name Role Phone Key Rodríguez MD Primary Care Provider [phone] Reason for Visit * Reason Onset Date Comments Med Refill 05/25/2025 Encounter Details Date Type Department Care Team ([facility] st Contact Info) Description 05/25/2025 Telephone [facility] [address] [place] [address] Key Rodríguez MD [address] [place] [address] Med Refill Social History Tobacco Use Types [...] on a medication. Please contact pt at [phone]. documented in this encounter Plan of Treatment Upcoming Encounters Date Type Department Care Team ([facility] st Contact Info) Description 06/07/2025 11:00 AM EDT Office Visit [facility] ADULT DENTAL [address] [place] [address] Rohit Fairchild 07/27/2025 9:00 AM EST Office Visit [facility] MED & PEDS [address] [place] [address] Key Rodríguez MD [address] [place] [address] 08/30/2025 9:30 AM EST Clinical Support [facility] MED & PEDS [address] [place] [address] documented as of this encounter Visit Diagnoses Not on filedocumented in this encounter Additional Health Concerns Assessment Noted Time PHQ-9 Depression Total Score: 9 03/03/20 24 3:00 PM EDT documented as of this encounter Care Teams Clinical Pathologist Relationship Specialty Start Date End Date Key Rodríguez MD [address] [place] [address] PCP - General Family Medicine 09/23/18 documented as of this encounter
[2025-06-05 03:48] LABS: TS Negative Control Passed; TS Panel A 0; TS Panel B 1; TS Positive Control Passed; TSpotTB Negative (Negative)
== END 2025-06-02 14:08 | disposition home or self-care (01) ==
LOC: HO.CHCLDS 14:07
PROVIDERS: Visit Provider Pediatrics
DX: Z11.1 Encounter for screening for respiratory tuberculosis (principal)
CPT/HCPCS: 36415; 86481

== ENCOUNTER → 2025-07-12 12:57 | Outpatient (BNVA) | payer OTHER, SELFPAY | PROVIDERS: PCP Pediatrics; Visit Provider Emergency Medicine | DX: M23.91 Unspecified internal derangement of right knee (principal) | CPT/HCPCS: 99202 ==

== ENCOUNTER 2025-07-14 09:13 | Outpatient (AMB) | payer OTHER, SELFPAY ==
[2025-07-14 09:18] VITALS: BP 110/64; PULSE 81; O2SAT 99; BMI 33.7
--- NOTE | 2025-07-14 09:18 | MHC.OFFVIS ---
Vital Signs 07/14/25 09:18 Height 5 ft 6 in Weight 209 lb BMI 33.7 BP 110/64 Blood Pressure Location Lt brachial Position Sitting Pulse 81 Pulse Source Pulse Oximeter Pulse Oximetry (%) 99 Oxygen Delivery Method Room Air Intake Visit Reasons: 3 mo follow up Intake Note: Patient presents follow up ROEL. Labs/Compliance in chart(, >=4hrs-17%, Average Usage- 1hr 23min, Med Pressure- 8.9, Med Leakage 19.4, AHI-3.6). Has not received any supplies for machine. Accompanied by: Self / Same As Patient Allergies latex Allergy (Severe, Verified 07/14/25 09:20) Anaphylaxis zolpidem (From Ambien) Allergy (Severe, Verified 07/14/25 09:20) Confusion shrimp Allergy (Severe, Uncoded 09/13/23 11:34) Eye Swelling HPI Comments Details: 49 y/o female patient with hx of asthma presents for f/u of REOL. PSG 10/2022, moderate ROEL, AHI was 22.4/hr and oxygen neelam was 81%. ROEL Compliance Report 04/2025 - 06/2025 HST >4 hours days and Avg total days 1 hours and 23 min Pressures are [id number] Median press 8.7cmH20 Leaks /min 19.4 cmH20 AHI is 3.6 cmH20 Pt is having difficulty with the cpap machine due to mask being torn and needs a new mask in order to be compliant. She says now she is working 3 days a week. She recently was in rehab for detox May 18- 2024 in [place] for alcohol use disorder. She declines medications today. She has bilateral knee pain due to grinding of the bone on bone pain and torn meniscus. She has bilateral leg pain due to Chondromalacia and has radiating pain down her buttocks with numbness, and a tingling sensation in both feet radiating up to the calves and knees. She gets iron infusions when she is fatigued d/t VASHTI. She has a history of REM behavior disorders with nightmares, screaming, thrashing, flailing behaviors. She sleeps better with topiramate 50mg po BID. Her mood is depressed. 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 [employer] Physical Exam Vital Signs: Last Vital Signs Pulse 81 07/14/25 09:18 BP 110/64 07/14/25 09:18 Pulse Ox 99 07/14/25 09:18 Oxygen Delivery Method Room Air 07/14/25 09:18 BMI result Body Mass Index 33.7 Const General: cooperative Nutritional Appearance: obese Orientation/consciousness: patient oriented x3 Eyes Pupils: Equal, round and reactive pupils present Neck Neck: Yes full ROM and Yes supple Resp Effort & Inspection: normal respiratory effort and able to speak in complete sentences Neuro General: patient oriented x3, gait normal and moves all extremities Cranial nerves: Yes CN's II-XII intact bilaterally, Yes Equal, round and reactive pupils present, Yes Normal accommodation reflex present, Yes Normal facial strength present, Yes Midline tongue present, Yes Ability to bilaterally rotate head present and Yes Ability to bilaterally elevate shoulders present Cognition (Neuro): normal cognition Gait exam (Neuro): Normal gait present Motor exam (neuro): 5/5 motor strength present throughout, Pronator motor function not present and no tremor noted Psych Appearance: grossly normal Mental Status: mental status grossly normal Affect: normal affect Attitude: cooperative Thought content: Depressive thoughts present Insight: Fair insight present (Psych) Results Reviewed Results Reviewed: PSG 10/2022, moderate ROEL, AHI was 22.4/hr and oxygen neelam was 81%. ROEL Compliance Report 04/2025 - 06/2025 HST >4 hours days and Avg total days 1 hours and 23 min Pressures are [id number] Median press 8.7cmH20 Leaks /min 19.4 cmH20 AHI is 3.6 cmH20 Assessment & Plan Assessment & Plan (1) ROEL (obstructive sleep apnea): Comment: Moderate degree of sleep apnea. The AHI was 22/hr and oxygen neelam was 81% Code(s): G47.33 - Obstructive sleep apnea (adult) (pediatric) Category: Medical (2) Low vitamin D level: Code(s): R79.89 - Other specified abnormal findings of blood chemistry Category: Medical (3) RLS (restless legs syndrome): Code(s): G25.81 - Restless legs syndrome Category: Medical (4) Right sided sciatica: Comment: PT Code(s): M54.31 - Sciatica, right side Category: Medical (5) Hip pain, bilateral: Code(s): M25.551 - Pain in right hip; M25.552 - Pain in left hip Category: Medical (6) Night terrors: Code(s): F51.4 - Sleep terrors [night terrors] Category: Medical (7) Leg muscle spasm: Code(s): M62.838 - Other muscle spasm Category: Medical Qualifiers: Laterality: bilateral Qualified Code(s): M62.838 - Other muscle spasm Plan Moderate ROEL on CPAP, compliance reviewed with pt she is not compliant, does not have a mask and now is in need of all supplies. Night terrors and Anxiety Topiramate 50mg po BID. continue weekly with therapist for counseling due to depression. Use the [employer] academic coach tasia to help with meditation and exercises. RLS/ Sciatica, continue to wear compression stockings as this will help lessen discomfort in the legs. RX sent to [facility]. Continue 400 mg of magnesium qhs to prevent leg muscle cramping, spasms, pins needles. Labs Will re-check the Ferritin as it was low normal, b12 1486 take b12 every other day, AST /ALT is elevated, BUN is 4. Continue Alcoholic Anonymous meetings as needed and attending zoroastrianism for group therapy as needed. F/u in 3 months Orders: Orders RT PSG in-lab sleep titration 07/14/25 G47.33 - Obstructive sleep apnea (adult) (pediatric) Medications: Refilled ergocalciferol (vitamin D2) 1,250 mcg PO QWEEK 13 caps 0RF low vitamin d 3 months R79.89 - Other specified abnormal findings of blood chemistry topiramate take 2 tablets daily morning and night. 50 mg PO BID 60 tabs 0RF 1 month MDD 100mg G47.33 - Obstructive sleep apnea (adult) (pediatric) magnesium oxide 400 mg PO BEDTIME 30 tabs 6RF 30 days [compression stockings] As directed pressure 10-20 - light to moderate pressure 2 ea 0RF lymphedema I89.0 - Lymphedema, not elsewhere classified Patient Instructions: Sleep Hygiene provided: set a scheduled bedtime and wake time to help regulate the circadian rhythm and balance the release of pituitary hormones. Sleep in a dark room, temperatures below 68 degrees, and no devices n bed. Limit caffeinated products 6 hours prior to bed, and limit fluids 2-4 hours prior to bed. Gentle night yoga, diffusing essential oils, and playing soft music can be relaxing. Coding Level of Care Code Est Pt Level 4 (31119) Diagnoses ROEL (obstructive sleep apnea) G47.33 Low vitamin D level R79.89 RLS (restless legs syndrome) G25.81 Right sided sciatica M54.31 Hip pain, bilateral M25.551; M25.552 Night terrors F51.4 Muscle spasms of both lower extremities M62.838 Laterality: bilateral
--- OUTSIDE RECORDS SUMMARY | 2025-07-14 10:12 | XMS_ITS | Data Portability ---
Author Organization [facility], [facility] Address [address] [place] [address] Care Team Providers Care Retail Merchandising Specialist Name Role Phone SHANTE KIMBALL Primary Care Provider Assessment No assessment recorded. Plan of Treatment Reminders Order Date Submit Date Provider Last Modified By Organization Details Last Modified Time Details Appointments RECHECK 15 2024 11:00A Jeff Rasheed PA-C Not available Not available Not available Lab None recorded. Referral physical therapist referral - General non-impac t strengthe tonya and flexibili ty program with proprioce ptive training. 2024 025 anjali [facility] - [place] [facility] , [address] [facility] , [facility], [place], [address], 11/18/2024 12:48:21 Procedures None recorded. Surgeries None recorded. Imaging MRI, knee, w/o contrast - L knee mri without contrast ?ing MMT 2024 025 [facility] ([facility]), [address] [place], [address], 01/26/2025 08:25:37 MRI, knee, w/o contrast - R knee mri without contrast ?ing MMT 2024 025 [facility] ([facility]), [address] [place], [address], 01/25/2025 16:56:50 XR, knee, 4 or more view - room 214, bilateral knee 4v 2024 025 [facility], [address] [facility], [facility] [address], [place], [address], 11/18/2024 12:48:21 Medication Orders None recorded. Patient [...] a4ajBk vP9nXo QUaueC m3YtLR FvZlgJ JJ8mAn HZtai3 4n8402 AC0Kqb XmBU6K mKiQtr MwF INTERFACE [facility] Office [address] [facility]aristeo [facility] [address], [place], [address], 11/18/2024 11:26:57 11/18/19 25 11/18/2024 XR, knee, 4 or more view http:/ [email or web address] ?Encry pted=s hAaTro YD8dLq bEUv6g %2BXZw aYqtaq 0bqfl% 2Fg9IQ a4ajBk vP9nXo QUaueC m3YtLR FvZlJ JJ8mAn HZtai3 9j8604 AC0Kqb XmBU6K mKiQtr MwF INTERFACE [facility] Office [address] [facility]e [facility] [address], [place], [address], 11/18/2024 11:26:59 01/26/20 25 01/24/2025 MRI, knee, w/o contr ast [facility] Access ion Number : [id number] Patien t Name: Andressa Reese Record Number : [id number] Date of : 1975 Date of Exam: 2024 Referr ing Physic lorie: [facility] [address], [address] [place] [address] Exam: MR Knee (C-) CPT 20343 - Right Room Descri ption: [place] GE Pion 3T MR Knee (C-) CPT 02306 CLINIC AL INDICA TION: Reason For Exam: [...] ly Signed By: Jamie Munguia rd, MD [facility] ([facility]) [address], [place], [address], 01/26/2025 13:05:01 01/27/20 25 01/24/2025 MRI, knee, w/o contr ast [facility] Access ion Number : [id number] Patien t Name: Andressa Reese fabienne Medica [facility]son Record Number : [id number] Date of : 1975 Date of Exam: 2024 Referr ing Physic lorie: [facility] [address], [address] [place] [address] Exam: MR Knee (C-) CPT 07738 - Left Room Descri ption: [facility] Pion 3T MR Knee (C-) CPT 59245 CLINIC AL INDICA TION: Left knee pain [...] Electr onical ly Signed By: Jamie nieves [facility] ([facility]) [address], [place], [address], 01/26/2025 13:05:00 Result Notes Documentation Provider Name and Address Organization Details Recorded Time Xr, Knee, 4 Or More View : [email or web address]?E ncrypted=akFrIlsYC8uKqpXSq 6g%7TJOwjGuucg3gdfl%2Fg9IQ j0ohWdbM1yCiQNvurOv5LzPREh DhdQTQ8mVhQTbep24l9689IE6V biWeDC5QlIsDlpNoV Not Available [facility] 11/18/2024 11:26:58 Xr, Knee, 4 Or More View : [email or web address] ncrypted=iwSpDesLO6tUnrALe 6g%2PSYzbCjvyf6svni%2Fg9IQ o8yhTudG8sJaNNnmgHd5RuGBAg OjgAMG8jNjSXzzr84s6460IK7M ysSjSZ4LjPfMdqJuB Not Available [facility] 11/18/2024 11:27:00 Mri, Knee, W/o Contrast [facility]: [id number] Patient Name: Scott Miner Date of : 1975 Date of Exam: 01-24-2025 Referring Physician: Dylan Rasheed [facility] ([facility]) [address], [address] [place] [address] Exam: MR Knee (C-) CPT 84235 - Right Room Description: [place] Pion 3T MR Knee (C-) CPT 26470 CLINICAL INDICATION: Reason For Exam: S83.241S - [...] El's cyst Electronically Signed By: Jamie DENNY [facility] [place] - [facility] 01/26/2025 13:05:01 Mri, Knee, W/o Contrast : [facility] Accession Number: [id number] Patient Name: Scott Miner Date of : 1975 Date of Exam: 01-24-2025 Referring Physician: Dylan Rasheed [facility] ([facility]) [address], [address] [place] [address] Exam: MR Knee (C-) CPT 08392 - Left Room Description: [place] Pion 3T MR Knee (C-) CPT 96907 CLINICAL INDICATION: Left knee pain TECHNIQUE: MRI [...] soft tissue swelling Electronically Signed By: Jamie sheridan [facility] 01/26/2025 13:05:00 Problems Name Problem SNOMED Code Status Onset Date Resolution Date Notes Provider Name and Address Organization Details Recorded Time Primary gonarthrosi s, bilateral 042521352 Active 2024 Dylan Rasheed PA-C [address], [place], [address], [facility] 5 12:52:14 Bilateral osteoarthri tis of knees 2256438942531 07 Active 2024 LAMAR Piper'HEURMIRA [facility] 5 08:49:35 Problem Notes None recorded. Procedures Surgical History Date Name Laterality Status Provider Name and Address Organization Details Recorded Time 5 Euflexxa Knee Injection Antonio completed Dylan Rasheed PA-C [address], [place], [address], [facility] 02/03/2025 08:30:20 5 Euflexxa Knee Injection Antonio completed Dylan Rasheed PA-C [address], [place], [address], [facility] 01/30/2025 08:40:07 5 Euflexxa Knee Injection Antonio completed Dylan Rasheed PA-C [address], [place], [address], [facility] 01/26/2025 12:52:07 5 Sports Knee 4&1 completed Dylan Rasheed PA-C [address], [place], [address], [facility] 11/18/2024 12:45:37 Imaging Results None recorded. Procedure Notes None recorded. Medical Equipment None Reported. Allergies Allergen ID Allergen Name Allergen Category Reaction Reaction Severity Criticality Documentation Date Start Date Code Code System Note Provider Name and Address Organization Details Recorded Time 139779 Ambien medicatio n Not available Not available Not available 11/18/2024 35234 5 RxNorm Maria Ajessi Mccrary [facility] 11:18:09 80495 shrimp allergeni c extract food Not available Not available Not available 11/25/20232017 94770 2 RxNorm Aller gyRea ction : 'Naus ea/Vo mitin g/Judi rrhea '; Not Available [facility] 14:22:55 Medications Name Sig Start Date Stop [...] Updated DateTime 11/18/2024 167.64 cm 30.7 kg/m2 17539.55 g Maria A Mccrary [facility] 11/18/2024 11:17:35 Date Recorded Body height Body mass index (BMI) Body weight Provider Name and Address Organization Details Last Updated DateTime 01/21/2025 167.64 cm 30.7 kg/m2 13256.55 g JENNIE WITT [facility] 01/21/2025 09:23:23 Date Recorded Body height Body mass index (BMI) Body weight Provider Name and Address Organization Details Last Updated DateTime 01/29/2025 167.64 cm 30.7 kg/m2 44973.55 g DAISY PAGANIREZ [facility] 01/29/2025 09:35:32 Date Recorded Body height Body mass index (BMI) Body weight Provider Name and Address Organization Details Last Updated DateTime 02/03/2025 167.64 cm 30.7 kg/m2 17406.55 g Genesis Wilcox [facility] 02/03/2025 08:42:13 Social History None recorded. Functional Status None recorded. Mental Status None recorded. Family History Nothing Reported. Medical History Condition Response Sleep Apnea Y Gynecological HistoryNo gynecological history recorded. Obstetrics History GPAL:G 0 P 0 0 0 0 Past Encounters Encounter ID Performer Location Encounter Start Date Encounter Closed Date Diagnosis/Indication Diagnosis SNOMED-CT Code Diagnosis ICD10 Code Diagnosis IMO Codes Diagnosis Note [id number] [facility] [place] [address] [place] [address] 11/18/2024 11:04:49 12/07/2024 15:47:59 Pain of knee region 2428208493 M25.561 M25.562 G89.29 [id number] Primary go narthrosis, bilateral 304155857 M17.0 [id number] [facility] [place] [address] [place] [place] [address] 01/21/2025 09:13:06 02/08/2025 11:12:29 Tear of medial meniscus of left knee joint 3927162042 7104 S83.242S 57687168 Tear of me dial meniscus of right knee joint 1964389745 7102 S83.241S [id number] Primary go narthrosis, bilateral 231456270 M17.0 7900652 [id number] [facility] [place] [address] [place] [address] 01/29/2025 09:18:51 02/16/2025 14:06:35 Primary gonarthrosis, bilateral 780945642 M17.0 [id number] [facility] [address] [place] [address] 02/03/2025 08:21:02 02/22/2025 10:17:46 Primary gonarthrosis, bilateral 647938675 M17.0 1894643 Health Concerns Section Related Observation LastModified by Organization Detai ls LastModified Time None Recorded Concern Status LastModified by Organization Details LastModified Time None Recorded Advance Directives Directive None Recorded Payers Insurance Date Sequence Insurance Name Policy Number Policy Ross Covered Member ID Ross Member ID Guarantor Name 07/08/2025 1 [facility] - DOS ON OR AFTER 2022 - ONE CARE (MEDICARE REPLACEMENT/AD VANTAGE - HMO) Scott Miner [id number] Scott Miner Notes Date Note Type Note [...] Recheck for that. Dylan Rasheed PA-C [address], [place], [address], [facility] 11/18/2024 12:48:12 01/21/2025 text/html [...] and medically indicated. Dylan Rasheed PA-C [address], [place], [address], [facility] 01/26/2025 12:52:35 01/29/2025 text/html [...] follow up injection. Dylan Rasheed PA-C [address], [place], [address], [facility] 01/30/2025 08:40:50 02/03/2025 text/html I am [...] follow up injection. Dylan Rasheed PA-C [address], [place], [address], [facility] 02/03/2025 08:54:18 OBGyn Episode No OBEpisode recorded.
== END 2025-07-14 10:14 | disposition home or self-care (01) ==
LOC: HO.HSMC 09:14
PROVIDERS: PCP Pediatrics; Visit Provider Physician Assistant Medical
DX: G47.33 Obstructive sleep apnea (adult) (pediatric) (principal); R79.89 Other specified abnormal findings of blood chemistry; G25.81 Restless legs syndrome; M54.31 Sciatica, right side; M25.551 Pain in right hip; M25.552 Pain in left hip; F51.4 Sleep terrors [night terrors]; M62.838 Other muscle spasm
CPT/HCPCS: 99214

== ENCOUNTER → 2025-07-14 09:13 | Outpatient (BNVA) | payer OTHER, SELFPAY | PROVIDERS: PCP Pediatrics; Visit Provider Physician Assistant Medical | DX: G47.33 Obstructive sleep apnea (adult) (pediatric) (principal); F51.4 Sleep terrors [night terrors]; G25.81 Restless legs syndrome; M62.838 Other muscle spasm; M25.551 Pain in right hip; M25.552 Pain in left hip; M54.31 Sciatica, right side; R79.89 Other specified abnormal findings of blood chemistry | CPT/HCPCS: 99212 ==

== ENCOUNTER 2025-08-30 10:46 | Outpatient (REF) | payer OTHER, SELFPAY ==
[2025-08-31 15:49] LABS: Resp Syncy Virus RNA Qual PCR NEGATIVE (Negative); SARS COV2 PCR INHOUSE NEGATIVE (Negative)
== END 2025-08-30 10:47 | disposition home or self-care (01) ==
LOC: HO.CHCLNP 10:46
PROVIDERS: Visit Provider Family Medicine
DX: J06.9 Acute upper respiratory infection, unspecified (principal)
CPT/HCPCS: 87633; 87637

== ENCOUNTER 2025-09-21 17:49 | Outpatient (REF) | payer OTHER, SELFPAY ==
--- OUTSIDE RECORDS SUMMARY | 2025-09-21 11:45 | XMS_ITS | Encounter Summary ---
Author Organization [employer] Address [address] [facility] 7 [place] [address] Care Team Providers Care Hotel Service Manager Name Role Phone Key Rodríguez MD Primary Care Provider [phone] Reason for Visit * Reason Comments sick visit Encounter Details Date Type Department Care Team ([facility] st Contact Info) Description 09/21/2025 11:45 AM EST Office Visit [facility] [address] [place], [place] [address] Sophia Connolly DO [address] [place] [address] Vaginal itching (Primary Dx); Hemorrhoids, unspecified hemorrhoid type; Dysuria Social History Tobacco Use Types Packs/Day Years Used Date Smoking Tobacco: Former Cigarettes Passive Smoke Exposure: Past Smokeless Tobacco: Never Alcohol Use Standard Drinks/Week Comments Never 0 (1 standard drink = 0.6 oz pur e alcohol) Depression Answer Date Recorded Patient Health Questionnaire-9 Score 16 07/27/2025 Patient Health Questionnaire-9 Score 16 07/27/2025 Last PHQ-9: Questionnaire Data Not on file 1 09/26/2024 Housing Stability Answer Date Recorded What is your housing situation today? I have asim solis 07/27/[address] you li ve. Do you have problems with any of the following? None of the above 07/27/2025 Food Insecurity Answer Date Recorded Within the past 12 months, y ou worried that your food would run out before you got money to buy more: Sometimes True 2024 Within the past 12 months,th e food you bought just didn't last and you didn't have enough money to get more: Sometimes True 07/27/2025 Transportation Answer Date Recorded In the past 12 months, has l ack of transportation kept you from medical appts, meetings, work or from getting things needed for daily living? Yes, it has kept me from medical appointments or getting medications. 07/27/2025 Utilities Answer Date Recorded In the past 12 months, has t he electric, gas, oil or water company threatened to shut off services in your home? No 07/27/2025 Depression Answer Date Recorded Patient Health Questionnaire-2 Score 4 07/27/2025 Internet Access Answer Date Recorded Internet Access Q1 Yes 07/27/2025 Internet Access Q2 Not on file 07/27/2025 Comments Unknown Sex and Gender Information Value Date Recorded Sex Assigned at Female 07/23/2022 10:19 AM EDT Legal Sex Female 10:19 AM EDT Gender Identity Female 07/23/2022 10:19 AM EDT Sexual Orientation Choose not to disclose 2021 10:19 AM EDT documented as of this encounter Last Filed Vital Signs Vital Sign Reading Time Taken Comments Blood Pressure 118/90 09/21/2025 12:24 PM EST Pulse 88 09/21/2025 12:24 PM EST Temperature 36.7 C (98.1 F) 09/21/2025 12:24 PM EST Respiratory Rate 20 09/21/2025 12:24 PM EST Oxygen Saturation - - Inhaled Oxygen Concentration - - Weight 104 kg (228 lb 9.6 oz) 09/21/2025 12:24 P M EST Height 165.1 cm (5' 5 ) 09/21/2025 12:24 PM EST Body Mass Index 38.04 09/21/2025 12:24 PM EST documented in this encounter Plan of Treatment Upcoming Encounters Date Type Department Care Team (Late st Contact Info) Description 12/07/2025 10:15 AM EDT Office Visit [facility]ULT D[facility]AL [address] [place] [address] Rohit Fairchild Scheduled Orders Name Type Priority Associated Diagnoses Orde r Schedule Bacterial Vaginosis Microbiology Routine Vaginal itching Ordered: 09/21/2025 Chlamydia/N. Gonorrhoeae RNA, TMA, Vaginal Microbiology Routine Vaginal itching Ordered: 09/21/2025 Culture, Urine, Routine Microbiology Routine Dysuria Ordered: 09/21/2025 documented as of this encounter Procedures Procedure Name Priority Date/Time Associated Diagnosis Comments POCT URINALYSIS DIPSTICK Routine 09/21/2025 1:12 PM EST Dysuria documented in this encounter Results * (ABNORMAL) POCT Urinalysis (09/21/2025 1:12 PM EST) Color, UA Yellow Clarity, UA Clear Glucose, UA Negative Bilirubin, UA Negative Ketones, UA Negative Spec Grav, UA 1.005 Blood, UA Positive(A) Negative, None Detected Comment:Trace-intact pH, UA 6.5 Protein, UA Negative Urobilinogen, UA 0.2 Leukocytes, UA Negative Negative, Rare, Trace, 1+ (17), 2+ (35), 3+ (70), Trace (15) Nitrite, UA Negative Negative, None Detected Appearance, UA clear Urine (Urine, Random) 09/21/2025 1:12 PM EST Sophia Connolly DO POINT OF CARE TEST ENTER/JUAN T ORDERABLES Final Result documented in this encounter Visit Diagnoses Diagnosis Vaginal itching- Primary Pruritus of genital organs Hemorrhoids, unspecified hemorrhoid type Dysuria documented in this encounter Additional Health Concerns Assessment Noted Time PHQ-9 Depression Total Score: 16 025 10:01 AM EST documented as of this encounter Care Teams Hotel Service Manager Relationship Specialty Start Date End Date Key Rodríguez MD [address] [place] [address] PCP - General Family Medicine 09/23/18 documented as of this encounter
--- OUTSIDE RECORDS SUMMARY | 2025-09-21 19:16 | XMS_ITS | Encounter Summary ---
Author Organization [employer] Address [address] [facility] [address], [place] [address] Care Team Providers Care Guide Dog Mobility Instructor Name Role Phone Key Rodríguez MD Primary Care Provider [phone] Reason for Visit * Reason Onset Date Comments Durable Medical Equipment 11/05/2024 Encounter Details Date Type Department Care Team ([facility] st Contact Info) Description 11/05/2024 Telephone [facility] [address] [place] [address] Key Rodríguez MD [address] [place] [address] Durable Medical Equipment Social History Tobacco Use [...] ines. Pt is requesting a call back [phone] * Telephone Encounter - Vijay Barriga - 11/05/2024 10:41 AM EST Tc from pt requesting compression socks to be sent to ines. Pt is requesting a call back [phone] documented in this encounter Plan of Treatment Upcoming Encounters Date Type Department Care Team (Late st Contact Info) Description 12/07/2025 10:15 AM EDT Office Visit [facility]ULT [facility] [address] [place] [address] Rohit Fairchild documented as of this encounter Visit Diagnoses Not on filedocumented in this encounter Additional Health Concerns Assessment Noted Time PHQ-9 Depression Total Score: 9 03/03/20 24 3:00 PM EDT documented as of this encounter Care Teams Guide Dog Mobility Instructor Relationship Specialty Start Date End Date Key Rodríguez MD [address] [place] [address] PCP - General Family Medicine 09/23/18 documented as of this encounter
--- OUTSIDE RECORDS SUMMARY | 2025-09-21 19:16 | XMS_ITS | Encounter Summary ---
Author Organization [employer] Address [address] [facility] [address] [place] [address] Care Team Providers Care Snaker Tractor Driver Name Role Phone Key Rodríguez MD Primary Care Provider [phone] Reason for Visit * Reason Onset Date Comments Appointment 11/06/[address] [facility] Encounter Details Date Type Department Care Team (Late st Contact Info) Description 10/29/2023 Refill [facility] [address] [place] [address] Adarsh Booth FNP Bipolar affective disorder, remission status unspecified (CMS/[facility]) Social History Tobacco Use Types Packs/Day [...] Psych prescriber & still interested in seeing BEEF SELECTOR-Adarsh Booth. documented in this encounter Plan of Treatment Upcoming Encounters Date Type Department Care Team ([facility] st Contact Info) Description 12/07/2025 10:15 AM EDT Office Visit [facility]ULT [facility] [address] [place] [address] Rohit Fairchild documented as of this encounter Visit Diagnoses Diagnosis Bipolar affective disorder, remission status unspecified (CMS/HCC) ([facility]) documented in this encounter Additional Health Concerns Assessment Noted Time PHQ-9 Depression Total Score: 4 08/12/20 23 1:51 PM EST documented as of this encounter Care Teams Snaker Tractor Driver Relationship Specialty Start Date End Date Key Rodríguez MD [address] [place] [address] PCP - General Family Medicine 09/23/18 documented as of this encounter
--- OUTSIDE RECORDS SUMMARY | 2025-09-21 19:16 | XMS_ITS | Encounter Summary ---
Author Organization [employer] Address [address] [facility] 7t [place] [address] Care Team Providers Care Railroad Dining Car Stewardess Name Role Phone Key Rodríguez MD Primary Care Provider [phone] Encounter Details Date Type Department Care Team (Latest Contact Info) Description 09/21/2025 Travel Social History Tobacco Use Types Packs/Day [...] is your housing situation today? I have asimmorena solis 07/27/[address] you [...] Description 12/07/2025 10:15 AM EDT Office Visit [facility] [address] [place] [address] Rohit Fairchild documented as of this encounter Visit Diagnoses Not on filedocumented in this encounter Additional Health Concerns Assessment Noted Time PHQ-9 Depression Total Score: 16 025 10:01 AM EST documented as of this encounter Care Teams Railroad Dining Car Stewardess Relationship Specialty Start Date End Date Key Rodríguez MD [address] [place] [address] PCP - General Family Medicine 09/23/18 documented as of this encounter
--- OUTSIDE RECORDS SUMMARY | 2025-09-21 19:16 | XMS_ITS | Encounter Summary ---
Author Organization [employer] Address [address] [facility] [address], [place] [address] Care Team Providers Care Local City Driver Name Role Phone Key Rodríguez MD Primary Care Provider [phone] Reason for Visit * Reason Onset Date Comments Med Refill 05/25/2025 Encounter Details Date Type Department Care Team ([facility] st Contact Info) Description 05/25/2025 Telephone [facility] MED[facility]INE [address] [place] [address] Key Rodríguez MD [address] [place] [address] Med Refill Social History Tobacco Use Types [...] encounter Miscellaneous Notes * Telephone Encounter - Nikky Nuñez - 06/03/2025 2:57 [address] EDT Good afternoon Dr. Rodríguez, please review fax from [facility] endo scanned under media. Thank you. * Telephone Encounter - Ken Sung - 05/25/2025 3:13 PM EDT Tc from pt requesting a call back to clarify on a medication. Please contact pt at [phone]. documented in this encounter Plan of Treatment Upcoming Encounters Date Type Department Care Team (Late st Contact Info) Description 12/07/2025 10:15 AM EDT Office Visit [facility] ADULT D[facility]AL [address] [place] [address] Rohit Fairchild documented as of this encounter Visit Diagnoses Not on filedocumented in this encounter Additional Health Concerns Assessment Noted Time PHQ-9 Depression Total Score: 9 03/03/20 24 3:00 PM EDT documented as of this encounter Care Teams Local City Driver Relationship Specialty Start Date End Date Key Rodríguez MD [address] [place] [address] PCP - General Family Medicine 09/23/18 documented as of this encounter
--- OUTSIDE RECORDS SUMMARY | 2025-09-21 19:16 | XMS_ITS | Encounter Summary ---
Author Organization [employer] Address [address] [facility] [address], [place] [address] Care Team Providers Care Rayon Coner Name Role Phone Key Rodríguez MD Primary Care Provider [phone] Reason for Visit * Reason Onset Date Comments Med Refill 12/02/2023 Encounter Details Date Type Department Care Team ([facility] st Contact Info) Description 12/02/2023 Telephone [facility] MED[facility]INE [address] [place] [address] Key Rodríguez MD [address] [place] [address] Med Refill Social History Tobacco Use Types [...] Upcoming Encounters Date Type Department Care Team ([facility] st Contact Info) Description 12/07/2025 10:15 AM EDT Office Visit [facility] ADULT DENTAL [address] [place] [address] Rohit Fairchild documented as of this encounter Visit Diagnoses Not on filedocumented in this encounter Additional Health Concerns Assessment Noted Time PHQ-9 Depression Total Score: 3 12/02/19 24 11:23 AM EDT documented as of this encounter Care Teams Rayon Coner Relationship Specialty Start Date End Date Key Rodríguez MD [address] [place] [address] PCP - General Family Medicine 09/23/18 documented as of this encounter
--- OUTSIDE RECORDS SUMMARY | 2025-09-21 19:16 | XMS_ITS | Encounter Summary ---
Author Organization [employer] Address [address] [facility] [place], [place] [address] Care Team Providers Care Law Office Receptionist Name Role Phone Key Rodríguez MD Primary Care Provider [phone] Reason for Visit * Reason Onset Date Comments Covid-19 Testing 10/01/2023 Patient 2 of 2 Encounter Details Date Type Department Care Team ([facility] st Contact Info) Description 10/01/2023 Telephone [facility] MEDICINE [address] [place] [address] Key Rodríguez MD [address] [place] [phone] Covid-19 Testing (Patient 2 of 2) Social [...] the rapid home covid tests available at [facility] because her son got a false negative result on that test the same day he later tested positive for covid at our [facility] office. Patient's son scheduled for f/u [...] coming into the office. Routing back to [facility] nurses to evaluate priority for SDC [...] 10:15 AM EDT Office Visit [facility] ADULT DENTAL [address] [place] [address] Rohit Fairchild documented as of this encounter Visit Diagnoses Not on filedocumented in this encounter Additional Health Concerns Assessment Noted Time PHQ-9 Depression Total Score: 4 08/12/20 23 1:51 PM EST documented as of this encounter Care Teams Law Office Receptionist Relationship Specialty Start Date End Date Key Rodríguez MD [address] [place] [id number] PCP - General Family Medicine 09/23/18 documented as of this encounter
--- OUTSIDE RECORDS SUMMARY | 2025-09-21 19:16 | XMS_ITS | Encounter Summary ---
Author Organization [email or web address] Address [address] [facility] [address] [place] [address] Care Team Providers Care Site Coordinator Name Role Phone Key Rodríguez MD Primary Care Provider [phone] Encounter Details Date Type Department Care Team ([facility] Contact Info) Description 04/08/2023 Orders Only [facility] MEDICINE [address] [place] [address] Anika Messina LPN Social History Tobacco Use [...] Description 12/07/2025 10:15 AM EDT Office Visit [facility] ADULT DENTAL [address] [place], [place] [id number] Rohit Fairchild documented as of this encounter Visit Diagnoses Not on filedocumented in this encounter Additional Health Concerns Assessment Noted Time PHQ-9 Depression Total Score: 9 03/25/20 23 10:35 AM EDT documented as of this encounter Care Teams Site Coordinator Relationship Specialty Start Date End Date Key Rodríguez MD [address] [place], [place] [id number] PCP - General Family Medicine 09/23/18 documented as of this encounter
--- OUTSIDE RECORDS SUMMARY | 2025-09-21 19:16 | XMS_ITS | Encounter Summary ---
Author Organization [employer] Address [address] [facility] [address] [place] [address] Care Team Providers Care Civil Structural Designer Name Role Phone Key Rodríguez MD Primary Care Provider [phone] Reason for Visit * Reason Comments Med Refill Encounter Details Date Type Department Care Team ([facility] Contact Info) Description 02/05/2023 Refill [facility] MED & PEDS [address] [place] [address] eKy Rodríguez MD [address] [place] [address] Social History Tobacco Use Types Packs/Day Years [...] Department Care Team (Late Contact Info) Description 12/07/2025 10:15 AM EDT Office Visit [facility] ADULT DENTAL [address] [place] [address] Rohit Fairchild documented as of this encounter Visit Diagnoses Not on filedocumented in this encounter Additional Health Concerns Assessment Noted Time PHQ-9 Depression Total Score: 12 023 11:24 AM EDT documented as of this encounter Care Teams Civil Structural Designer Relationship Specialty Start Date End Date Key Rodríguez MD [address] [place] [address] PCP - General Family Medicine 09/23/18 documented as of this encounter
--- OUTSIDE RECORDS SUMMARY | 2025-09-21 19:16 | XMS_ITS | Encounter Summary ---
Author Organization [employer] Address [address] [place] [address] [address] [address] Care Team Providers Care Brand Sales Manager Name Role Phone Key Rodríguez MD Primary Care Provider [phone] Encounter Details Date Type Department Care Team (Latest Contact Info) Description 11/29/[address] [facility] CONVERSIONS Dental, Provider, DDS Social History Tobacco [...] 10:15 AM EDT Office Visit [facility] ADULT DENTAL [address] [place] [address] Rohit Fairchild documented as of this encounter Visit Diagnoses Not on filedocumented in this encounter Care Teams Brand Sales Manager Relationship Specialty Start Date End Date Key Rodríguez MD [address] [place] [address] PCP - General Family Medicine 09/23/18 documented as of this encounter
--- OUTSIDE RECORDS SUMMARY | 2025-09-21 19:16 | XMS_ITS | Encounter Summary ---
Author Organization [employer] Address [address] [facility] [address] [address] Care Team Providers Care Tyre Fitter Name Role Phone Key Rodríguez MD Primary Care Provider [phone] Encounter Details Date Type Department Care Team (Latest Contact Info) Description 01/20/2019 Abstract [facility] CONVERSIONS Dental, Provider, DDS Social History Tobacco [...] Care Team ( st Contact Info) Description 12/07/2025 10:15 AM EDT Office Visit [facility] ADULT DENTAL [address] [place] [address] Rohit Fairchild documented as of this encounter Visit Diagnoses Not on filedocumented in this encounter Care Teams Tyre Fitter Relationship Specialty Start Date End Date Key Rodríguez MD [address] [place] [address] PCP - General Family Medicine 09/23/18 documented as of this encounter
--- OUTSIDE RECORDS SUMMARY | 2025-09-21 19:16 | XMS_ITS | Encounter Summary ---
Author Organization [employer] Address [address] [facility] [address] [place] [address] Care Team Providers Care Embossing Toolsetter Name Role Phone Key Rodríguez MD Primary Care Provider [phone] Reason for Visit * Reason Onset Date Comments Nurse Triage 09/20/2025 Encounter Details Date Type Department Care Team ([facility] st Contact Info) Description 09/20/2025 Telephone [facility] MEDICINE [address] [place] [address] Key Rodríguez MD [address] [place] [address] Nurse Triage Social History Tobacco Use Types [...] encounter Miscellaneous Notes * Telephone Encounter - Tonie Pak RN - 09/20/2025 1:44 PM EST TC placed to pt for triage. Pt reports they had a sinus infection approximately 3 weeks ago and wasprescribed antibiotics. Pt reports they got better and then developed a double ear infection and strep throat last week. Pt reports they were prescribed antibiotics for those infections as well. Pt reports Saturday09/17/25, they began with foul smelling vaginal discharge and discomfort. Pt reports it has continued to worsen over the last few days. Pt reports vaginal discomfort, foul smelling vaginal discharge, white vaginal discharge. Pt denies fever or chills. Advised pt to come to [facility] today for evaluation. Pt requesting appointment tomorrow. Pt booked for sick on site with at [facility] tomorrow 09/21/25 at 11:45 AM. Pt agreeable to appointment and denies questions at this time. Pt advised to contact office with new or worsening symptoms. Pt agreeable to plan. Protocol Used: Vaginal Discharge (Adult) Protocol-Based Disposition: See in Office or Video Visit within 3 Days Positive Triage Questions: * Bad smelling vaginal discharge * Symptoms of a yeast infection (i.e., itchy, white discharge, not bad smelling) and not improved > 3 days following Care Advice * All higher-acuity triage questions were negative. Care Advice Discussed: * Reasons To Call Back - Discharge becomes yellow or green - Discharge becomes foul smelling or itchy - Fever or abdomen pain occur - You become worse * Telephone Encounter - Antoine Pineda - 09/20/2025 12:42 PM EST Symptom: Vaginal Symptoms - Not Bleeding Outcome: Schedule an urgent appointment (within 4 hours) or talk to a nurse or provider soon Reason: Foul-smelling vaginal discharge Contact pt at [phone] documented in this encounter Plan of Treatment Upcoming Encounters Date Type Department Care Team ([facility] st Contact Info) Description 12/07/2025 10:15 AM EDT Office Visit [facility] ADULT DENTAL [address] [place] [address] Rohit Fairchild documented as of this encounter Visit Diagnoses Not on filedocumented in this encounter Additional Health Concerns Assessment Noted Time PHQ-9 Depression Total Score: 16 025 10:01 AM EST documented as of this encounter Care Teams Embossing Toolsetter Relationship Specialty Start Date End Date Key Rodríguez MD [address] [place] [address] PCP - General Family Medicine 09/23/18 documented as of this encounter
--- OUTSIDE RECORDS SUMMARY | 2025-09-21 19:16 | XMS_ITS | Encounter Summary ---
Author Organization [employer] Address [address] [facility] [address] [place] [address] Care Team Providers Care Early Childhood Education Worker Name Role Phone Key Rodríguez MD Primary Care Provider [phone] Reason for Visit * Reason Comments Med Refill Encounter Details Date Type Department Care Team ([facility] Contact Info) Description 02/19/2023 Refill [facility] MED & PEDS [address] [place] [address] Key Rodríguez MD [address] [place] [address] Social History Tobacco Use Types Packs/Day Years [...] Description 12/07/2025 10:15 AM EDT Office Visit [facility] ADULT DENTAL [address] [place] [address] Rohit Fairchild documented as of this encounter Visit Diagnoses Not on filedocumented in this encounter Additional Health Concerns Assessment Noted Time PHQ-9 Depression Total Score: 13 023 3:00 PM EDT documented as of this encounter Care Teams Early Childhood Education Worker Relationship Specialty Start Date End Date Key Rodríguez MD [address] [place] [address] PCP - General Family Medicine 09/23/18 documented as of this encounter
--- OUTSIDE RECORDS SUMMARY | 2025-09-21 19:16 | XMS_ITS | Encounter Summary ---
Author Organization [employer] Address [address] [facility] [address] [place] [address] Care Team Providers Care Video Journalist Name Role Phone Key Rodríguez MD Primary Care Provider [phone] Encounter Details Date Type Department Care Team (Late st Contact Info) Description 02/05/2024 Telephone [facility] ADULT DENTAL [address] [place] [address] Jason Duran, DMD [address] [place] [address] Social History Tobacco Use Types Packs/Day Years [...] Patient insurance could not pay for tuff [employer] insurance says if u send the regular [...] 10:15 AM EDT Office Visit [facility] ADULT DENTAL [address] [place] [address] Rohit Fairchild documented as of this encounter Visit Diagnoses Not on filedocumented in this encounter Additional Health Concerns Assessment Noted Time PHQ-9 Depression Total Score: 3 12/02/19 24 11:23 AM EDT documented as of this encounter Care Teams Video Journalist Relationship Specialty Start Date End Date Key Rodríguez MD [address] [place] [address] PCP - General Family Medicine 09/23/18 documented as of this encounter
--- OUTSIDE RECORDS SUMMARY | 2025-09-21 19:16 | XMS_ITS | Encounter Summary ---
Author Organization [employer] Address [address] [facility] [address] [place] [address] Care Team Providers Care Pinball Machine Repairer Name Role Phone Key Rodríguez MD Primary Care Provider [phone] Encounter Details Date Type Department Care Team ([facility] Contact Info) Description 02/05/2023 Orders Only [facility] MED & PEDS [address] [place] [address] Jacki Steen LPN Social History Tobacco Use [...] Description 12/07/2025 10:15 AM EDT Office Visit [facility] ADULT DENTAL [address] [place], [place] [phone] Rohit Fairchild documented as of this encounter Visit Diagnoses Not on filedocumented in this encounter Additional Health Concerns Assessment Noted Time PHQ-9 Depression Total Score: 12 023 11:24 AM EDT documented as of this encounter Care Teams Pinball Machine Repairer Relationship Specialty Start Date End Date Key Rodríguez MD [address] [place] [address] PCP - General Family Medicine 09/23/18 documented as of this encounter
--- OUTSIDE RECORDS SUMMARY | 2025-09-21 19:16 | XMS_ITS | Clinical Summary ---
Author Organization [employer] Address [address] [facility] [address] [place] [address] Care Team Providers Care Housekeeping Worker Name Role Phone Key Rodríguez MD Primary Care Provider [phone] Allergies Active Allergy Reactions Criticality Noted Date Comments Cat Dander 05/06/2023 Dust Mite Extract 02/04/2024 Latex Rash Low 08/29/2022 OK to give Camille injections. Naltrexone (Deterrent) 06/07/2025 Shellfish Allergy Swelling 08/29/2022 Zolpidem Hallucinations 09/22/2019 Medications * This document contains information received from the source organization and may not represent a complete record from that organization. ferrous sulfate 325 (65 Fe) MG tablet Take 1 tablet by mouth every 12 (twelve) hours. 016 Active ergocalciferol (Vitamin D2) 1.25 MG (00244 UT) capsuleIndications :Vitamin D deficiency TAKE 1 [...] 1.1-5 % pasteIndications:D entin hypersensitivity,D ental caries [place] teeth for 2 minutes, morning and night. Spit, do not rinse. Do not eat or drink anything for 30 minutes following brushing. 112 g 3 Active cyanocobalamin (Vitamin B-12) 500 MCG tablet [...] Once per day. 30 tablet 11 025 2025 Active hydrocortisone 2.5 % cream Apply topically 2 times daily. 15 g 1 Active clotrimazole (Lotrimin) 1 % cream Apply topically 2 times daily. 30 g Active Blood Pressure kit 1 each 2 times daily. 1 kit 025 2025 Active omeprazole (PriLOSEC) [address] capsule TAKE 1 CAPSULE(40 MG) BY MOUTH BEFORE BREAKFAST. DO NOT CRUSH OR CHEW 90 capsule 1 Active topiramate (Topamax) 100 MG tabletIndications: Bipolar affective disorder, remission status unspecified (CMS/HCC) ([facility]) TAKE 1 TABLET BY MOUTH TWICE A DAY. TAKE WITH TOPIRAMATE 50 MG TWICE DAILY. 180 tablet 3 Active topiramate 50 MG tablet TAKE 1 TABLET BY MOUTH TWICE A DAY. TAKE WITH TOPIRAMATE 100 MG TWICE DAILY. 180 tablet 3 Active hydrOXYzine pamoate (Vistaril) 25 MG capsule Active cyclobenzaprine (Flexeril) 5 MG tablet Take 5 mg by mouth if needed in the morning, at noon, and at bedtime. Active magnesium oxide (Mag-Ox) 400 (240 Mg) MG tablet Take 400 mg by mouth at bedtime. Active Sod Fluoride-Potassium Nitrate 1.1-5 % gelIndications:Den tin hypersensitivity [place] teeth for 2 minutes, morning and night. Spit, do not rinse. Do not eat or drink anything for 30 minutes following use. 112 g 3 Active acetaminophen-code ine (Tylenol w/ Codeine #3) 300-30 MG tabletIndications: Chronic bilateral low back pain without sciatica Take 1 tablet by mouth every 6 (six) hours if needed for severe pain. 20 tablet Active diclofenac (Voltaren) 75 MG EC tablet TAKE 1 TABLET(75 MG) BY MOUTH TWICE DAILY 60 tablet 1 Active ibuprofen 800 MG tabletIndications: Chronic pain of right knee Take 1 tablet (800 mg) by mouth every 8 (eight) hours if needed for moderate pain. 30 tablet 2025 Active Ventolin HFA 108 (90 Base) MCG/ACT inhalerIndications :Bipolar disorder, in partial remission, most recent episode mixed (CMS/HCC) (HCC),Moderate persistent asthma in adult without complication INHALE TWO puffs FOUR TIMES DAILY NEEDED 18 g 3 Active fluticasone furoate (Arnuity Ellipta) 200 MCG/ACT inhaler Inhale 1 puff Once per day. Rinse mouth with water after use to reduce aftertaste and incidence of candidiasis. Do not swallow. 1 each 11 2025 Active acetaminophen (Tylenol Extra Strength) 500 MG tablet Take 1 tablet (500 mg) by mouth every 6 (six) hours if needed for mild pain. 120 tablet 2024 Active sodium chloride ([place] Nasal [place]) 0.65 % nasal spray Administer 1 spray into each nostril if needed for congestion. 30 mL 2025 Active fluticasone (Flonase) 50 MCG/ACT nasal spray Administer 1 spray into each nostril Once per day. 16 g 2024 Active medroxyPROGESTERon e (Depo-Provera) 150 MG/ML injectionIndicatio ns:Uses control Inject 1 mL (150 mg) into the muscle every 3 (three) months. 1 mL Active cloNIDine (Catapres) 0.1 MG tablet TAKE 1 TABLET BY MOUTH TWICE DAILY 60 tablet 1 Active fluconazole (Diflucan) 150 MG tablet Take 1 tablet (150 mg) by mouth 1 (one) time for 1 dose. Repeat in 3 days 2 tablet 025 2024 Active terconazole (Terazol 7) 0.4 % vaginal cream Insert 1 applicator into the vagina at bedtime for 7 days. 45 g 025 2025 Active hydrocortisone (Proctosol HC) 2.5 % rectal cream Insert into the rectum if needed in the morning and at bedtime for hemorrhoids. 28 g 1 Active witch anibal-glycerin (Tucks) pad Apply topically if needed for irritation or hemorrhoids. 96 each 3 Active amoxicillin-clavul anate (Augmentin) 875-125 MG tablet Take 1 tablet by mouth 2 times daily. Active folic acid (Folvite) 1 MG tablet Take 1 tablet (1 mg) by mouth Once per day. 30 tablet 11 024 2024 cloNIDine (Catapres) 0.1 MG tablet TAKE 1 TABLET BY MOUTH TWICE DAILY 60 tablet 1 025 2024 Discontinued medroxyPROGESTERon e (Depo-Provera) 150 MG/ML injectionIndicatio ns:Uses control Inject 1 mL (150 mg) into the muscle every 3 (three) months. 1 mL 3 025 2024 Discontinued(R eorder (will not trigger notification to Pharmacy)) amoxicillin-clavul anate (Augmentin) 875-125 MG tablet Take 1 tablet by mouth 2 times daily for 7 days. 14 tablet 2024 amoxicillin-clavul anate (Augmentin) 875-125 MG tablet Take 1 tablet by mouth 2 times daily for 3 days. 6 tablet 025 2024 Hospital, Clinic, or Other Facility Administered Medication Ordered Dose Route Frequency Start Date End Date Status medroxyPROGESTERone (Depo-Provera) injection 150 mgIndications:Encounter for surveillance of injectable contraceptive 150 mg IM Once 12/10/2024 Active medroxyPROGESTERone (Depo-Provera) injection 150 mgIndications:Encounter for surveillance of injectable contraceptive 150 mg IM Once 08/30/2025 08/30/2025 Ended Active Problems Problem Noted Date Diagnosed Date Subacute pansinusitis 08/23/2025 Assessment & Plan (08/23/2025 12:30 PM EST): Rapid viral testing negative today, Rx Augmentin x 7 days Rest (sleep at least 8 hours a night), out of work x 2 days, she can go back after 48 hours on antibiotics Hydrate with plenty of water (avoid caffeine and alcohol). Use saline nose drops to loosen mucus + Flonase nasal Take Acetaminophen (Tylenol )/Ibuprofen as needed to reduce fever, headache, body aches or discomfort Gargle with salt water and use throat sprays/lozenges for throat pain. Use heated, humidified air. If you do not have a humidifier, take hot showers. Cover coughs and sneezes using the crook of your elbow. If you have a fever, stay home and away from others (self isolation) until fever-free for 72 hours (temperature should be less than 100 F without medication). Viral upper respiratory tract infection 11/04/19 25 [...] She lost care from therapy services with GUILLERMINA, and missed appts with Adarsh Hansen for psychopharmacology. Recent in the family has increased sxs. Pt is looking to reconnect with MH services. PLAN: (check all that apply) Behavioral Health Integration Plan Internal Cold handoff internal psychiatric provider External [facility] self-referred for OP individual therapy and psychiatry services with [facility]. Patient Self Plan Patient to utilize skills provided in intervention , [facility], Comply with [...] hallucinations, anger and explosive personality elements, ?PTSD. Peculiar was previously helpful, but developed tremor of hands and lips when took Peculiar consistently at 300 mg 2 daily. She [...] hallucinations, anger and explosive personality elements, ?PTSD. Peculiar was previously helpful, but developed tremor of hands and lips when took Peculiar consistently at 300 mg 2 daily. She [...] hallucinations, anger and explosive personality elements, ?PTSD. Peculiar was previously helpful, but developed tremor of hands and lips when took Peculiar consistently at 300 mg 2 daily. She [...] hallucinations, anger and explosive personality elements, ?PTSD. Peculiar was previously helpful, but developed tremor of hands and lips when took Peculiar consistently at 300 mg 2 daily. She [...] hallucinations, anger and explosive personality elements, ?PTSD. Peculiar was previously helpful, but developed tremor of hands and lips when took Peculiar consistently at 300 mg 2 daily. She [...] hallucinations, anger and explosive personality elements, ?PTSD. Peculiar was previously helpful, but developed tremor of hands and lips when took Peculiar consistently at 300 mg 2 daily. She is on Depo Provera, with regular follow up, so at very low risk of unintended . Doing much better with Topiramate 100 mg BID. F/U with therapist as usual and F/U with me in 6 weeks. She agrees with the plan. Assessment & Plan (10/01/2022 11:35 AM EST): with hallucinations, anger and explosive personality elements, ?PTSD. Peculiar was previously helpful, but developed tremor of hands and lips when took Peculiar consistently at 300 mg 2 daily. She [...] Encounters Date Type Department Care Team Description 09/21/2025 11:45 AM EST Office Visit [facility] [address] [place] [phone] Sophia Connolly DO Vaginal itching (Primary Dx); Hemorrhoids, unspecified hemorrhoid type; Dysuria 09/21/2025 Travel 09/20/2025 Telephone [facility] [address] [place] [phone] Key Rodríguez MD Nurse Triage 09/02/2025 Refill [facility] [address] [place] [phone] Key Rodríguez MD 09/01/2025 Telephone [facility] [address] [place] [address] Angelina Tate, CODIE 08/31/2025 Telephone [facility] [address] [place] [address] Key Rodríguez MD [facility] 08/30/2025 10:00 AM EST Office Visit [facility] [address] [place] [address] Keila Colby MD Viral upper respiratory tract infection (Primary Dx); Encounter for surveillance of injectable contraceptive 08/30/2025 Orders Only [facility] [address] [place] [address] Keila Colby MD 08/30/2025 Refill [facility] [address] [place] [address] Keila Colby MD Uses control 08/30/2025 Telephone [facility] [address] [place] [address] Key Rodríguez MD 08/30/2025 Travel 08/23/2025 10:40 AM EST Office Visit [facility] [address] [place] [phone] Anna Marion MD Viral upper respiratory tract infection (Primary Dx); Subacute pansinusitis 08/23/2025 Travel 07/27/2025 9:00 AM EST Office Visit [facility] [address] [place] [address] Key Rodríguez MD ETOH abuse (Primary Dx); Bipolar disorder, in partial remission, most recent episode mixed (CMS/HCC) (HCC); Moderate persistent asthma in adult without complication; Chronic bilateral low back pain without sciatica; Breast cancer screening by mammogram; ROEL (obstructive sleep apnea) 07/27/2025 Travel 07/26/2025 Travel 07/26/2025 Telephone [facility] [address] [place] [address] Key Rodríguez MD Chart Prep 07/05/2025 11:30 AM EDT Office Visit [facility] [address] [place] [address] [place], Reta, MACHINE PECAN PICKER Chronic pain of right knee (Primary Dx) 07/05/2025 Travel 07/05/2025 Telephone [facility] [address] [place] [phone] Key Rodríguez MD Nurse Triage 06/29/2025 Refill [facility] [address] [place] [address] Key Rodríguez MD from Last 3 Months Immunizations Immunization Administration Dates Next Due Influenza injectable quadriv alent IIV4 with preservative 05/30/2023,08/07/2018,06/29/2016 Influenza injectable quadriv alent preservative free 07/27/2022,07/12/2021,06/21/2020,2018,07/11/2017 Influenza, Recombinant, inje ctable, preservative free 06/02/2025 Influenza, Split (incl. kalpesh fied surface antigen) 08/03/2013,06/11/2012 Influenza, seasonal, injecta ble, preservative free 06/09/2015 MMR 02/22/2014 Tdap 02/24/2014 Social History Tobacco Use Types Packs/Day Years Used Date Smoking Tobacco: Former Cigarettes Passive Smoke Exposure: Past Smokeless Tobacco: Never Tobacco Cessation:Counseling Given: Not [...] 20 09/21/2025 12:24 PM EST Oxygen Saturation 98% 08/30/2025 9:54 AM EST Inhaled Oxygen Concentration - - Weight 104 kg (228 lb 9.6 oz) 09/21/2025 12:24 P M EST Height 165.1 cm (5' 5 ) 09/21/2025 12:24 PM EST Body Mass Index 38.04 09/21/2025 12:24 PM EST Plan of Treatment Upcoming Encounters Date Type Department Care Team (Late st Contact Info) Description 12/07/2025 10:15 AM EDT Office Visit [facility] [address] [place] [address] Rohit Fairchild Health Maintenance Due Date Last Done Comments CT Colonography 1976 Colonoscopy 1976 FIT 1976 Lipid Panel 1976 Sigmoidoscopy 1976 Hepatitis B Vaccines (1 of 3 - 19+ 3-dose series) 11/22/1995 Pneumococcal Vaccine: Pediatrics (0 to 5 Years) and At-Risk Patients (6 to 49) Years (1 of 2 - PCV) 11/22/1995 Mammogram 2016 DTaP/Tdap/Td Vaccines (2 - Td or Tdap) 02/25/2024 02/24/2014 FOBT 06/18/2025 06/18/2024, 06/12/2024 Family Planning (PISQ) 09/24/2025 09/24/2024 Dental Oral Exam 12/06/2025 06/07/2025, , 08/29/2022 Dental Prophylaxis 12/06/2025 06/07/2025, 0 02/04/2024, 08/29/2022 Depression Monitoring 01/24/2026 07/27/2025, 025 Dental X-Ray: Bitewings 06/08/2026 06/07/20 25, 02/04/2024, 08/29/2022 Disability Screening 07/26/2026 07/26/2025 Alcohol/Substance Use Screening 07/27/2026 07/27/2025 SDOH Screening 07/27/2026 07/27/2025 Tobacco Screening 08/30/2026 08/30/2025 Zoster Vaccines (1 of 2) 2026 Dental X-Ray: Full Mouth 02/04/2027 02/04/2024 Cervical Cancer Screening 02/22/2027 HPV/Cotest 02/22/2027 02/22/2022, 09/04/2018 Pap Smear 02/22/2027 02/22/2022 Colorectal Cancer Screening 06/18/2027 FIT DNA/Cologuard 06/18/2027 06/18/2024, 06/12/2024 RSV Patients and Patients Aged 60 years or older (1 - 1-dose 75+ series) 11/22/2051 HIV Screening Completed 07/12/2021, 07/12/2021 Hepatitis C Screening Completed 07/12/2021 COVID-19 Vaccine Completed 06/02/2025, , 03/08/2021, Additional history exists Influenza Vaccine Completed 06/02/2025, , 07/27/2022, Additional history exists HIB Vaccines Aged Out No longer eligi [...] DIPSTICK Routine 09/21/2025 1:12 PM EST Dysuria POCT RAPID COVID ANTIGEN Routine 08/30/2025 10:24 AM EST Viral upper respiratory tract infection POCT RAPID STREP A Routine 08/30/2025 10 :23 AM EST Viral upper respiratory tract infection POCT INFLUENZA B Routine 08/30/2025 10:2 3 AM EST Viral upper respiratory tract infection POCT INFLUENZA A Routine 08/30/2025 10:2 3 AM EST Viral upper respiratory tract infection SARS COV2/INFLUENZA A/B AND RSV RNA QL NAAT Routine 08/30/2025 10:10 AM EST POCT COVID-19 AG SALGADO ID NOW Routine 08/23/2025 11:19 AM EST Viral upper respiratory tract infection POCT INFLUENZA A (ID NOW RAPID MOLECULAR) Routine 08/23/2025 11:19 AM EST Viral upper respiratory tract infection POCT INFLUENZA B (ID NOW RAPID MOLECULAR) Routine 08/23/2025 11:18 AM EST Viral upper respiratory tract infection PROPHYLAXIS - ADULT Routine 06/07/2025 1 1:00 AM EDT BITEWINGS - 4 RADIOGRAPHIC IMAGES Routine 06/07/2025 11:00 AM EDT PERIODIC ORAL EVALUATION - ESTABLISHED PATIENT Routine 06/07/2025 11:00 AM EDT Dentin hypersensitivity Bruxism Dental caries HM FIT DNA/COLOGUARD CANCER SCREENING Routine 06/18/2024 INTRAORAL - COMPLETE SERIES OF RADIOGRAPHIC IMAGES [...] Recently Relevant to Health Maintenance Results * (ABNORMAL) POCT Urinalysis (09/21/2025 1:12 PM EST) Pathologist [facility] Color, UA Yellow Clarity, UA Clear Glucose, [...] CARE TEST ENTER/JUAN T ORDERABLES Final Result * POCT Rapid Covid-19 BinaxNOW (08/30/2025 10:24 AM EST) [facility] Rapid COVID Ag Negative QC Media Lot # [id number] Lot# Expiration Date [id number] Swab 08/30/2025 10:2 4 AM EST Keila Colby MD POINT OF CARE TEST ENTER/EDIT ORDERABLES Final Result * POCT Rapid Influenza B OSOM (08/30/2025 10:23 AM EST) [facility] Rapid Influenza B Ag Negative Negative, Indeterminate QC Media Lot # [id number] Lot# Expiration Date [id number] Swab 08/30/2025 10:2 3 AM EST Keila Colby MD POINT OF CARE TEST ENTER/EDIT ORDERABLES Final Result * POCT Rapid Influenza A OSOM (08/30/2025 10:23 AM EST) [facility] Rapid Influenza A Ag Negative Negative, Indeterminate QC Media Lot # [id number] Lot# Expiration Date [id number] Swab Nasopharyngeal structure / Unknown 08/30/2025 10:23 AM EST Keila Colby MD POINT OF CARE TEST ENTER/EDIT ORDERABLES Final Result * POCT Rapid Strep A OSOM (08/30/2025 10:23 AM EST) [facility] Rapid Strep A Screen Negative Negative, None Detected QC Media Lot # [id number] Lot# Expiration Date [id number] Swab 08/30/2025 10:2 3 AM EST Keila Colby MD POINT OF CARE TEST ENTER/EDIT ORDERABLES Final Result * SARS-CoV-2 RNA, Influenza A/B, and RSV RNA, Ql NAAT (08/30/2025 10:10 AM EST) [facility] Influenza A PCR NEGATIVE Negative [facility] Influenza B PCR NEGATIVE Negative [facility] Resp Syncy Virus RNA Qual PCR NEGATIVE Negative [facility] SARS COV2 PCR NEGATIVE Negative [facility] Comment:All test results mus t be correlated with clinical findings.Negative results do not preclude SARS-CoV2, influenza Avirus, influenza B virus and/or RSV infectionand should not be used as the sole basis for treatment orother patient management decisions. Negative results must becombined with clinical observations, patient history, andepidemiological information.This test has not been evaluated for monitoring treatment ofinfection.This test has been authorized by the FDA under an EmergencyUse Authorization (EUA) for use by authorized laboratories.Testing performed on the [employer] GeneXpert utilizingreal-time RT-PCR.All SARS CoV2 and positive influenza A/B results arereported to [facility]. 08/30/2025 10:1 0 AM EST 08/31/2025 2:51 PM EST Keila Colby MD LAB MICROBIOLOGY - GENERAL OR DERABLES Final Result Performing Organization Address [facility]/ZIP Co de Phone Number [facility] [address] [place] [phone] * POCT Rapid Influenza A SALGADO ID NOW (08/23/2025 11:19 AM EST) Pathologist [facility] Influenza A Negative Negative, Indeterminate [facility] QC Media Lot # [id number] [facility] Lot# Expiration Date [facility] Swab 08/23/2025 11:1 9 AM EST Anna Marion MD POINT OF CARE TEST ENTER /EDIT ORDERABLES Final Result Performing Organization Address [facility] Co de Phone Number [facility] [address] [place] [phone] * POCT Rapid Covid-19 SALGADO ID NOW (08/23/2025 11:19 AM EST) Pathologist [facility] Coronavirus Antigen PCR Negative Negative, Indeterminate, None Detected, Trace, 3+, Specimen unsatisfactory for evaluation, Weakly Positive, 1+, 2+ QC Media Lot # [id number] Lot# Expiration Date Swab 08/23/2025 11:1 9 AM EST Anna Marion MD POINT OF CARE TEST ENTER /EDIT ORDERABLES Final Result * POCT Rapid Influenza B SALGADO ID NOW (08/23/2025 11:18 AM EST) Pathologist [facility] Influenza B Negative Negative, Indeterminate [facility] QC Media Lot # [id number] [facility] Lot# Expiration Date [facility] Swab 08/23/2025 11:1 8 AM EST Anna Marion MD POINT OF CARE TEST ENTER /EDIT ORDERABLES Final Result [facility] [address] [place] [phone] [phone] * FIT DNA/Cologuard Cancer Screening (06/18/2024) Cologuard Cancer Screen Negative Stool Key Rodríguez MD HEALTH MAINTENANCE Final Resu lt * (ABNORMAL) THINPREP TIS PAP AND HPV mRNA E6/E7, CT/NG, TRICH (02/22/2022 12:00 AM EDT) Chlamydia trachomatis RNA, TMA, Urogenital NOT DETECTED NOT DETECTED [facility] Clinical Information: None given [facility] COMMENT SEE COMMENT [facility] Comment: The analytical performance characteristics of this assay, when used to test SurePath(TM) specimens have been determined by [employer]. The modifications have not been cleared or approved by the FDA. This assay has been validated pursuant to the CLIA regulations and is used for clinical purposes. For additional information, please refer to https://education.Best[employer] Key[employer]/faq/ZEE769 (This link is being provided for information/ [...] along with historic and current clinical information. Comment: SEE COMMENT [facility] Comment: This case could not be evaluated with computer assisted technology. The slide was manually screened according to routine procedures. Area Plant Manager: SEE COMMENT [facility] Comment: ALS, CT(ASCP) CT screening location: [address] [address] HPV nRNA E6/E7 Not Detected Not Detected [facility] Comment: Methodology: Clinical Project Coordinator-Mediated Amplification This assay detects E6/E7 viral messenger RNA (mRNA) from 14 high-risk HPV types (16,18,31,33,35,39,45,51,52,56,58,59,66,68). Cervical sources are required for HPV testing. If a vaginal source from a patient who has had a total hysterectomy with removal of cervix was submitted, please contact the testing laboratory for alternative testing options. For additional information, please refer to http://[employer]/faq/DQI695n4 (This link if provided for information/ educational purposes only.) Infection Trichomonas vaginalis identified. [facility] Interpretation/Re sult: Negative for intraepithelial lesion or malignancy. [facility] LMP: NONE GIVEN [facility] Neisseria gonorrhoeae RNA, TMA, Urogenital NOT DETECTED NOT DETECTED [facility] Prev. BX: NONE GIVEN [facility] Prev. PAP: NONE GIVEN [facility] Review Area Plant Manager: SEE COMMENT [facility] Comment: DCR, CT(ASCP) CT screening location: [place] [address] SOURCE: None given [facility] Statement Of Adequacy: SEE COMMENT [facility] Comment: Satisfactory for evaluation. Endocervical/transformation zone component present. Age and/or menstrual status not provided Trichomonas vaginalis, QL, TMA, PAP Vial DETECTED(A) NOT DETECTED [facility] Comment: The analytical performance characteristics of this assay have been determined by [employer]. The modifications have not been cleared or approved by the FDA. This assay has been validated pursuant to the CLIA regulations and is used for clinical purposes. For additional information, please refer to http://education.[employer]/ faq/Trichomonastma (This link is being provided for information/ educational purposes only.) 02/22/2022 us Key Rodríguez MD LAB PATHOLOGY ORDERABLES Jo massey Result [facility] [address] * HEPATITIS C AB W/REFL TO HCV RNA, QN, PCR (07/12/2021 10:17 AM EDT) HEPATITIS C ANTIBODY NON-REACT TOBIAS NON-REACT TOBIAS [facility] INDEX 0.01 <1.00 [facility] Comment: HCV antibody was non-reactive. There is no laboratory evidence of HCV infection. In most cases, no further action is required. However, if recent HCV exposure is suspected, a test for HCV RNA (test code 14413) is suggested. For additional information please refer to http://[employer]/faq/QTU87q2 (This link is being provided for informational/ educational purposes only.) 07/12/2021 10:1 7 AM EDT us Key Rodríguez MD HISTORICAL/NON ORDERABLE LABS Final Result [facility] [address] * HIV 1/2 ANTIGEN/ANTIBODY,FOURTH GENERATION W/RFL (07/12/2021 10:17 AM EDT) HIV-1/2 ANTIGEN AND ANTIBODIES, 4TH GENERATION W/ REFLEX NON-REACT TOBIAS NON-REACT TOBIAS [facility] Comment: HIV-1 antigen and [...] purpose. For additional information please refer to http://[employer]/faq/CUJ801 (This link is being provided for informational/ educational purposes only.) The performance of this assay has not been clinically validated in patients less than 2 years old. 07/12/2021 10:1 7 AM EDT us Key Rodríguez MD LAB BLOOD ORDERABLES Final Re sult [facility] [address] from Last 3 Months or Most Recently Relevant to Health Maintenance Insurance [facility] < [address] [facility] STAND ADULT Care Teams Housekeeping Worker Relationship Specialty Start Date End Date Key Rodríguez MD [address] [place] [id number] PCP - General Family Medicine 09/23/18
--- OUTSIDE RECORDS SUMMARY | 2025-09-21 19:16 | XMS_ITS | Encounter Summary ---
Author Organization [employer] Address [address] [facility] [address] [address] Care Team Providers Care Wet Mixer Name Role Phone Key Rodríguez MD Primary Care Provider [phone] Reason for Visit * Reason Onset Date Comments Call Back Request 03/31/2025 Encounter Details Date Type Department Care Team ([facility] st Contact Info) Description 03/31/2025 Telephone [facility] [address] [place] [address] Key Rodríguez MD [address] [place] [id number] Call Back Request Social History Tobacco Use [...] Upcoming Encounters Date Type Department Care Team ([facility] st Contact Info) Description 12/07/2025 10:15 AM EDT Office Visit [facility] [address] [place] [address] Rohit Fairchild documented as of this encounter Visit Diagnoses Not on filedocumented in this encounter Additional Health Concerns Assessment Noted Time PHQ-9 Depression Total Score: 9 03/03/20 24 3:00 PM EDT documented as of this encounter Care Teams Wet Mixer Relationship Specialty Start Date End Date Key Rodríguez MD [address] [place] [id number] PCP - General Family Medicine 09/23/18 documented as of this encounter
[2025-09-21 22:33] LABS: Bacterial Vaginosis PCR POSITIVE (Negative); Candida Group PCR NOT DETECTED (Not Detect); Candida glab krusei PCR NOT DETECTED (Not Detect); Trichomonas vaginalis PCR NOT DETECTED (Not Detect)
[2025-09-21 23:04] LABS: CT PCR NOT DETECTED (Not Detect.); NG PCR NOT DETECTED (Not Detect.)
== END 2025-09-21 17:50 | disposition home or self-care (01) ==
LOC: HO.LNP 17:49
PROVIDERS: Visit Provider Family Medicine
DX: N89.8 Other specified noninflammatory disorders of vagina (principal); Z20.2 Contact with and (suspected) exposure to infections with a predominantly sexual mode of transmission; R30.0 Dysuria
CPT/HCPCS: 81515; 87086; 87491; 87591